=== PATIENT | female | born 1955 | race Caucasian/White ===

== ENCOUNTER 2016-10-23 14:58 | Emergency (ER) | payer MEDICARE, MEDICAID ==
[2016-10-23 15:25] VITALS: BP 145/93
[2016-10-23] MEDS ORDERED: IBUPROFEN 600 MG TABLET PO STA (15:48)
--- NOTE | 2016-10-23 15:48 | ED Physician Documentation ---
PD HPI LOWER EXT INJURY - Stated complaint Stated Complaint: R KNEE PX - Chief complaint Chief Complaint: Ext Problem - History obtained from History obtained from: Patient - History of Present Illness PD HPI LOW EXT INJURY LOCATION: Right, Hip, Knee Type of injury: Fall (she was walking up stairs with laundry when she felt her knee give out, pop, and cause her tof all to side. Some pain in hip as well, but mainly knee pain with ROM and walking. Feeling like it wants to pop again.) Where injury occurred: Home Timing - details: Abrupt onset, Still present Worsened by: Other (torsional movement while standing, also hurts with going up/ down steps.). No: Palpating Associated symptoms: Swelling (of the knee). No: Weakness, Numbness Similar symptoms before: Has not had sx before Recently seen: Not recently seen Review of Systems Cardiac: denies: Chest pain / pressure GI: denies: Abdominal Pain Skin: denies: Abrasion (s), Laceration (s) Musculoskeletal: reports: Extremity pain. 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, Breast implants, LEEP (Cervical surgery) - Present Medications Home Medications: Ambulatory Orders Medication Instructions Recorded Confirmed HYDROcod/ACETAM 5/325 [Vicodin 1 - 2 ea PO Q6H PRN #15 tablet 05/15/13 5/325] Hydrochlorothiazide 40 mg PO DAILY 05/15/13 05/15/13 Lisinopril 40 mg PO DAILY 05/15/13 05/15/13 Loratadine [Children's 10 mg PO DAILY 05/15/13 05/15/13 Clear-Atadine] Venlafaxine [Effexor] 75 mg PO DAILY 05/15/13 05/15/13 Hydrocodone/Acetaminophen [[place] 1 each PO Q6H PRN #20 tablet 10/23/16 5-325 Tablet] Naproxen 375 mg PO BID #20 tablet 10/23/16 - Allergies Allergies/Adverse Reactions: Allergies Allergy/AdvReac Type Severity Reaction Status Date / Time No Known Drug Allergies Allergy Verified 10/23/16 15:17 - Social History Does the pt smoke?: Yes Smoking Status: Current every day smoker Does the pt drink ETOH?: No Does the pt have substance abuse?: No - Immunizations Immunizations are current?: Yes PD ED PE NORMAL - Vitals Vital signs reviewed: Yes - General General: Alert and oriented X 3, No acute distress, Well developed/nourished - HEENT HEENT: Atraumatic - Neck Neck: Supple, no meningeal sign, No bony TTP, No adenopathy - Cardiac Cardiac: RRR, No murmur - Respiratory Respiratory: Clear bilaterally - Derm Derm: Normal color, Warm and dry, No rash - Extremities Extremities: Other (knee with mild effusion, no gross laxity with ligament testing, but does hurt with impacted rotational ([place]). No noted clicking. ) - Neuro Neuro: Alert and oriented X 3, No motor deficit, No sensory deficit Results - Vitals Vitals: Oxygen O2 Source Room air - Rads (name of study) knee Radiology: Prelim report reviewed (oval loose body in joint, presume old; no fractures, some arthritic changes. ) PD MEDICAL DECISION MAKING - ED course Complexity details: reviewed results, considered differential (knee generally painful for movement and twisting, with ligaments feeling okay. Mild effusion. Likely meniscal. ), d/w patient Departure - Departure Disposition: 01 Home, Self Care Clinical Impression: Knee strain Qualifiers: Encounter type: initial encounter Laterality: right Qualified Code(s): S86.911A - Strain of unspecified muscle(s) and tendon(s) at lower leg level, right leg, initial encounter Condition: Stable Record reviewed to determine appropriate education?: Yes Instructions: ED Meniscal Injury Knee Poss, ED Sprain Knee Follow-Up: Aubrey Pugh MD [Primary Care Provider] - Prescriptions: Naproxen 375 mg PO BID #20 tablet Hydrocodone/Acetaminophen [[place] 5-325 Tablet] 1 each PO Q6H PRN #20 tablet PRN Reason: Pain Comments: Naproxen or Ibuprofen twice daily. Cristian wrap for swelling of the knee. Knee brace when walking to support the knee ligaments and cartilage. Add hydrocodone as needed for pains. Follow up with PMD next week for recheck. Discharge Date/Time: 10/23/16 17:00
[2016-10-23] MEDS ORDERED: HYDROcod/ACETAM 5/325 MG TABLET PO STA (15:49)
[2016-10-23] MEDS ORDERED: HYDROcod/ACETAM 5/325 MG TABLET ONE (15:55)
[2016-10-23] MEDS ORDERED: IBUPROFEN 600 MG TABLET PO ONE (15:55)
--- NOTE | 2016-10-23 16:39 | XRAY Preliminary Report ---
Exam: XR Knee 4 View RT IMPRESSION: 1. No fracture. 2. Patellofemoral osteoarthritis with small osteophytes. 3. An oval shaped 8 x 6 mm calcified intra-articular loose body in the posterior part of the knee madison SCHMITT SITE ID: [id number]
--- NOTE | 2016-10-23 16:41 | XRAY Report ---
EXAM: RIGHT KNEE RADIOGRAPHY EXAM DATE: 10/23/2016 04:22 PM. CLINICAL HISTORY: Fall injury couple days ago; pain and swelling. COMPARISON: None. TECHNIQUE: 4 views. FINDINGS: Bones: No fractures or bone lesions. Joints: Patellofemoral osteoarthritis with small osteophytes. Nonspecific small effusion. No subluxat ions. An oval shaped 8 x 6 mm calcified intra-articular loose body is present in the posterior part o f the joint. Soft Tissues: Normal. No soft tissue swelling. IMPRESSION: 1. No fracture. 2. Patellofemoral osteoarthritis with small osteophytes. 3. An oval shaped 8 x 6 mm calcified intra-articular loose body in the posterior part of the knee madison SCHMITT Referring Provider Line: [phone] SITE ID: [id number]
== END 2016-10-23 17:00 | disposition home or self-care (01) ==
LOC: ED 14:58
DX: S86.911A Strain of unspecified muscle(s) and tendon(s) at lower leg level, right leg, initial encounter (principal); W10.9XXA Fall (on) (from) unspecified stairs and steps, initial encounter; Y92.018 Other place in single-family (private) house as the place of occurrence of the external cause; I10 Essential (primary) hypertension; Z86.73 Personal history of transient ischemic attack (TIA), and cerebral infarction without residual deficits; K21.9 Gastro-esophageal reflux disease without esophagitis; M19.90 Unspecified osteoarthritis, unspecified site; F17.200 Nicotine dependence, unspecified, uncomplicated
CPT/HCPCS: 73564; 99283; A9270

== ENCOUNTER 2017-06-10 11:38 | Outpatient (CLI) | payer MEDICARE, MEDICAID ==
--- NOTE | 2017-06-11 10:08 | XRAY Report ---
DATE OF SERVICE: 06/10/2017 LEFT KNEE: 06/10/2017 COMPARISON: None. INDICATION: Pain in the left knee. FINDINGS: There are mild tricompartmental degenerative changes. There is a small effusion. Alignment is normal. There is no evidence of acute fracture. There is a 2 cm calcification about the posterior knee, which is concerning for a loose body. IMPRESSION: 1. MILD TRICOMPARTMENTAL OSTEOARTHRITIS. 2. CONCERN FOR A POSTERIOR LOOSE BODY. CORRELATE CLINICALLY. TD: 06/11/2017 11:07 [place]
== END 2017-06-10 11:39 | disposition home or self-care (01) ==
LOC: DI.N 11:38
PROVIDERS: ATTEND Family Medicine
DX: M17.12 Unilateral primary osteoarthritis, left knee (principal)

== ENCOUNTER 2017-11-09 08:00 | Outpatient (CLI) | payer MEDICARE, MEDICAID ==
[2017-11-09 13:11] LABS: BASOPHILS % (AUTO) 0.5 %; EOSINOPHILS # (AUTO) 0.2 10^3/uL (0.0-0.7); EOSINOPHILS % (AUTO) 1.9 %; HGB - HEMOGLOBIN 15.3 g/dL (12.0-16.0); LYMPHOCYTES # (AUTO) 1.8 10^3/uL (1.5-3.5); LYMPHOCYTES % (AUTO) 20.4 %; MEAN CORPUSCULAR HEMOGLOBIN 31.7 pg (27.0-31.0); MEAN CORPUSCULAR HGB CONC 34.9 g/dL (32.0-36.0); MEAN CORPUSCULAR VOLUME 90.8 fL (81.0-99.0); MEAN PLATELET VOLUME 7.5 fL (7.9-10.8); MONOCYTES # (AUTO) 0.4 10^3/uL (0.0-1.0); MONOCYTES % (AUTO) 4.9 %; NEUTROPHILS # (AUTO) 6.6 10^3/uL (1.5-6.6); NEUTROPHILS % (AUTO) 72.3 %; PLT - PLATELET COUNT 252 10^3/uL (130-450); RED BLOOD COUNT 4.82 10^6/uL (4.20-5.40); RED CELL DISTRIBUTION WIDTH 12.5 % (12.0-15.0); WHITE BLOOD COUNT 9.1 x10^3/uL (4.8-10.8)
[2017-11-09 13:20] LABS: ALBUMIN 4.2 g/dL (3.2-5.5); ALBUMIN/GLOBULIN RATIO 1.4 (1.0-2.2); BILIRUBIN,TOTAL 0.6 mg/dL (0.2-1.0); CALCIUM 9.4 mg/dL (8.5-10.3); CREATININE 0.5 mg/dL (0.4-1.0); TOTAL PROTEIN 7.2 g/dL (6.7-8.2)
== END 2017-11-09 08:01 | disposition home or self-care (01) ==
LOC: LAB.N 08:00
PROVIDERS: ATTEND Family Medicine
DX: I10 Essential (primary) hypertension (principal)
CPT/HCPCS: 36415; 80053; 85025

== ENCOUNTER 2023-08-03 09:32 | Outpatient (CLI) | payer MEDICARE, MEDICAID ==
[2023-08-03 12:31] LABS: BASOPHILS # (AUTO) 0.1 10^3/uL (0.0-0.1); BASOPHILS % (AUTO) 1.2 %; EOSINOPHILS # (AUTO) 0.2 10^3/uL (0.0-0.7); EOSINOPHILS % (AUTO) 2.5 %; HCT - HEMATOCRIT 45.7 % (37.0-47.0); HGB - HEMOGLOBIN 15.7 g/dL (12.0-16.0); LYMPHOCYTES # (AUTO) 1.3 10^3/uL (1.5-3.5); LYMPHOCYTES % (AUTO) 15.3 %; MEAN CORPUSCULAR HEMOGLOBIN 32.5 pg (27.0-31.0); MEAN CORPUSCULAR HGB CONC 34.4 g/dL (32.0-36.0); MEAN CORPUSCULAR VOLUME 94.6 fL (81.0-99.0); MONOCYTES # (AUTO) 0.5 10^3/uL (0.0-1.0); MONOCYTES % (AUTO) 5.6 %; NEUTROPHILS # (AUTO) 6.4 10^3/uL (1.5-6.6); NEUTROPHILS % (AUTO) 75.2 %; PLT - PLATELET COUNT 236 10^3/uL (130-450); RED BLOOD COUNT 4.83 10^6/uL (4.20-5.40); RED CELL DISTRIBUTION WIDTH 11.7 % (12.0-15.0); WHITE BLOOD COUNT 8.5 x10^3/uL (4.8-10.8)
[2023-08-03 14:38] LABS: THYROID STIMULATING HORMONE 0.44 uIU/mL (0.34-5.60)
[2023-08-03 14:42] LABS: ALBUMIN 4.4 g/dL (3.2-5.5); ALBUMIN/GLOBULIN RATIO 1.6 (1.0-2.2); ALKALINE PHOSPHATASE 93 IU/L (42-121); ALT ALANINE AMINOTRANSFERASE 14 IU/L (10-60); AST ASPARTATE AMINOTRANSFERASE 20 IU/L (10-42); BILIRUBIN,TOTAL 0.5 mg/dL (0.2-1.0); BUN - BLOOD UREA NITROGEN 9 mg/dL (6-20); CALCIUM 10.1 mg/dL (8.5-10.3); CARBON DIOXIDE - CO2 31 mmol/L (21-32); CHLORIDE 96 mmol/L (101-111); CHOL/HDL RATIO 2.6 (<4.4); CHOLESTEROL 168 mg/dL; CREATININE 0.5 mg/dL (0.6-1.3); GAMMA GLUTAMYL TRANSPEPTIDASE 24 IU/L (9-64); GFR - MDRD 123 (>89); GLUCOSE 105 mg/dL (74-104); HDL CHOLESTEROL 64 mg/dL; LDL CHOLESTEROL,CALCULATED 86 mg/dL; LDL/HDL RATIO 1.3 (<4.4); POTASSIUM 3.3 mmol/L (3.5-4.5); SODIUM 135 mmol/L (135-145); TOTAL PROTEIN 7.2 g/dL (6.4-8.9); TRIGLYCERIDES 92 mg/dL (48-352); VLDL CHOLESTEROL 18 mg/dL
== END 2023-08-03 09:33 | disposition home or self-care (01) ==
LOC: LAB.N 09:32
PROVIDERS: ATTEND Nurse Practitioner
DX: I10 Essential (primary) hypertension (principal); Z13.220 Encounter for screening for lipoid disorders; F41.9 Anxiety disorder, unspecified; F32.A Depression, unspecified
CPT/HCPCS: 36415; 80053; 80061; 82977; 83721; 84443; 85025

== ENCOUNTER 2024-03-03 11:45 | Inpatient (IN) ==
[2024-03-03] MEDS: PANTOPRAZOLE 40 MG VIAL IVP STA (12:34)
[2024-03-03 12:54] LABS: BASOPHILS # (AUTO) 0.1 10^3/uL (0.0-0.1); BASOPHILS % (AUTO) 0.4 %; EOSINOPHILS % (AUTO) 0.1 %; HCT - HEMATOCRIT 30.8 % (37.0-47.0); HGB - HEMOGLOBIN 10.7 g/dL (12.0-16.0); LYMPHOCYTES # (AUTO) 1.4 10^3/uL (1.5-3.5); MEAN CORPUSCULAR HEMOGLOBIN 33.1 pg (27.0-31.0); MEAN CORPUSCULAR HGB CONC 34.7 g/dL (32.0-36.0); MEAN CORPUSCULAR VOLUME 95.4 fL (81.0-99.0); MEAN PLATELET VOLUME 8.9 fL (7.9-10.8); MONOCYTES # (AUTO) 0.5 10^3/uL (0.0-1.0); MONOCYTES % (AUTO) 3.1 %; NEUTROPHILS # (AUTO) 15.1 10^3/uL (1.5-6.6); NEUTROPHILS % (AUTO) 87.9 %; PLT - PLATELET COUNT 246 10^3/uL (130-450); RED BLOOD COUNT 3.23 10^6/uL (4.20-5.40); RED CELL DISTRIBUTION WIDTH 13.5 % (12.0-15.0); WHITE BLOOD COUNT 17.2 x10^3/uL (4.8-10.8)
[2024-03-03 12:59] LABS: INR 1.3 (0.8-1.2); PT - PROTHROMBIN TIME 13.5 secs (9.9-12.6)
[2024-03-03 13:04] LABS: ALBUMIN 3.7 g/dL (3.2-5.5); ALBUMIN/GLOBULIN RATIO 1.9 (1.0-2.2); ALKALINE PHOSPHATASE 57 IU/L (42-121); ALT ALANINE AMINOTRANSFERASE 8 IU/L (10-60); AST ASPARTATE AMINOTRANSFERASE 11 IU/L (10-42); BILIRUBIN,TOTAL 0.5 mg/dL (0.2-1.0); BUN - BLOOD UREA NITROGEN 45 mg/dL (6-20); CALCIUM 9.3 mg/dL (8.5-10.3); CARBON DIOXIDE - CO2 27 mmol/L (21-32); CHLORIDE 103 mmol/L (101-111); CREATININE 0.4 mg/dL (0.6-1.3); GFR - MDRD 160 (>89); GLUCOSE 105 mg/dL (74-104); POTASSIUM 2.9 mmol/L (3.5-4.5); SODIUM 140 mmol/L (135-145); TOTAL PROTEIN 5.7 g/dL (6.4-8.9)
[2024-03-03 13:05] LABS: LIPASE < 10 U/L (11-82)
[2024-03-03] MEDS ORDERED: iohexoL-300 100 ML VIAL ONE (13:43)
[2024-03-03] MEDS: POTASSIUM CHLOR 10 MEQ/100 ML 10 MEQ/100 ML BAG IV SCH (14:15)
--- NOTE | 2024-03-03 16:18 | ED Physician Documentation ---
History of Present Illness - Stated complaint Stated Complaint: ABD PX - Chief complaint Chief Complaint: Abd Pain - Additonal information Additional information: 68-year-old female presents with 4-day history of diarrhea, dark tarry stools. Also endorses for epigastric abdominal pain. Denies history of previous GI bleeds, blood thinning medications, but does report infrequent use nonsteroidal anti-inflammatory medications. Denies alcohol abuse. 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, Breast implants, LEEP (Cervical surgery) - Present Medications Home Medications: Ambulatory Orders Medication Instructions Recorded Confirmed HYDROcod/ACETAM 5/325 [Vicodin 1 - 2 ea PO Q6H PRN #15 tablet 05/15/13 5/325] Loratadine [Children's 10 mg PO DAILY 05/15/13 05/15/13 Clear-Atadine] Venlafaxine [Effexor] 75 mg PO DAILY 05/15/13 05/15/13 hydroCHLOROthiazide 40 mg PO DAILY 05/15/13 05/15/13 [Hydrochlorothiazide] lisinopriL [Lisinopril] 40 mg PO DAILY 05/15/13 05/15/13 Hydrocodone/Acetaminophen [[place] 1 each PO Q6H PRN #20 tablet 10/23/16 5-325 Tablet] Naproxen 375 mg PO BID #20 tablet 10/23/16 - Allergies Allergies/Adverse Reactions: Allergies Allergy/AdvReac Type Severity Reaction Status Date / Time No Known Drug Allergies Allergy Verified 03/03/24 12:03 - Social History Does the pt smoke?: Yes Smoking Status: Current every day smoker Does the pt drink ETOH?: No Does the pt have substance abuse?: No - Immunizations Immunizations are current?: Yes - POLST Patient has POLST: No PD ED PE NORMAL - Vitals Vital signs reviewed: Yes (Tachycardic) - General General: Alert and oriented X 3, No acute distress, Well developed/nourished - HEENT HEENT: Atraumatic, PERRL, EOMI, Ears normal, Moist mucous membranes, Pharynx benign - Neck Neck: Supple, no meningeal sign - Cardiac Cardiac: RRR - Respiratory Respiratory: No respiratory distress - Abdomen Abdomen: Normal bowel sounds - Female Female : Deferred - Rectal Rectal: Other (PositiveMelena) - Back Back: No CVA TTP - Derm Derm: Normal color - Extremities Extremities: No deformity Results - Vitals Vitals: Vital Signs - 24 hr 03/03/24 03/03/24 03/03/24 11:58 13:51 15:20 Temperature 35.8 C L Heart Rate 106 H 110 H 107 H Respiratory 18 Rate Blood Pressure 149/90 H 137/89 H 130/101 H O2 Saturation 96 97 95 03/03/24 17:00 Temperature Heart Rate 102 H Respiratory 12 Rate Blood Pressure 140/88 H O2 Saturation 94 Oxygen O2 Source Room air - EKG (time done) 1238 EKG releavant findings:: EKG personally interpreted by author of this note. Relevant findings are: Sinus rhythm with rate 109 bpm. Normal axis. Normal UT, QRS, QTc intervals. No ST segment elevations. Nonspecific ST-T wave abnormalities and incomplete left bundle branch block throughout. - Labs Labs: Microbiology 03/03/24 12:09 Occult Blood - Final Stool Laboratory Tests 03/03/24 03/03/24 03/03/24 12:43 12:43 12:43 WBC 17.2 H RBC 3.23 L Hgb 10.7 L Hct 30.8 L MCV 95.4 MCH 33.1 H MCHC 34.7 RDW 13.5 Plt Count 246 MPV 8.9 Neut # (Auto) 15.1 H Lymph # (Auto) 1.4 L [place] # (Auto) 0.5 Eos # (Auto) 0.0 Baso # (Auto) 0.1 Absolute Nucleated RBC 0.00 Nucleated RBC % 0.0 PT 13.5 H INR 1.3 H Sodium 140 Potassium 2.9 L Chloride 103 Carbon Dioxide 27 Anion Gap 10.0 BUN 45 H Creatinine 0.4 L Estimated GFR (MDRD) 160 Glucose 105 H Lactic Acid Calcium 9.3 Total Bilirubin 0.5 AST 11 ALT 8 L Alkaline Phosphatase 57 Total Protein 5.7 L Albumin 3.7 Globulin 2.0 L Albumin/Globulin Ratio 1.9 Lipase < 10 L Blood Type Blood Type Recheck Antibody Screen 03/03/24 03/03/24 03/03/24 12:43 12:43 13:37 WBC RBC Hgb Hct MCV MCH MCHC RDW Plt Count MPV Neut # (Auto) Lymph # (Auto) [place] # (Auto) Eos # (Auto) Baso # (Auto) Absolute Nucleated RBC Nucleated RBC % PT INR Sodium Potassium Chloride Carbon Dioxide Anion Gap BUN Creatinine Estimated GFR (MDRD) Glucose Lactic Acid 1.2 Calcium Total Bilirubin AST ALT Alkaline Phosphatase Total Protein Albumin Globulin Albumin/Globulin Ratio Lipase Blood Type O NEGATIVE Blood Type Recheck O NEGATIVE Antibody Screen NEGATIVE 03/03/24 16:39 WBC RBC Hgb 10.1 L Hct 29.5 L MCV MCH MCHC RDW Plt Count MPV Neut # (Auto) Lymph # (Auto) [place] # (Auto) Eos # (Auto) Baso # (Auto) Absolute Nucleated RBC Nucleated RBC % PT INR Sodium Potassium Chloride Carbon Dioxide Anion Gap BUN Creatinine Estimated GFR (MDRD) Glucose Lactic Acid Calcium Total Bilirubin AST ALT Alkaline Phosphatase Total Protein Albumin Globulin Albumin/Globulin Ratio Lipase Blood Type Blood Type Recheck Antibody Screen PD Medical Decision Making - ED course Complexity details: reviewed results, d/w patient, d/w tax consultant ED course: 68-year-old presents with 4-day history dark tarry stool. Afebrile, hematin stable and arrival to the emergency department. Obvious melena on exam. Patient denies chest pain but EKG demonstrates some nonspecific ST-T wave abnormalities. Hemoglobin 10.7 on arrival, baseline is approximately 14-15. Given 1 L IV hydration, IV Protonix, potassium repletion. Repeat H&H 10.1. Discussed with general surgical service at hospitalist who graciously agrees to hospitalize for further evaluation and serve. Departure - Departure Disposition: 68 [facility] DC/[facility] Clinical Impression: Upper GI bleed Discharge Date/Time: 03/03/24 18:40
[2024-03-03] MEDS: iohexoL-300 100 ML VIAL IVP ONE (16:20)
--- NOTE | 2024-03-03 16:27 | CT Report ---
PROCEDURE: Angio Abdomen INDICATIONS: GI Bleed CONTRAST: omni 300, 100 TECHNIQUE: After the administration of intravenous contrast, 2 and 5 mm sections acquired from the diaphragm to the iliac crests. 3-dimensional maximum intensity projection (MIP) coronal and sagittal reformats, a nd/or 3-dimensional volume rendering reformatting was then performed. For radiation dose reduction, the following was used: automated exposure control, adjustment of mA and/or kV according to patient size. COMPARISON: 02/28/2011 FINDINGS: Image quality: Excellent. Extravascular tissues: Scattered atelectasis at bilateral lung bases are seen.. Heart size is enlarg ed. Bilateral breast implants are grossly intact. There is hepatomegaly, no discrete hepatic lesion. Spleen is normal in size. Gallbladder is within no rmal limits. Biliary system is non dilated. Pancreas enhances normally. No adrenal nodules. Conge nital malrotation of right kidney is seen. Kidneys are normal in size and enhancement, without hydron ephrosis. Non-opacified bowel loops demonstrate normal wall thickness and caliber. No free fluid or air. No retroperitoneal or mesenteric adenopathy. No ventral hernias. No suspicious bony abnormal ities. No vertebral body compression fractures. Abdominal aorta: No abdominal aortic aneurysm or dissection. No hemodynamically significant stenosis Mesenteric arteries: Mesenteric arteries are well-opacified without hemodynamically significant sten osis or aneurysm. More distal branches of mesenteric arteries are fairly well opacified. No area of a ctive contrast accumulation is seen. Renal arteries: Atherosclerotic plaques are noted involving origins of bilateral renal arteries with less than 50% stenosis slightly worse on the right side. IMPRESSION: 1. No abdominal aortic aneurysm or dissection. No hemodynamically significant stenosis is seen in the abdominal aorta. 2. Normal contrast opacification of the mesenteric arteries and bilateral renal arteries. No area of active contrast extravasation or accumulation to suggest active bleeding. 3. There is no bowel obstruction or abnormal bowel wall thickening. No free fluid or free air. 4. Congenital malrotation of right kidney. No obstructing renal stones or hydronephrosis. Reviewed by: Иван Diaz MD on 03/03/2024 4:26 PM PDT Approved by: Иван Diaz MD on 03/03/2024 4:26 PM PDT Station ID: [id number]
[2024-03-03] MEDS: PANTOPRAZOLE 80 MG in SODIUM CHLORIDE 0.9% 100ML 100 ML IV STA (16:34)
[2024-03-03] MEDS: POTASSIUM CHLORIDE 20 MEQ/15 ML UDC PO STA (16:41)
[2024-03-03 16:43] LABS: HCT - HEMATOCRIT 29.5 % (37.0-47.0); HGB - HEMOGLOBIN 10.1 g/dL (12.0-16.0)
--- NOTE | 2024-03-03 17:50 | ANESTHESIA ---
Pre-Anesthesia VS, & Labs - Diagnosis gi bleed - Procedure egd Vital Signs: Temp Pulse Resp BP Pulse Ox O2 Flow Rate 35.8 C L 107 H 18 130/101 H 95 03/03/24 11:58 03/03/24 15:20 03/03/24 11:58 03/03/24 15:20 03/03/24 15:20 Height: 5 ft 7 in Weight (kg): 56 kg Body Mass Index: 19.3 BMI Classification: Normal - NPO >8 hours Last Food Intake: wednesday - Is Patient ?: No - Lab Results Current Lab Results: Laboratory Tests 03/03/24 16:39: Hgb 10.1 L, Hct 29.5 L 03/03/24 13:37: Blood Type Recheck O NEGATIVE 03/03/24 12:43: Blood Type O NEGATIVE, Antibody Screen NEGATIVE 03/03/24 12:43: Lactic Acid 1.2 03/03/24 12:43: Sodium 140, Potassium 2.9 L, Chloride 103, Carbon Dioxide 27, Anion Gap 10.0, BUN 45 H, Creatinine 0.4 L, Estimated GFR (MDRD) 160, Glucose 10 5 H, Calcium 9.3, Total Bilirubin 0.5, AST 11, ALT 8 L, Alkaline Phosphatase 57, Total Protein 5.7 L, Albumin 3.7, Globulin 2.0 L, Albumin/Globulin Ratio 1.9, Lipase < 10 L 03/03/24 12:43: PT 13.5 H, INR 1.3 H 03/03/24 12:43: WBC 17.2 H, RBC 3.23 L, Hgb 10.7 L, Hct 30.8 L, MCV 95.4, MCH 33.1 H, MCHC 34.7, RDW 13.5, Plt Count 246, MPV 8.9, Neut # (Auto) 15.1 H, Lymph # (Auto) 1.4 L, [place] # (Auto) 0.5, Eos # (Auto) 0.0, Baso # (Auto) 0.1, Absolute Nucleated RBC 0.00, Nucleated RBC % 0.0 Lab results reviewed: Yes Fish Bones: 03/03/24 16:39 03/03/24 12:43 Home Medications and Allergies Active Medications Potassium Chloride (Potassium Chloride) 10 meq in 100 mls @ 100 mls/hr IV Q1H ESTER Stop: 03/03/24 17:59 Last Admin: 03/03/24 16:20 Dose: Not Given Pantoprazole Sodium 80 mg/ (Sodium Chloride) 100 mls @ 10 mls/hr IV .Q10H STA Stop: 03/03/24 23:05 Last Admin: 03/03/24 16:34 Dose: 10 mls/hr Loratadine [Children's Clear-Atadine] 10 mg PO DAILY 05/15/13 Venlafaxine [Effexor] 75 mg PO DAILY 05/15/13 hydroCHLOROthiazide [Hydrochlorothiazide] 40 mg PO DAILY 05/15/13 lisinopriL [Lisinopril] 40 mg PO DAILY 05/15/13 Allergies/Adverse Reactions: Allergies Allergy/AdvReac Type Severity Reaction Status Date / Time No Known Drug Allergies Allergy Verified 03/03/24 12:03 Anes History & Medical History - Anesthetic History Anesthesia Complications: reports: No previous complications - Medical History Cardiovascular: reports: Hypertension Pulmonary: reports: Shortness of breath (long time smoker) Gastrointestinal: reports: GERD Musculoskeletal: reports: Osteoarthritis Endocrine/Autoimmune: reports: None Smoking Status: Current every day smoker Psychosocial: reports: No issues indicated - Surgical History General: reports: Hiatal hernia repair Gynecologic: reports: section, Breast implants, LEEP (Cervical surgery) Exam General: Alert, Oriented x3 Dental: Dentures full Upper Mouth Openin Fingerbreadth Neck Mobility: Normal Mallampati classification: II Thyromental Distance: less than 4 cm Plan Anesthesia Type: Total IV Consent for Procedure(s) Verified and Reviewed: Yes Code Status: Attempt Resuscitation ASA classification: 2-Mild systemic disease Is this case an emergency?: Yes
[2024-03-03] MEDS ORDERED: ONDANSETRON ODT 4 MG TABLET TL PRN (17:51)
[2024-03-03] MEDS ORDERED: ONDANSETRON 4 MG/2 ML VIAL IVP PRN ×2 (17:51→20:48)
--- NOTE | 2024-03-03 17:53 | CONSULTATION NOTE ---
Referring Provider Consult Date: 03/03/24 Chief Complaint - Chief Complaint Chief Complaint: epigastric pain History of Present Illness - History of Present Illness HPI Comment/Other: 68yoF with 3d of epigastric pain, anorexia, and black diarrhea. She denies n/v. States she has not eaten since wednesday. Feels lightheaded. Has not had similar pain in the past. Has never had an EGD. Had a colonoscopy last year. Lives with roomates and called EMS to get to the ED. 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, LEEP (Cervical surgery) - Family & Social History Living arrangement: At home Living Situation: With friend(s) - POLST Patient has POLST: No Meds/Allgy - Home Medications Home Medications: Ambulatory Orders Medication Instructions Recorded Confirmed HYDROcod/ACETAM 5/325 [Vicodin 1 - 2 ea PO Q6H PRN #15 tablet 05/15/13 5/325] Loratadine [Children's 10 mg PO DAILY 05/15/13 05/15/13 Clear-Atadine] Venlafaxine [Effexor] 75 mg PO DAILY 05/15/13 05/15/13 hydroCHLOROthiazide 40 mg PO DAILY 05/15/13 05/15/13 [Hydrochlorothiazide] lisinopriL [Lisinopril] 40 mg PO DAILY 05/15/13 05/15/13 Hydrocodone/Acetaminophen [[place] 1 each PO Q6H PRN #20 tablet 10/23/16 5-325 Tablet] Naproxen 375 mg PO BID #20 tablet 10/23/16 - Allergies Allergies/Adverse Reactions: Allergies Allergy/AdvReac Type Severity Reaction Status Date / Time No Known Drug Allergies Allergy Verified 03/03/24 12:03 Review of Systems - Constitutional Constitutional: reports: Fatigue, Weakness - Gastrointestinal Gastrointestinal: reports: Abdominal pain, Diarrhea, Black stools. denies: Vomiting Exam - Vital Signs Reviewed Vital Signs: Yes Vital Signs: Vital Signs x48h Temp Pulse Resp BP Pulse Ox 03/03/24 17:00 102 H 12 140/88 H 94 03/03/24 15:20 107 H 130/101 H 95 03/03/24 13:51 110 H 137/89 H 97 03/03/24 11:58 35.8 C L 106 H 18 149/90 H 96 - Physical Exam General Appearance: positive: Mild distress Eyes Bilateral: positive: Normal inspection, PERRL ENT: positive: ENT inspection nml Neck: positive: Nml inspection Respiratory: positive: No respiratory distress, Breath sounds nml Cardiovascular: positive: Regular rate & rhythm Peripheral Pulses: positive: 2+ Abdomen: positive: No distention, Tenderness (mild epigastric ttp). negative: Guarding, Rebound Skin: positive: Dry, Pallor Extremities: positive: Non-tender Neurologic/Psychiatric: positive: Oriented x3 Conclusion and Plan - Lab Results Microbiology Results 03/03/24 12:09 Stool Occult Blood - Final Laboratory Results 03/03/24 16:39: Hgb 10.1 L, Hct 29.5 L 03/03/24 13:37: Blood Type Recheck O NEGATIVE 03/03/24 12:43: Blood Type O NEGATIVE, Antibody Screen NEGATIVE 03/03/24 12:43: Lactic Acid 1.2 03/03/24 12:43: Sodium 140, Potassium 2.9 L, Chloride 103, Carbon Dioxide 27, Anion Gap 10.0, BUN 45 H, Creatinine 0.4 L, Estimated GFR (MDRD) 160, Glucose 105 H, Calcium 9.3, Total Bilirubin 0.5, AST 11, ALT 8 L, Alkaline Phosphatase 57, Total Protein 5.7 L, Albumin 3.7, Globulin 2.0 L, Albumin/Globulin Ratio 1.9, Lipase < 10 L 03/03/24 12:43: PT 13.5 H, INR 1.3 H 03/03/24 12:43: WBC 17.2 H, RBC 3.23 L, Hgb 10.7 L, Hct 30.8 L, MCV 95.4, MCH 33.1 H, MCHC 34.7, RDW 13.5, Plt Count 246, MPV 8.9, Neut # (Auto) 15.1 H, Lymph # (Auto) 1.4 L, [place] # (Auto) 0.5, Eos # (Auto) 0.0, Baso # (Auto) 0.1, Absolute Nucleated RBC 0.00, Nucleated RBC % 0.0 - Diagnosis Diagnosis: GI bleed - Consultation Note Consultation Note: 68yoF with GIB with 3d of black stools/diarrhea, most likely UGIB given epigastric pain. She carries a dx of GERD but does not take any antacid and has not had an EGD before. She is not anticoagulated, INR is 1.3, hgb is 5 points below her baseline at 10. She is tachycardic between 105-110 without hypotension or hypoxia. FOBT was positive in the ED. Discussed the indications, risks, and benefits of EGD with her, to include the risks of pain, bloating, perforation, bleeding, missed lesion. She understands and consent was obtained. - protonix started in the ED - IVF - to OR for EGD - admit to IM, trend hgb, continue BID protonix - if no source of bleed seen on EGD, will bowel prep and do colonoscopy tomorrow. Debra Rees DO General Surgeon
[2024-03-03] MEDS ORDERED: LIDOCAINE-PF 2% 10 ML AMP SUBQ ONE (17:58)
[2024-03-03] MEDS ORDERED: PROPOFOL 500 MG/50 ML 500 MG/50 ML VIAL ONE (17:58)
--- NOTE | 2024-03-03 18:02 | HISTORY & PHYSICAL EXAMINATION ---
Chief Complaint - Chief Complaint Chief Complaint: abdominal pain with dark stool and diarrhea History of Present Illness - Admitted From Admitted From:: Via ambulance - History Obtained From Records Reviewed: [facility] History obtained from: ER provider and surgeon Exam Limitations: none - History of Present Illness HPI Comment/Other: 68-year-old white female who does not drink alcohol to excess , nor does she have a history of peptic ulcer disease. She does use chronic daily aspirin that presents with epigastric abdominal pain with shortness of air. It started 3 days ago and the pain was waxing and waning. Also starting 3 days ago with loose stools that became very very dark. She denied any nausea, or vomiting. No antecedent weight loss. In the emergency room temperature was 35.8, heart rate 106. Blood pressure 149/90. Respirations 18. 96% on room air. She was rating her pain at a 7 out of a 10. Examination had hypoactive bowel sounds with a tender epigastrium. White cell count was 17.2. Hemoglobin 10.7. She presented approximately 12:30 in the afternoon and a repeat hemoglobin at 4:30 in the afternoon was 10.1. INR was 1.3. Potassium 2.9. BUN 45, creatinine 0.4. Lactic acid 1.2. Liver enzymes low. Total protein 5.7. Lipase less than 10. CT of the abdomen did not have abdominal aortic aneurysm or dissection. No stenosis seen in the abdominal aorta. She had normal contrast opacification of the mesenteric and bilateral renal arteries. No areas of active contrast extravasation or accumulation to suggest active bleeding. Bowel appeared normal. Congenital malrotation of the right kidney. she did have hepatomegaly. General surgery was contacted. I have discussed the case with them. Most likely we are dealing with an upper GI bleed secondary to chronic aspirin use. Surgery is asking that my service be in charge of this patient and that they will consult. Plan is for her to go to the endoscopy suite to get an EGD. I have ordered a type and screen and will have blood ready. History - Past Medical History Cardiovascular: reports: Hypertension, Peripheral Vascular Disease (Raynaud) Respiratory: reports: Shortness of breath (long time smoker) Endocrine/Autoimmune: reports: None GI: reports: GERD HEALTH SAFETY ENGINEER: reports: Other ( Postmenopausal bleeding. Pelvic ultrasound August 2022 with 1.6 mm endometrium. Unremarkable.) : reports: Incontinence, Other ( Right groin adenopathy October 2022. With vaginal pink discharge. Trichomonas.) HEENT: reports: None Psych: reports: Depression (sees mental health [employer] Ashok), Anxiety ( Prefers lorazepam. States her propranolol and hydroxyzine do nothing for her.), Panic attacks (severe, prefers lorazepam), Other ( Opioid use disorder. Previously on Percocet and Vicodin and off of them since 2022.) Musculoskeletal: reports: Osteoarthritis, Osteoporosis ( alendronate started December 21, 2023) Derm: reports: None MRSA Hx?: No Other Past Medical History: silicon breast implant rupture - Past Surgical History General: reports: Other (inguinal hernia repair ) /HEALTH SAFETY ENGINEER: reports: section, Breast implants (silicon), LEEP (Cervical surgery) - Family & Social History Family History Comment/Other: Mom has depression. 1 sister has leukemia. Second sister has lung cancer. Living arrangement: At home Living Situation: With friend(s) Social History Notes: 1/2 Pack per day smoker. - POLST Patient has POLST: No Meds/Allgy - Home Medications Home Medications: Ambulatory Orders Medication Instructions Recorded Confirmed HYDROcod/ACETAM 5/325 [Vicodin 1 - 2 ea PO Q6H PRN #15 tablet 05/15/13 5/325] Loratadine [Children's 10 mg PO DAILY 05/15/13 05/15/13 Clear-Atadine] Venlafaxine [Effexor] 75 mg PO DAILY 05/15/13 05/15/13 hydroCHLOROthiazide 40 mg PO DAILY 05/15/13 05/15/13 [Hydrochlorothiazide] lisinopriL [Lisinopril] 40 mg PO DAILY 05/15/13 05/15/13 Hydrocodone/Acetaminophen [[place] 1 each PO Q6H PRN #20 tablet 10/23/16 5-325 Tablet] Naproxen 375 mg PO BID #20 tablet 10/23/16 - Allergies Allergies/Adverse Reactions: Allergies Allergy/AdvReac Type Severity Reaction Status Date / Time No Known Drug Allergies Allergy Verified 03/03/24 12:03 Review of Systems - Constitutional Constitutional: denies: Fatigue, Fever, Weakness - Eyes Eyes: denies: Pain, Irritation, Amaurosis, Blurred vision - Ears, Nose & Throat Ears, Nose & Throat: denies: Hearing loss, Hearing aids, Vertigo, Nasal obstruction, Nasal congestion, Postnasal drainage, Sore throat - Cardiovascular Cariovascular: reports: Chest pain, Exertional dyspnea, Decr. exercise tolerance. denies: Irregular heart rate, Palpitations - Respiratory Respiratory: reports: SOB at rest, SOB with exertion. denies: Cough, Sputum production, Wheezing, Snoring - Gastrointestinal Gastrointestinal: reports: Abdominal pain, Diarrhea, Change in bowel habits, Black stools, Nausea. denies: Constipation, Rectal bleeding, Bloody stools, Vomiting, [place] blood emesis, Coffee grounds emesis - Genitourinary Genitourinary: reports: Urgency, Other ( more HSV-2 outbreaks. Started on prophylactic valacyclovir as needed December 2023) - Musculoskeletal Musculoskeletal: denies: Muscle pain, Back pain, Muscle aches, Stiffness - Integumentary Integumentary: denies: Rash, Pruritis, Lesions, Dryness - Neurological Neurological: denies: General weakness, Focal weakness, Headache, Dizziness, Numbness, Memory problems, Pre-existing deficit - Psychiatric Psychiatric: reports: Depression, Anxiety. denies: Delusions, Hallucinations - Endocrine Endocrine: reports: Intolerance to cold. denies: Polyuria, Polydypsia, Polyphagia - Hematologic/Lymphatic Hematologic/Lymphatic: denies: Anemia, Bruising, Blood clots, Lymphadenopathy Prior Level of Functionality: dependent with activities of daily living. No use of durable medical equipment. Exam - Vital Signs Reviewed Vital Signs: Yes Vital Signs: Vital Signs x48h Temp Pulse Resp BP Pulse Ox 03/03/24 17:00 102 H 12 140/88 H 94 03/03/24 15:20 107 H 130/101 H 95 03/03/24 13:51 110 H 137/89 H 97 03/03/24 11:58 35.8 C L 106 H 18 149/90 H 96 - Physical Exam General Appearance: positive: No acute distress, Alert, Other ( Seeing her after her endoscopy.) Eyes Bilateral: positive: PERRL, EOMI ENT: positive: Pharynx nml Neck: positive: No JVD. negative: Stiff neck Respiratory: positive: No respiratory distress. negative: Wheezes, Rales, Rh onchi Cardiovascular: positive: Regular rate & rhythm, Tachycardia Peripheral Pulses: positive: 1+ Abdomen: positive: No organomegaly, Nml bowel sounds, No distention, Other ( Aching epigastrium) Skin: positive: Warm, Dry, Pallor Extremities: positive: Full ROM, No pedal edema Neurologic/Psychiatric: positive: Oriented x3, CN's nml (2-12), Motor nml Conclusion/Plan - Problem List (1) Melena Conclusion/Plan: Attributed to upper GI bleed. At this time there is no definitive history of alcohol abuse. As such we are not suspecting esophageal varices or alcoholic ga stritis. MCV is normal. She does take aspirin on a daily basis. So we suspect that she has nonsteroidal induced gastritis. Plan: Observation status n.p.o. status and I have spoken to general surgery. She is to go for EGD now I will check hemoglobin after her EGD Type and screen for 1 unit of blood and be prepared to transfuse if she drops below 7 g of hemoglobin Protonix IV push given in the emergency room. I will continue Protonix IV push daily and switch to oral when she can take p.o. (2) Acute blood loss anemia Conclusion/Plan: Hemoglobin in July 2023 is 15.7 when I review her office chart. Today's hemoglobin is 5 g below that. Albeit it is stable 4 hours apart when checked in the ER. Transfusion is indicated when hemoglobin is below 7. I will, as stated above, check hemoglobin after EGD. Check hemoglobin again tomorrow morning. I have already tried and screened her for 1 unit of blood. (3) Generalized anxiety disorder Conclusion/Plan: She takes lorazepam half milligram tablet twice a day as needed. Not to exceed 2 tablets a day. Last fill was February 10. Plan: I plan to give her her half a milligram p.o. twice daily. If she remains n.p.o. I will give her half a milligram IV push twice daily. Both of them will be as needed. (4) Tobacco abuse Conclusion/Plan: This may be contributing to gastritis. Taking an aspirin and smoking. She was given nicotine Patch in the primary care provider office. plan: Nicotine 14 mg per 24-hour patch - Lab Results Lab results reviewed: Yes Fish Bones: 03/03/24 16:39 03/03/24 12:43
[2024-03-03] MEDS ORDERED: fentaNYL 100 MCG/2 ML VIAL ONE ×3 (19:03→19:58)
[2024-03-03] MEDS ORDERED: LABETALOL 5 MG/1 ML 20 ML MDV ONE (19:07)
[2024-03-03] MEDS ORDERED: ePHEDrine 50 MG/ML VIAL IVP ONE (19:12)
[2024-03-03] MEDS ORDERED: PHENYLEPHRINE HCL 0.5 MG/5 ML AMPULE ONE (19:12)
[2024-03-03] MEDS ORDERED: EPINEPHrine 1 MG/ML AMP ONE (19:16)
[2024-03-03] MEDS ORDERED: THROMBIN (RECOMBINANT) 5,000 UNIT VIAL TOP ONE (19:17)
[2024-03-03] MEDS ORDERED: SUCCINYLCHOLINE 200 MG/10 ML VIAL ONE (19:24)
[2024-03-03] MEDS ORDERED: ONDANSETRON 4 MG/2 ML VIAL ONE (19:24)
[2024-03-03] MEDS ORDERED: PROPOFOL 200 MG/20 ML VIAL IVP ONE (19:55)
[2024-03-03] MEDS: EPINEPHrine 1 MG/ML AMP SUBQ ONE (20:00)
[2024-03-03] MEDS: SODIUM CHLORIDE 0.9% 10 ML VIAL IVP ONE (20:00)
[2024-03-03] MEDS: THROMBIN (RECOMBINANT) 5,000 UNIT VIAL TOP ONE (20:00)
[2024-03-03] MEDS: LACTATED RINGERS 100 ML IV ONE (20:24)
--- NOTE | 2024-03-03 20:33 | OPERATIVE REPORT ---
Operative Report - General Admit Date: 03/03/24 Procedure Date: 03/03/24 Pre-Op Diagnosis: GI bleed Procedure Performed: EGD with interventions (biopsy, hemorrhage control) Post Op Diagnosis: Upper GI Bleed - Procedure Note Primary Surgeon: Debra Rees DO Anesthesia Provider: Manish Sevilla CRNA Anesthesia Technique: General ET tube Pathology: 1) Random duodenal biopsies 2) Random antral biopsies 3) Cold forcep biopsy of prepyloric ulcer 4) Cold forcep biopsy of rosendo's ulcer Estimated Blood Loss (mL): 15 Indications: GI Bleed, epigastric pain Findings: Gastric lumen full of large volume blood, fresh mixed with old. Three sites of bleeding identified: 1) Hemorrhagic duodenitis throughout entire duodenum (bulb - 3rd portion), 2) bleeding prepyloric ulcer, 4) bleeding rosendo's ulcer. Both ulcers were injected with epinephrine, and camerons ulcer also treated with coagulation. Hemostasis achieved at both sites. Complications: none - Other Other Information/Narrative: Full endoscopy report with images to be uploaded from endoscopy software. Debra Rees DO [facility] General Surgeon Bladimir
[2024-03-03] MEDS ORDERED: NALOXONE 0.4 MG/ML VIAL IVP PRN (20:48)
[2024-03-03] MEDS ORDERED: MORPHINE 2 MG/ML CARPUJECT IVP PRN (20:48)
[2024-03-03] MEDS ORDERED: ATROPINE ABBOJECT 1 MG/10 ML SYRINGE IVP PRN (20:48)
[2024-03-03] MEDS ORDERED: ePHEDrine 50 MG/ML VIAL IVP PRN (20:48)
[2024-03-03] MEDS ORDERED: HYDROmorphone 0.5 MG/0.5 ML SYRINGE IVP PRN (20:48)
[2024-03-03] MEDS ORDERED: fentaNYL 100 MCG/2 ML VIAL IVP PRN (20:48)
[2024-03-03 20:59] LABS: HCT - HEMATOCRIT 26.2 % (37.0-47.0); HGB - HEMOGLOBIN 8.8 g/dL (12.0-16.0); MEAN CORPUSCULAR HEMOGLOBIN 32.8 pg (27.0-31.0); MEAN CORPUSCULAR HGB CONC 33.6 g/dL (32.0-36.0); MEAN CORPUSCULAR VOLUME 97.8 fL (81.0-99.0); RED BLOOD COUNT 2.68 10^6/uL (4.20-5.40); RED CELL DISTRIBUTION WIDTH 13.8 % (12.0-15.0); WHITE BLOOD COUNT 21.1 x10^3/uL (4.8-10.8)
[2024-03-03] MEDS ORDERED: LACTATED RINGERS 1,000 ML IV SCH (21:00)
--- NOTE | 2024-03-03 21:06 | ANESTHESIA POST OP EVALUATION ---
Anesthesia Post Eval - Post Anesthesia Eval Vitals: Last Vital Signs Temp 36.5 C 03/03/24 20:45 Pulse 74 03/03/24 21:05 Resp 18 03/03/24 21:05 BP 152/82 H 03/03/24 21:05 Pulse Ox 96 03/03/24 21:05 O2 Flow Rate CV Function Including HR & BP: Stable Pain Control: Satisfactory Nausea & Vomiting: Negative Mental Status: Baseline Respiratory Status: Airway Patent Hydration Status: Satisfactory Anesthesia Complications: None
[2024-03-03] MEDS: NICOTINE 14 MG PATCH TOP SCH (21:31)
[2024-03-03] MEDS: LACTATED RINGERS 1,000 ML IV SCH (21:32)
[2024-03-04] MEDS: SODIUM CHLORIDE FLUSH 0.9% 10 ML SYRINGE IVP SCH (00:21)
[2024-03-04] MEDS: PHENOL THROAT SPRAY 177 ML MM PRN (00:50)
[2024-03-04] MEDS: SODIUM CHLORIDE FLUSH 0.9% 10 ML SYRINGE IVP PRN (04:47)
[2024-03-04] MEDS: LORazepam 2 MG/ML VIAL IVP PRN (04:47)
[2024-03-04 05:46] LABS: BASOPHILS # (AUTO) 0.1 10^3/uL (0.0-0.1); BASOPHILS % (AUTO) 0.5 %; EOSINOPHILS # (AUTO) 0.1 10^3/uL (0.0-0.7); EOSINOPHILS % (AUTO) 0.5 %; HCT - HEMATOCRIT 24.9 % (37.0-47.0); HGB - HEMOGLOBIN 8.3 g/dL (12.0-16.0); LYMPHOCYTES # (AUTO) 1.9 10^3/uL (1.5-3.5); LYMPHOCYTES % (AUTO) 13.7 %; MEAN CORPUSCULAR HEMOGLOBIN 33.3 pg (27.0-31.0); MEAN CORPUSCULAR HGB CONC 33.3 g/dL (32.0-36.0); MEAN PLATELET VOLUME 8.9 fL (7.9-10.8); MONOCYTES # (AUTO) 0.7 10^3/uL (0.0-1.0); NEUTROPHILS # (AUTO) 10.8 10^3/uL (1.5-6.6); PLT - PLATELET COUNT 163 10^3/uL (130-450); RED BLOOD COUNT 2.49 10^6/uL (4.20-5.40); RED CELL DISTRIBUTION WIDTH 13.7 % (12.0-15.0); WHITE BLOOD COUNT 13.5 x10^3/uL (4.8-10.8)
[2024-03-04] MEDS ORDERED: PANTOPRAZOLE 40 MG VIAL IVP SCH (07:00)
[2024-03-04] MEDS: PANTOPRAZOLE 40 MG VIAL IVP SCH (07:30)
[2024-03-04] MEDS: CYCLOBENZAPRINE 10 MG TABLET PO PRN (08:57)
[2024-03-04] MEDS: ACETAMINOPHEN 325 MG TABLET PO PRN (08:57)
--- NOTE | 2024-03-04 09:11 | PHARMACY PROGRESS NOTE ---
- Best Possible Medication History Admit Date and Time: 03/03/24 6332 Processed by: Pharmacy Medications reviewed in ED?: No Patient Interview: Completed Secondary Source(s): Pharmacy records, Insurance records As the person ultimately responsible for medication therapy, providers are able to order a medication from an existing home medication list in [facility] via the "Reconcile Routine" prior to Confirmation of that medication by practice support specialist. Such practice is discouraged except when the physician, in their clinical judgment, deems that a medical need exists for a medication without regard to previous use.
[2024-03-04] MEDS: SUCRALFATE 1 GM/10 ML UDC PO SCH (10:40)
--- NOTE | 2024-03-04 10:49 | PROVIDER PROGRESS NOTE ---
Subjective - Prog Note Date Prog Note Date: 03/04/24 - Subjective Pt reports feeling: Improved ( feeling very weak overall. denies nausea and vomiting or any abdominal pain) Objective - Vital Signs/Intake & Output Vital Signs: Vital Signs x48h Temp Pulse Resp BP BP Pulse Ox O2 Flow Rate 03/04/24 08:41 36.5 C 93 18 134/90 H 95 2 03/04/24 04:30 36.7 C 101 H 16 108/73 98 2 Intake & Output: Intake & Output 03/01/24 03/02/24 03/03/24 03/04/24 23:59 23:59 23:59 23:59 Intake Total 233.333 893.75 Output Total 600 Balance 233.333 293.75 - Objective General Appearance: positive: No acute distress Respiratory: positive: Chest non-tender, No respiratory distress Cardiovascular: positive: Regular rate & rhythm Abdomen: positive: Non-tender Skin: positive: Color nml Extremities: positive: Non-tender Neurologic/Psychiatric: positive: Oriented x3 - Lab Results Fish Bones: 03/04/24 05:38 03/03/24 20:55 Other Labs: Lab Results x24hrs 03/04/24 03/03/24 03/03/24 Range/Units 05:38 20:55 20:55 WBC 13.5 H 21.1 H (4.8-10.8) x10^3/uL RBC 2.49 L 2.68 L (4.20-5.40) 10^6/uL Hgb 8.3 L 8.8 L (12.0-16.0) g/dL Hct 24.9 L 26.2 L (37.0-47.0) % MCV 100.0 H 97.8 (81.0-99.0) fL MCH 33.3 H 32.8 H (27.0-31.0) pg MCHC 33.3 33.6 (32.0-36.0) g/dL RDW 13.7 13.8 (12.0-15.0) % Plt Count 163 217 (130-450) 10^3/uL MPV 8.9 9.0 (7.9-10.8) fL Neut # (Auto) 10.8 H (1.5-6.6) 10^3/uL Lymph # (Auto) 1.9 (1.5-3.5) 10^3/uL Frontier # (Auto) 0.7 (0.0-1.0) 10^3/uL Eos # (Auto) 0.1 (0.0-0.7) 10^3/uL Baso # (Auto) 0.1 (0.0-0.1) 10^3/uL Absolute Nucleated RBC 0.00 x10^3/uL Nucleated RBC % 0.0 /100WBC PT (9.9-12.6) secs INR (0.8-1.2) Sodium (135-145) mmol/L Potassium 3.3 L (3.5-4.5) mmol/L Chloride (101-111) mmol/L Carbon Dioxide (21-32) mmol/L Anion Gap (6-13) BUN (6-20) mg/dL Creatinine (0.6-1.3) mg/dL Estimated GFR (MDRD) (>89) Glucose (74-104) mg/dL Lactic Acid (0.5-2.2) mmol/L Calcium (8.5-10.3) mg/dL Total Bilirubin (0.2-1.0) mg/dL AST (10-42) IU/L ALT (10-60) IU/L Alkaline Phosphatase (42-121) IU/L Total Protein (6.4-8.9) g/dL Albumin (3.2-5.5) g/dL Globulin (2.1-4.2) g/dL Albumin/Globulin Ratio (1.0-2.2) Lipase (11-82) U/L Blood Type Blood Type Recheck Antibody Screen 03/03/24 03/03/24 03/03/24 Range/Units 16:39 13:37 12:43 WBC (4.8-10.8) x10^3/uL RBC (4.20-5.40) 10^6/uL Hgb 10.1 L (12.0-16.0) g/dL Hct 29.5 L (37.0-47.0) % MCV (81.0-99.0) fL MCH (27.0-31.0) pg MCHC (32.0-36.0) g/dL RDW (12.0-15.0) % Plt Count (130-450) 10^3/uL MPV (7.9-10.8) fL Neut # (Auto) (1.5-6.6) 10^3/uL Lymph # (Auto) (1.5-3.5) 10^3/uL Frontier # (Auto) (0.0-1.0) 10^3/uL Eos # (Auto) (0.0-0.7) 10^3/uL Baso # (Auto) (0.0-0.1) 10^3/uL Absolute Nucleated RBC x10^3/uL Nucleated RBC % /100WBC PT (9.9-12.6) secs INR (0.8-1.2) Sodium (135-145) mmol/L Potassium (3.5-4.5) mmol/L Chloride (101-111) mmol/L Carbon Dioxide (21-32) mmol/L Anion Gap (6-13) BUN (6-20) mg/dL Creatinine (0.6-1.3) mg/dL Estimated GFR (MDRD) (>89) Glucose (74-104) mg/dL Lactic Acid (0.5-2.2) mmol/L Calcium (8.5-10.3) mg/dL Total Bilirubin (0.2-1.0) mg/dL AST (10-42) IU/L ALT (10-60) IU/L Alkaline Phosphatase (42-121) IU/L Total Protein (6.4-8.9) g/dL Albumin (3.2-5.5) g/dL Globulin (2.1-4.2) g/dL Albumin/Globulin Ratio (1.0-2.2) Lipase (11-82) U/L Blood Type O NEGATIVE Blood Type Recheck O NEGATIVE Antibody Screen NEGATIVE 03/03/24 03/03/24 03/03/24 Range/Units 12:43 12:43 12:43 WBC (4.8-10.8) x10^3/uL RBC (4.20-5.40) 10^6/uL Hgb (12.0-16.0) g/dL Hct (37.0-47.0) % MCV (81.0-99.0) fL MCH (27.0-31.0) pg MCHC (32.0-36.0) g/dL RDW (12.0-15.0) % Plt Count (130-450) 10^3/uL MPV (7.9-10.8) fL Neut # (Auto) (1.5-6.6) 10^3/uL Lymph # (Auto) (1.5-3.5) 10^3/uL Frontier # (Auto) (0.0-1.0) 10^3/uL Eos # (Auto) (0.0-0.7) 10^3/uL Baso # (Auto) (0.0-0.1) 10^3/uL Absolute Nucleated RBC x10^3/uL Nucleated RBC % /100WBC PT 13.5 H (9.9-12.6) secs INR 1.3 H (0.8-1.2) Sodium 140 (135-145) mmol/L Potassium 2.9 L (3.5-4.5) mmol/L Chloride 103 (101-111) mmol/L Carbon Dioxide 27 (21-32) mmol/L Anion Gap 10.0 (6-13) BUN 45 H (6-20) mg/dL Creatinine 0.4 L (0.6-1.3) mg/dL Estimated GFR (MDRD) 160 (>89) Glucose 105 H (74-104) mg/dL Lactic Acid 1.2 (0.5-2.2) mmol/L Calcium 9.3 (8.5-10.3) mg/dL Total Bilirubin 0.5 (0.2-1.0) mg/dL AST 11 (10-42) IU/L ALT 8 L (10-60) IU/L Alkaline Phosphatase 57 (42-121) IU/L Total Protein 5.7 L (6.4-8.9) g/dL Albumin 3.7 (3.2-5.5) g/dL Globulin 2.0 L (2.1-4.2) g/dL Albumin/Globulin Ratio 1.9 (1.0-2.2) Lipase < 10 L (11-82) U/L Blood Type Blood Type Recheck Antibody Screen 03/03/24 Range/Units 12:43 WBC 17.2 H (4.8-10.8) x10^3/uL RBC 3.23 L (4.20-5.40) 10^6/uL Hgb 10.7 L (12.0-16.0) g/dL Hct 30.8 L (37.0-47.0) % MCV 95.4 (81.0-99.0) fL MCH 33.1 H (27.0-31.0) pg MCHC 34.7 (32.0-36.0) g/dL RDW 13.5 (12.0-15.0) % Plt Count 246 (130-450) 10^3/uL MPV 8.9 (7.9-10.8) fL Neut # (Auto) 15.1 H (1.5-6.6) 10^3/uL Lymph # (Auto) 1.4 L (1.5-3.5) 10^3/uL Frontier # (Auto) 0.5 (0.0-1.0) 10^3/uL Eos # (Auto) 0.0 (0.0-0.7) 10^3/uL Baso # (Auto) 0.1 (0.0-0.1) 10^3/uL Absolute Nucleated RBC 0.00 x10^3/uL Nucleated RBC % 0.0 /100WBC PT (9.9-12.6) secs INR (0.8-1.2) Sodium (135-145) mmol/L Potassium (3.5-4.5) mmol/L Chloride (101-111) mmol/L Carbon Dioxide (21-32) mmol/L Anion Gap (6-13) BUN (6-20) mg/dL Creatinine (0.6-1.3) mg/dL Estimated GFR (MDRD) (>89) Glucose (74-104) mg/dL Lactic Acid (0.5-2.2) mmol/L Calcium (8.5-10.3) mg/dL Total Bilirubin (0.2-1.0) mg/dL AST (10-42) IU/L ALT (10-60) IU/L Alkaline Phosphatase (42-121) IU/L Total Protein (6.4-8.9) g/dL Albumin (3.2-5.5) g/dL Globulin (2.1-4.2) g/dL Albumin/Globulin Ratio (1.0-2.2) Lipase (11-82) U/L Blood Type Blood Type Recheck Antibody Screen Sepsis Event Note (H) - Evaluation Current Stage of Sepsis: Ruled out Assessment/Plan - Problem List (1) Acute blood loss anemia Impression: EGD yesterday showing large volume of blood in gastric lumen. 3 sites of bleeding were identified and hemostasis was achieved PPI twice daily Carafate Encourage absolutely no NSAID or aspirin use Likely home in a.m. (2) Gastrointestinal hemorrhage with melena Impression: continues to be stable Recheck hemoglobin this afternoon and again in the morning (3) Generalized anxiety disorder Impression: continue current Ativan regimen (4) Tobacco abuse Impression: continue nicotine patch
--- NOTE | 2024-03-04 11:04 | PROVIDER PROGRESS NOTE ---
Subjective - General Admit Date: 03/03/24 Procedure Date: 03/03/24 Post Op Days: 1 Procedure Performed: EGD with biopsy and hemorrhage control - Other Other Information/Narrative: EGD yesterday evening with two actively bleeding gastric ulcers (Ashwin's and pre-pyloric), as well as hemorrhagic duodenitis. Bleeding at both ulcers controlled with epinephrine and cautery. Post-procedural Hgb 8.8 and this AM stable at 8.3. Epigastic pain is improved this AM, no nausea, is hungry. Tachycardia has resolved, no hypotension. Objective - Patient Data Reviewed Vital Signs: Yes Vital Signs: Vital Signs x48h Temp Pulse Resp BP BP Pulse Ox O2 Flow Rate 03/04/24 08:41 36.5 C 93 18 134/90 H 95 2 03/04/24 04:30 36.7 C 101 H 16 108/73 98 2 Weight: Weight 03/02/24 03/03/24 03/04/24 23:59 23:59 23:59 Weight (kg) 56 kg Intake & Output: Intake and Output Totals x24h 03/02/24 03/03/24 03/04/24 23:59 23:59 23:59 Intake Total 233.333 893.75 Output Total 600 Balance 233.333 293.75 - Lab Results Lab Results: 03/04/24 05:38 03/03/24 20:55 Other Lab Results: Lab Results x24hrs 03/04/24 03/03/24 03/03/24 Range/Units 05:38 20:55 20:55 WBC 13.5 H 21.1 H (4.8-10.8) x10^3/uL RBC 2.49 L 2.68 L (4.20-5.40) 10^6/uL Hgb 8.3 L 8.8 L (12.0-16.0) g/dL Hct 24.9 L 26.2 L (37.0-47.0) % MCV 100.0 H 97.8 (81.0-99.0) fL MCH 33.3 H 32.8 H (27.0-31.0) pg MCHC 33.3 33.6 (32.0-36.0) g/dL RDW 13.7 13.8 (12.0-15.0) % Plt Count 163 217 (130-450) 10^3/uL MPV 8.9 9.0 (7.9-10.8) fL Neut # (Auto) 10.8 H (1.5-6.6) 10^3/uL Lymph # (Auto) 1.9 (1.5-3.5) 10^3/uL [place] # (Auto) 0.7 (0.0-1.0) 10^3/uL Eos # (Auto) 0.1 (0.0-0.7) 10^3/uL Baso # (Auto) 0.1 (0.0-0.1) 10^3/uL Absolute Nucleated RBC 0.00 x10^3/uL Nucleated RBC % 0.0 /100WBC PT (9.9-12.6) secs INR (0.8-1.2) Sodium (135-145) mmol/L Potassium 3.3 L (3.5-4.5) mmol/L Chloride (101-111) mmol/L Carbon Dioxide (21-32) mmol/L Anion Gap (6-13) BUN (6-20) mg/dL Creatinine (0.6-1.3) mg/dL Estimated GFR (MDRD) (>89) Glucose (74-104) mg/dL Lactic Acid (0.5-2.2) mmol/L Calcium (8.5-10.3) mg/dL Total Bilirubin (0.2-1.0) mg/dL AST (10-42) IU/L ALT (10-60) IU/L Alkaline Phosphatase (42-121) IU/L Total Protein (6.4-8.9) g/dL Albumin (3.2-5.5) g/dL Globulin (2.1-4.2) g/dL Albumin/Globulin Ratio (1.0-2.2) Lipase (11-82) U/L Blood Type Blood Type Recheck Antibody Screen 03/03/24 03/03/24 03/03/24 Range/Units 16:39 13:37 12:43 WBC (4.8-10.8) x10^3/uL RBC (4.20-5.40) 10^6/uL Hgb 10.1 L (12.0-16.0) g/dL Hct 29.5 L (37.0-47.0) % MCV (81.0-99.0) fL MCH (27.0-31.0) pg MCHC (32.0-36.0) g/dL RDW (12.0-15.0) % Plt Count (130-450) 10^3/uL MPV (7.9-10.8) fL Neut # (Auto) (1.5-6.6) 10^3/uL Lymph # (Auto) (1.5-3.5) 10^3/uL [place] # (Auto) (0.0-1.0) 10^3/uL Eos # (Auto) (0.0-0.7) 10^3/uL Baso # (Auto) (0.0-0.1) 10^3/uL Absolute Nucleated RBC x10^3/uL Nucleated RBC % /100WBC PT (9.9-12.6) secs INR (0.8-1.2) Sodium (135-145) mmol/L Potassium (3.5-4.5) mmol/L Chloride (101-111) mmol/L Carbon Dioxide (21-32) mmol/L Anion Gap (6-13) BUN (6-20) mg/dL Creatinine (0.6-1.3) mg/dL Estimated GFR (MDRD) (>89) Glucose (74-104) mg/dL Lactic Acid (0.5-2.2) mmol/L Calcium (8.5-10.3) mg/dL Total Bilirubin (0.2-1.0) mg/dL AST (10-42) IU/L ALT (10-60) IU/L Alkaline Phosphatase (42-121) IU/L Total Protein (6.4-8.9) g/dL Albumin (3.2-5.5) g/dL Globulin (2.1-4.2) g/dL Albumin/Globulin Ratio (1.0-2.2) Lipase (11-82) U/L Blood Type O NEGATIVE Blood Type Recheck O NEGATIVE Antibody Screen NEGATIVE 03/03/24 03/03/24 03/03/24 Range/Units 12:43 12:43 12:43 WBC (4.8-10.8) x10^3/uL RBC (4.20-5.40) 10^6/uL Hgb (12.0-16.0) g/dL Hct (37.0-47.0) % MCV (81.0-99.0) fL MCH (27.0-31.0) pg MCHC (32.0-36.0) g/dL RDW (12.0-15.0) % Plt Count (130-450) 10^3/uL MPV (7.9-10.8) fL Neut # (Auto) (1.5-6.6) 10^3/uL Lymph # (Auto) (1.5-3.5) 10^3/uL [place] # (Auto) (0.0-1.0) 10^3/uL Eos # (Auto) (0.0-0.7) 10^3/uL Baso # (Auto) (0.0-0.1) 10^3/uL Absolute Nucleated RBC x10^3/uL Nucleated RBC % /100WBC PT 13.5 H (9.9-12.6) secs INR 1.3 H (0.8-1.2) Sodium 140 (135-145) mmol/L Potassium 2.9 L (3.5-4.5) mmol/L Chloride 103 (101-111) mmol/L Carbon Dioxide 27 (21-32) mmol/L Anion Gap 10.0 (6-13) BUN 45 H (6-20) mg/dL Creatinine 0.4 L (0.6-1.3) mg/dL Estimated GFR (MDRD) 160 (>89) Glucose 105 H (74-104) mg/dL Lactic Acid 1.2 (0.5-2.2) mmol/L Calcium 9.3 (8.5-10.3) mg/dL Total Bilirubin 0.5 (0.2-1.0) mg/dL AST 11 (10-42) IU/L ALT 8 L (10-60) IU/L Alkaline Phosphatase 57 (42-121) IU/L Total Protein 5.7 L (6.4-8.9) g/dL Albumin 3.7 (3.2-5.5) g/dL Globulin 2.0 L (2.1-4.2) g/dL Albumin/Globulin Ratio 1.9 (1.0-2.2) Lipase < 10 L (11-82) U/L Blood Type Blood Type Recheck Antibody Screen 03/03/24 Range/Units 12:43 WBC 17.2 H (4.8-10.8) x10^3/uL RBC 3.23 L (4.20-5.40) 10^6/uL Hgb 10.7 L (12.0-16.0) g/dL Hct 30.8 L (37.0-47.0) % MCV 95.4 (81.0-99.0) fL MCH 33.1 H (27.0-31.0) pg MCHC 34.7 (32.0-36.0) g/dL RDW 13.5 (12.0-15.0) % Plt Count 246 (130-450) 10^3/uL MPV 8.9 (7.9-10.8) fL Neut # (Auto) 15.1 H (1.5-6.6) 10^3/uL Lymph # (Auto) 1.4 L (1.5-3.5) 10^3/uL [place] # (Auto) 0.5 (0.0-1.0) 10^3/uL Eos # (Auto) 0.0 (0.0-0.7) 10^3/uL Baso # (Auto) 0.1 (0.0-0.1) 10^3/uL Absolute Nucleated RBC 0.00 x10^3/uL Nucleated RBC % 0.0 /100WBC PT (9.9-12.6) secs INR (0.8-1.2) Sodium (135-145) mmol/L Potassium (3.5-4.5) mmol/L Chloride (101-111) mmol/L Carbon Dioxide (21-32) mmol/L Anion Gap (6-13) BUN (6-20) mg/dL Creatinine (0.6-1.3) mg/dL Estimated GFR (MDRD) (>89) Glucose (74-104) mg/dL Lactic Acid (0.5-2.2) mmol/L Calcium (8.5-10.3) mg/dL Total Bilirubin (0.2-1.0) mg/dL AST (10-42) IU/L ALT (10-60) IU/L Alkaline Phosphatase (42-121) IU/L Total Protein (6.4-8.9) g/dL Albumin (3.2-5.5) g/dL Globulin (2.1-4.2) g/dL Albumin/Globulin Ratio (1.0-2.2) Lipase (11-82) U/L Blood Type Blood Type Recheck Antibody Screen - Current Medications Current Medications: Current Medications Generic Name Dose Route Start Last Admin Trade Name Freq PRN Reason Stop Dose Admin Acetaminophen 650 mg 03/04/24 08:41 03/04/24 08:57 Acetaminophen 325 Mg Tablet PO 650 mg Q4HR PRN Administration Pain or Fever > 38C (100.4F) Cyclobenzaprine HCl 10 mg 03/04/24 08:41 03/04/24 08:57 Cyclobenzaprine 10 Mg Tablet PO 10 mg TID PRN Administration Spasms Lactated Ringer's 1,000 mls @ 125 mls/hr 03/03/24 21:00 03/04/24 04:57 Lr IV 125 mls/hr .Q8H ESTER Administration Nicotine 1 patch 03/03/24 18:37 03/04/24 08:50 Nicotine 14 Mg Patch TOP Not Given DAILY ESTER Pantoprazole Sodium 40 mg 03/04/24 07:00 03/04/24 07:30 Pantoprazole 40 Mg Vial IVP 40 mg BIDAC ESTER Administration Phenol/Menthol 2 sprays 03/04/24 00:30 03/04/24 08:58 Phenol Throat [place] 177 Ml MM 2 sprays Q2HR PRN Administration Throat Pain Sodium Chloride 10 ml 03/03/24 17:51 03/04/24 04:47 Sodium Chloride Flush 0.9% 10 Ml Syringe IVP 10 ml PRN PRN Administration NEEDED PER PROVIDER ORDERS Sodium Chloride 10 ml 03/04/24 01:00 03/04/24 07:30 Sodium Chloride Flush 0.9% 10 Ml Syringe IVP 10 ml 0100,0900,1700 ESTER Administration Sucralfate 1 gm 03/04/24 11:00 03/04/24 10:40 Sucralfate 1 Gm/10 Ml Udc PO 1 gm 0700,1100,1600,2200 ESTER Administration - Physical Exam General Appearance: positive: No acute distress, Alert Respiratory: positive: Chest non-tender, No respiratory distress, Breath sounds nml Cardiovascular: positive: Regular rate & rhythm Abdomen: positive: No distention, Tenderness (very mild epigastric ttp) Neurologic/Psychiatric: positive: Oriented x3 Impression/Plan - Problem List Problem List: 68yoF admitted with UGIB 2/2 Ashwin's ulcer, prepyloric ulcer, and hemorrhagic duodenitis, now HD stable s/p EGD on 03/03. Suspect 2/2 heavy NSAID use. - continue BID protonix - sucralfate - OK for clears this AM - repeat Hgb after lunch, if stable can ADAT to regular - DC tomorrow if remains stable and tolerating regular diet DC plan: - BID protonix & sucralfate - avoid NSAIDS and etoh - f/u with me in 1mo (f/u on biopsy results, plan to repeat EGD to eval healing of ulcers) - f/u with PCM Debra Rees DO, FACS General Surgeon, [place]
--- NOTE | 2024-03-04 11:08 | PHARMACY PROGRESS NOTE ---
- Best Possible Medication History Admit Date and Time: 03/03/24 4376 Processed by: Pharmacy Medication History completed: Yes Patient Interview: Completed Secondary Source(s): Pharmacy records, Insurance records As the person ultimately responsible for medication therapy, providers are able to order a medication from an existing home medication list in [facility] via the "Reconcile Routine" prior to Confirmation of that medication by support services rep. Such practice is discouraged except when the physician, in their clinical judgment, deems that a medical need exists for a medication without regard to previous use.
[2024-03-04] MEDS: LORazepam 0.5 MG TABLET PO PRN (12:22)
[2024-03-04 14:13] LABS: HCT - HEMATOCRIT 23.3 % (37.0-47.0); HGB - HEMOGLOBIN 7.7 g/dL (12.0-16.0)
[2024-03-04] MEDS: hydrOXYzine PAMOATE 25 MG CAPSULE PO PRN (18:50)
[2024-03-05 06:42] LABS: BASOPHILS % (AUTO) 0.5 %; EOSINOPHILS # (AUTO) 0.1 10^3/uL (0.0-0.7); EOSINOPHILS % (AUTO) 1.2 %; HCT - HEMATOCRIT 23.1 % (37.0-47.0); HGB - HEMOGLOBIN 7.4 g/dL (12.0-16.0); LYMPHOCYTES # (AUTO) 1.2 10^3/uL (1.5-3.5); LYMPHOCYTES % (AUTO) 14.9 %; MEAN CORPUSCULAR HEMOGLOBIN 31.8 pg (27.0-31.0); MEAN CORPUSCULAR VOLUME 99.1 fL (81.0-99.0); MEAN PLATELET VOLUME 8.8 fL (7.9-10.8); MONOCYTES # (AUTO) 0.4 10^3/uL (0.0-1.0); MONOCYTES % (AUTO) 5.1 %; NEUTROPHILS # (AUTO) 6.4 10^3/uL (1.5-6.6); NEUTROPHILS % (AUTO) 77.8 %; PLT - PLATELET COUNT 175 10^3/uL (130-450); RED BLOOD COUNT 2.33 10^6/uL (4.20-5.40); RED CELL DISTRIBUTION WIDTH 13.8 % (12.0-15.0); WHITE BLOOD COUNT 8.2 x10^3/uL (4.8-10.8)
[2024-03-05 07:01] LABS: CALCIUM 8.7 mg/dL (8.5-10.3); CREATININE 0.3 mg/dL (0.6-1.3)
[2024-03-05] MEDS: POTASSIUM CHLORIDE 20 MEQ TABLET PO ONE (08:14)
--- NOTE | 2024-03-05 11:25 | Discharge Summary ---
Discharge Plan Problem Reviewed?: Yes Disposition: Home, Self Care Condition: Fair Prescriptions: Sucralfate [Carafate] 1 gm PO 0700,1100,1600,2200 60 Days #240 ea Cyclobenzaprine [Flexeril] 10 mg PO TID PRN 30 Days #90 tab PRN Reason: Spasms Pantoprazole [Protonix] 40 mg PO BID 60 Days #120 tablet Diet: Regular Activity Restrictions: No Restrictions Instruction Topics: Sucralfate tablets, Bleeding Gastrointestinal, Anemia, Gastric Ulcer Health Concerns: you are a 68-year-old female who presented by ambulance to the ER with complaints of abdominal pain and dark-colored diarrhea. You were found to have a upper GI bleed, and underwent an EGD/upper endoscopy which was able to stop the bleeding Plan of Treatment: I would like for you to make sure you are getting plenty to eat and drink. I would like you to attempt stretching/yoga to help with your overall stiffness. I have ordered a muscle relaxer to help with your stiffness/muscle pain. I would encourage that you not take aspirin, Motrin, Aleve, or any other NSAID, and notify any provider prescribing such to you that you have history of upper GI bleeding Care Goals: I would like you to get stronger with diet and exercise, and avoid nonsteroidal anti-inflammatories and aspirin so that you can avoid any repeat bleeding. Please take your Protonix and Carafate that I have ordered for you to help protect your stomach Follow-up with general surgery in 1 month No Smoking: If you smoke, Please STOP! Call for help. Follow-up with: Monik Mena ARNP [Primary Care Provider] -
--- NOTE | 2024-03-05 11:44 | DISCHARGE SUMMARY ---
"Discharge Summary Admit Date: 03/03/24 Discharge Date: 03/05/24 Discharging Provider: Carroll Joy NP Primary Care Provider: Monik Mena Code Status: Attempt Resuscitation Condition at Discharge: Fair Discharge Disposition: 01 Home, Self Care - DIAGNOSES Admission Diagnoses: Melena Acute blood loss anemia Generalized anxiety disorder Tobacco abuse Discharge Diagnoses with Status of Each Condition: Acute blood loss anemia Gastrointestinal hemorrhage Generalized anxiety disorder Tobacco abuse - HPI History of Present Illness: 68-year-old female who presented with abdominal pain and melena x 3 days secondary to aspirin/Aleve use. She was evaluated by general surgery and under went EGD on and found to have hemorrhagic duodenitis, bleeding prepyloric ulcer, bleeding Ashwin's ulcer. Hemostasis was achieved during procedure and she was held in observation to trend her hemoglobin - CONSULTS | PROCEDURES Consultations: General Surgery Procedures: EGD - HOSPITAL COURSE Hospital Course: she was placed in observation and underwent EGD on 03/03/2024 for resolution of bleeding ulcer/duodenitis. After surgery, hemoglobins were trended to ensure there was stable postprocedure - ALLERGIES Allergies/Adverse Reactions: Allergies Allergy/AdvReac Type Severity Reaction Status Date / Time No Known Drug Allergies Allergy Verified 03/03/24 12:03 - MEDICATIONS Home Medications: Ambulatory Orders Medication Instructions Recorded Confirmed hydroCHLOROthiazide 25 mg PO DAILY 05/15/13 03/04/24 [Hydrochlorothiazide] lisinopriL [Lisinopril] 40 mg PO DAILY 05/15/13 03/04/24 LORazepam [Ativan] 0.5 mg PO BID PRN 03/04/24 03/04/24 Venlafaxine HCl [Effexor Xr] 150 mg PO DAILY 03/04/24 03/04/24 amLODIPine [Norvasc] 5 mg PO BID 03/04/24 03/04/24 Cyclobenzaprine [Flexeril] 10 mg PO TID PRN 30 Days #90 tab 03/05/24 Pantoprazole [Protonix] 40 mg PO BID 60 Days #120 tablet 03/05/24 Sucralfate [Carafate] 1 gm PO 0700,1100,1600,2200 60 03/05/24 Days #240 ea - PHYSICAL EXAM AT DISCHARGE General Appearance: positive: No acute distress Respiratory: positive: Chest non-tender, No respiratory distress Cardiovascular: positive: Regular rate & rhythm, No murmur Abdomen: positive: Non-tender Skin: positive: Color nml Extremities: positive: Non-tender Neurologic/Psychiatric: positive: Oriented x3 - LABS Result Diagrams: 03/05/24 06:21 03/05/24 06:21 - DIAGNOSTIC IMAGING Diagnostic Imaging Results: Final report reviewed Diagnostic Imaging Results Comments: CT abdomen - SEPSIS Current Stage of Sepsis: Ruled out - QUALITY (Female Hip Fx Only) Was patient sent home on osteoporosis medication?: No - FOLLOW UP Follow Up: follow-up with general surgery/Dr. Richardson talk in 1 month Follow-up with PCP, Monik Mena - TIME SPENT Time Spent in Discharge (Minutes): 25"
[2024-03-05 13:14] VITALS: BP 151/85; O2SAT 92
--- NOTE | 2024-03-05 18:51 | PROVIDER PROGRESS NOTE ---
Subjective - General Admit Date: 03/03/24 Procedure Date: 03/03/24 Post Op Days: 2 Procedure Performed: EGD with biopsy and hemorrhage control - Other Other Information/Narrative: Tolerating regular diet, minimal epigastric pain, feeling much improved from when came to ED. black stool diarrhea is slowing down. GERARDO. Objective - Patient Data Reviewed Vital Signs: Yes Vital Signs: Vital Signs x48h Temp Pulse Resp BP Pulse Ox 03/05/24 13:00 36.8 C 102 H 18 151/85 H 92 Weight: Weight 03/03/24 03/04/24 03/05/24 23:59 23:59 23:59 Weight (kg) 56 kg Intake & Output: Intake and Output Totals x24h 03/03/24 03/04/24 03/05/24 23:59 23:59 23:59 Intake Total 015.880 7003.500 3756.667 Output Total 2300 1600 Balance 005.728 9432.500 2156.667 - Lab Results Lab Results: 03/05/24 06:21 03/05/24 06:21 Other Lab Results: Lab Results x24hrs 03/05/24 03/05/24 Range/Units 06:21 06:21 WBC 8.2 (4.8-10.8) x10^3/uL RBC 2.33 L (4.20-5.40) 10^6/uL Hgb 7.4 L (12.0-16.0) g/dL Hct 23.1 L (37.0-47.0) % MCV 99.1 H (81.0-99.0) fL MCH 31.8 H (27.0-31.0) pg MCHC 32.0 (32.0-36.0) g/dL RDW 13.8 (12.0-15.0) % Plt Count 175 (130-450) 10^3/uL MPV 8.8 (7.9-10.8) fL Neut # (Auto) 6.4 (1.5-6.6) 10^3/uL Lymph # (Auto) 1.2 L (1.5-3.5) 10^3/uL [place] # (Auto) 0.4 (0.0-1.0) 10^3/uL Eos # (Auto) 0.1 (0.0-0.7) 10^3/uL Baso # (Auto) 0.0 (0.0-0.1) 10^3/uL Absolute Nucleated RBC 0.00 x10^3/uL Nucleated RBC % 0.0 /100WBC Sodium 140 (135-145) mmol/L Potassium 3.0 L (3.5-4.5) mmol/L Chloride 107 (101-111) mmol/L Carbon Dioxide 27 (21-32) mmol/L Anion Gap 6.0 (6-13) BUN 5 L (6-20) mg/dL Creatinine 0.3 L (0.6-1.3) mg/dL Estimated GFR (MDRD) 223 (>89) Glucose 91 (74-104) mg/dL Calcium 8.7 (8.5-10.3) mg/dL - Physical Exam General Appearance: positive: No acute distress, Alert Respiratory: positive: Chest non-tender, No respiratory distress, Breath sounds nml Cardiovascular: positive: Regular rate & rhythm Abdomen: positive: Non-tender, No distention Neurologic/Psychiatric: positive: Oriented x3 Impression/Plan - Problem List Problem List: 68yoF admitted with UGIB 2/2 Ashwin's ulcer, prepyloric ulcer, and hemorrhagic duodenitis, now HD stable s/p EGD on 03/03. Suspect 2/2 heavy NSAID use. Hgb with slight downdrift over last 24hrs to 7.4, however given resolved tachycardia, tolerating regular diet, and tapering of melena, suspect this is residual equilibration of her acute blood loss at time of EGD. - stable for DC from surgical standpoint - DC with BID protonix & sucralfate - avoid NSAIDS and etoh - f/u with me in 1mo (f/u on biopsy results, plan to repeat EGD to eval healing of ulcers) - f/u with PCM Plan of care discussed with hospitalist team at 0930 this AM. Debra Rees DO, FACS General Surgeon, [place]
== END 2024-03-05 13:50 | disposition home or self-care (01) ==
LOC: EDUNIT# → ED 11:45 → SDS 17:48 → MS2 17:51
PROVIDERS: ADMIT Specialist; ATTEND Specialist

== ENCOUNTER 2024-06-27 08:44 | Inpatient (IN) ==
--- NOTE | 2024-06-27 09:01 | ED Physician Documentation ---
History of Present Illness Stated complaint Stated Complaint: SOA Chief complaint Chief Complaint: Resp History obtained from History obtained from: Patient and EMS Additonal information Additional information: The patient comes to the emergency department chief complaint of shortness of breath and cough. The patient states she has had a cough for the last couple of days with production of yellow sputum. She is a smoker about a pack a day from a young age, though she does states she quit here and there when she was . The patient denies any official diagnosis of asthma or COPD. She does not have any cardiac issues that she knows of. She denies any swelling in her lower extremities. She has not had any fevers. The patient states she just developed increased shortness of breath this morning. She does not use oxygen at home. No other complaints at this time. Medics state they gave the patient a DuoNeb and 125 mg of Solu-Medrol and route. Her oxygen has improved from 82% on room air when they picked her up to 91% now. Meds/Allgy Home Medications Ambulatory Orders Medication Instructions Recorded Confirmed lorazepam 0.5 mg tablet 0.5 mg PO BID PRN Anxiety #32 tabs 04/27/24 06/27/24 lisinopril 40 mg tablet See Rx Instructions .Route 05/12/24 06/27/24 .COMPLEX #28 tabs amlodipine 5 mg tablet 2.5 mg PO DAILY 06/27/24 06/27/24 hydrochlorothiazide 25 mg tablet 25 mg PO DAILY 06/27/24 06/27/24 venlafaxine 150 mg 150 mg PO DAILY 06/27/24 06/27/24 capsule,extended release 24 hr Allergies Allergies Allergy/AdvReac Type Severity Reaction Status Date / Time No Known Drug Allergies Allergy Verified 06/27/24 09:02 [facility] Medical History Medical History (Updated 06/27/24 @ 15:06 by Kiet Carrasco DO) Ashwin ulcer Gastric ulcer Breast implant leak Surgical History Surgical History (Updated 05/15/24 @ 20:44 by BRANT Townsend) Abnormal findings on esophagogastroduodenoscopy (EGD) Upper GI bleed, 03/03/2024, Dr. Rees Social History Social History (Updated 04/11/24 @ 16:56 by Mariella Franco) Smoking Status: Current every day smoker Number of Years Smoked: 30 How many cigarettes a day do you smoke? (20 cigarettes=1 Pk): 20 Second hand tobacco smoke exposure: No Do you dip or chew tobacco?: No Do you vape?: No Patient requests smoking cessation consult: No Initiate information on smoking cessation: No Living arrangement: At home Living Condition: With friend(s) and Other Relationship: Level: Independent Do you feel safe in your home environment?: Yes Suffered physical, verbal, emotional, or financial abuse?: No History of Abuse: No ETOH Use: None Substance Use: denies use Are you sexually active?: No Retired: Yes Service: No POLST Patient has POLST: No Exam Constitutional normal general appearance Mild respiratory distress. HENMT normocephalic, head/scalp atraumatic, external nose normal and oral mucous membranes normal Eyes EOMs intact bilaterally Neck/C-Spine visual inspection normal and supple Respiratory breath sounds equal bilaterally Moderately decreased air movement, wheezing throughout bilateral lung ritter. Patient is sitting upright, speaks in full sentences but after a few sentences has to stop to take of breath. Mildly labored respirations. Cardiovascular regular rhythm noted and no edema Mild tachycardia, regular rhythm. Gastrointestinal abdomen normal to inspection, abdomen soft to palpation, nontender to palpation and nondistended Genitourinary no CVA tenderness Extremities normal to inspection Neurology Alert, grossly intact Psychiatry mental status grossly normal Skin skin color normal Results Vitals Vitals: Vital Signs - 24 hr 06/27/24 08:50 06/27/24 09:05 06/27/24 09:06 Temperature 36.6 C Temperature Source Temporal Artery Scan Pulse Rate 113 H Respiratory Rate 17 22 Blood Pressure 175/124 H O2 Saturation 91 L 88 L Oxygen Delivery Method Nasal Cannula O2 Source Nasal cannula Room air Oxygen Flow Rate 2 If not protocol: Oxygen Flow, liters/minute 2 Pain Intensity 0 06/27/24 09:07 06/27/24 09:07 06/27/24 10:40 Temperature Temperature Source Pulse Rate 99 97 95 Respiratory Rate 22 26 H 22 Blood Pressure 155/98 H O2 Saturation 99 Oxygen Delivery Method O2 Source Nasal cannula Oxygen Flow Rate If not protocol: Oxygen Flow, liters/minute 2 Pain Intensity 0 06/27/24 10:54 Temperature Temperature Source Pulse Rate 107 H Respiratory Rate 22 Blood Pressure 155/98 H O2 Saturation 93 Oxygen Delivery Method O2 Source Nasal cannula Oxygen Flow Rate If not protocol: Oxygen Flow, liters/minute 2 Pain Intensity 0 Oxygen O2 Source Nasal cannula Oxygen Flow Rate 2 Labs Labs: Microbiology 06/27/24 09:15 Respiratory Culture - Preliminary Sputum Aspirate Laboratory Tests 06/27/24 06/27/24 06/27/24 08:55 08:57 09:09 WBC 10.3 RBC 5.19 Hgb 13.8 Hct 43.6 MCV 84.0 MCH 26.6 L MCHC 31.7 L RDW 18.0 H Plt Count 228 MPV 9.0 Neut # (Auto) 7.7 H Lymph # (Auto) 1.7 [place] # (Auto) 0.8 Eos # (Auto) 0.1 Baso # (Auto) 0.1 Absolute Nucleated RBC 0.00 Nucleated RBC % 0.0 Bld Gas Analysis Time 0906 Sample Site RIGHT RADIAL ABG pH 7.45 ABG pCO2 47 H ABG pO2 58 L ABG HCO3 33.1 H ABG Total CO2 34.6 H ABG O2 Saturation 91 L ABG Base Excess 8.9 H Javier Test POSITIVE O2 Delivery Device NO DEVICE/ROOM AIR Sodium 134 L Potassium 2.9 L Chloride 94 L Carbon Dioxide 32 Anion Gap 8.0 BUN 11 Creatinine 0.5 L Estimated GFR (MDRD) 123 Glucose 148 H Calcium 9.3 Total Bilirubin 0.3 AST 45 H ALT 21 Alkaline Phosphatase 105 B-Natriuretic Peptide 250 H Total Protein 6.7 Albumin 4.3 Globulin 2.4 Albumin/Globulin Ratio 1.8 Lipase < 10 L Nasal Adenovirus (PCR) NOT DETECTED Nasal B. parapertussis DNA (PCR) NOT DETECTED Nasal Coronavir 229E PCR NOT DETECTED Nasal Coronavir HKU1 PCR NOT DETECTED Nasal Coronavir NL63 PCR NOT DETECTED Nasal Coronavir OC43 PCR DETECTED A Nasal Enterovir/Rhinovir PCR NOT DETECTED Nasal Influenza B PCR NOT DETECTED Nasal Influenza A PCR NOT DETECTED Nasal Parainfluen 1 PCR NOT DETECTED Nasal Parainfluen 2 PCR NOT DETECTED Nasal Parainfluen 3 PCR NOT DETECTED Nasal Parainfluen 4 PCR NOT DETECTED Nasal RSV (PCR) NOT DETECTED Nasal B.pertussis DNA PCR NOT DETECTED Nasal C.pneumoniae (PCR) NOT DETECTED Luis Human Metapneumo PCR NOT DETECTED Nasal M.pneumoniae (PCR) NOT DETECTED Nasal SARS-CoV-2 (PCR) NOT DETECTED Rads (name of study) chest XR: Relevant Findings:: Final report received and See rad report (mild pulm edema, o/w neg) PD Medical Decision Making ED course Complexity details: reviewed results, re-evaluated patient, considered differ ential and d/w patient ED course: The patient was evaluated in the emergency department immediately upon arrival, by myself and the rest of the care team. Respiratory therapy was also on hand. The patient was immediately started on an albuterol nebulizer treatment and ABG obtained. I also ordered chest x-ray and basic labs. CXR was unremarkable. Pt was improved, but still hypoxic and wheezing after 2 albuterol nebs, and requiring supplemental O2. Given her productive cough, status as a smoker, and likely undiagnosed COPD, I did order antibiotics for the pt. I discussed the case with Dr. Carrasco, who was air conditioning mechanic industrial for hospitalist service. He did accept the pt for admission. Critical Care Time(min): 30 Comments: Critical care time was necessary, due to high probability of imminent and life- threatening decline, due to respiratory distress and hypoxia, secondary to COPD exacerbation and respiratory infection. Time Includes: Direct patient care, Review records, Reassess patient, Document care, Coordinate care, Medical consult and See progress note Data interpretation: Labs, Pulse ox, ABG, CXR and See progress note Discharge Plan Discharge Patient Disposition: 68 [facility] DC/Xfer Condition: Serious Clinical Impression: Acute respiratory infection, Hypoxia, COPD exacerbation Interventions: ED Admission Assessment Last Done: 06/27/24 12:53
[2024-06-27] MEDS: IPRATROPIUM/ALBUTEROL 3 ML NEB INH STA (09:06)
[2024-06-27 09:10] LABS: ABG BASE EXCESS 8.9 mmol/L (-2.0-3.0); ABG OXYGEN SATURATION 91 % (95-98); ABG PCO2 47 mmHg (34-45); ABG PH 7.45 (7.35-7.45); ABG PO2 58 mmHg (83-108); ABG TCO2 34.6 mmol/L (21.0-29.0); ALLEN TEST POSITIVE
[2024-06-27 09:15] LABS: BASOPHILS # (AUTO) 0.1 10^3/uL (0.0-0.1); BASOPHILS % (AUTO) 0.6 %; EOSINOPHILS # (AUTO) 0.1 10^3/uL (0.0-0.7); HCT - HEMATOCRIT 43.6 % (37.0-47.0); HGB - HEMOGLOBIN 13.8 g/dL (12.0-16.0); LYMPHOCYTES # (AUTO) 1.7 10^3/uL (1.5-3.5); LYMPHOCYTES % (AUTO) 16.4 %; MEAN CORPUSCULAR HEMOGLOBIN 26.6 pg (27.0-31.0); MEAN CORPUSCULAR HGB CONC 31.7 g/dL (32.0-36.0); MONOCYTES # (AUTO) 0.8 10^3/uL (0.0-1.0); MONOCYTES % (AUTO) 7.4 %; NEUTROPHILS # (AUTO) 7.7 10^3/uL (1.5-6.6); NEUTROPHILS % (AUTO) 74.2 %; PLT - PLATELET COUNT 228 10^3/uL (130-450); RED BLOOD COUNT 5.19 10^6/uL (4.20-5.40); WHITE BLOOD COUNT 10.3 x10^3/uL (4.8-10.8)
[2024-06-27] MEDS: SODIUM CHLORIDE 0.9% 1,000 ML IV STA (09:17)
[2024-06-27 09:31] LABS: ALBUMIN 4.3 g/dL (3.2-5.5); ALBUMIN/GLOBULIN RATIO 1.8 (1.0-2.2); ALKALINE PHOSPHATASE 105 IU/L (42-121); ALT ALANINE AMINOTRANSFERASE 21 IU/L (10-60); AST ASPARTATE AMINOTRANSFERASE 45 IU/L (10-42); BILIRUBIN,TOTAL 0.3 mg/dL (0.2-1.0); BUN - BLOOD UREA NITROGEN 11 mg/dL (6-20); CALCIUM 9.3 mg/dL (8.5-10.3); CARBON DIOXIDE - CO2 32 mmol/L (21-32); CHLORIDE 94 mmol/L (101-111); CREATININE 0.5 mg/dL (0.6-1.3); GFR - MDRD 123 (>89); GLUCOSE 148 mg/dL (74-104); LIPASE < 10 U/L (11-82); POTASSIUM 2.9 mmol/L (3.5-4.5); SODIUM 134 mmol/L (135-145); TOTAL PROTEIN 6.7 g/dL (6.4-8.9)
--- NOTE | 2024-06-27 09:36 | XRAY Report ---
PROCEDURE: XR Chest 1V INDICATIONS: cough, hypoxia TECHNIQUE: One view of the chest was acquired. COMPARISON: None. FINDINGS: Surgical changes and devices: None. Lungs and pleura: No pleural effusions or pneumothorax. Very mild interstitial pulmonary edema. Mediastinum: Mediastinal contours appear normal. Heart size is normal. Bones and chest wall: No suspicious bony lesions. Overlying soft tissues appear unremarkable. Calci fied left breast mammoplasty. IMPRESSION: Very mild interstitial pulmonary edema. Reviewed by: Ken Zepeda MD on 06/27/2024 9:35 AM PST Approved by: Ken Zepeda MD on 06/27/2024 9:35 AM PST Station ID: [id number]
[2024-06-27] MEDS: cefTRIAXone 2 GM in SODIUM CHLORIDE 0.9% MINIBAG 100 ML IV STA (09:44)
[2024-06-27 09:57] LABS: CORONAVIRUS 229E-RESP PCR NOT DETECTED; CORONAVIRUS HKU1-RESP PCR NOT DETECTED; CORONAVIRUS NL63-RESP PCR NOT DETECTED; CORONAVIRUS OC43-RESP PCR DETECTED
[2024-06-27 09:58] LABS: B. PARAPERTUSSIS- RESP PCR PAN NOT DETECTED; B. PERTUSSIS- RESP PCR PANEL NOT DETECTED; C. PNEUMONIAE- RESP PCR PANEL NOT DETECTED; HUMAN METAPNEUMOVIRUS NOT DETECTED; INFLUENZA A- RESP PCR PANEL NOT DETECTED; INFLUENZA B - RESP PCR PANEL NOT DETECTED; M. PNEUMONIAE- RESP PCR PANEL NOT DETECTED; PARAINFLUENZA VIRUS 1 NOT DETECTED; PARAINFLUENZA VIRUS 2 NOT DETECTED; PARAINFLUENZA VIRUS 4 NOT DETECTED; RHINOVIRUS/ENTEROVIRUS NOT DETECTED; RSV- RESP PCR PANEL NOT DETECTED; SARS-CoV-2 -RESP PCR PANEL NOT DETECTED
[2024-06-27] MEDS: AZITHROMYCIN INJ 500 MG in SODIUM CHLORIDE 0.9% 250 ML IV STA (10:15)
[2024-06-27] MEDS: ALBUTEROL NEB 2.5 MG/3 ML INH STA (10:36)
[2024-06-27] MEDS ORDERED: ONDANSETRON ODT 4 MG TABLET TL PRN (12:36)
[2024-06-27] MEDS ORDERED: ZOLPIDEM 5 MG TABLET PO PRN (12:36)
--- NOTE | 2024-06-27 12:48 | HISTORY & PHYSICAL EXAMINATION ---
Chief Complaint <Remy Moss - Last Filed: 06/27/24 15:39> Chief Complaint Chief Complaint: Shortness of breath, productive cough History of Present Illness <Remy Moss - Last Filed: 06/27/24 15:39> Admitted From Admitted From:: Emergency dept History Obtained From Records Reviewed: ED, previous records History obtained from: Patient, Chart Exam Limitations: Pt is somnolent History of Present Illness HPI Comment/Other: Daisy is a thin, frail, cachectic 69 y/o F who presented to the ED with shortness of breath and speutum production. Her cough started 1 week ago and got progressivly worse day by day, worse in the mornings with some reliefe in the evenings. Her cough and shortness of breath kept her up last night and she came to the ED at 08:57 today due to worsening shortness of breath. She states thick brown/yellow sputum production, increased chills and sweating, fatigue, and dyspnea with exertion. She has a Hx of HTN controlled with HCTZ and Lisinopril, depression and anxiety. <Kiet Carrasco DO - Last Filed: 06/27/24 15:06> History of Present Illness HPI Comment/Other: Daisy is a thin, frail, cachectic 69 y/o F who presented to the ED with shortness of breath and sputum production. Her cough started 1 week ago and got progressivly worse day by day, worse in the mornings with some reliefe in the evenings. Her cough and shortness of breath kept her up last night and she came to the ED at 08:57 today due to worsening shortness of breath. She states thick brown/yellow sputum production, increased chills and sweating, fatigue, and dyspnea with exertion. She has a Hx of HTN controlled with HCTZ and Lisinopril, depression and anxiety. She denies chestpain, palpation, nausea or vomitting Labs indicated hypokalemia of 2.9. Labs are positive for coronavirus, not COVID and Gram-positive cocci in pairs, gram-negative gram-negative bacilli. Chest x-ray indicates Mild interstitial pulm edema. Patient is DNR/DNI Meds/Allgy <Remy Moss - Last Filed: 06/27/24 15:39> Home Medications Ambulatory Orders Medication Instructions Recorded Confirmed lorazepam 0.5 mg tablet 0.5 mg PO BID PRN Anxiety #32 tabs 04/27/24 06/27/24 lisinopril 40 mg tablet See Rx Instructions .Route 05/12/24 06/27/24 .COMPLEX #28 tabs amlodipine 5 mg tablet 2.5 mg PO DAILY 06/27/24 06/27/24 hydrochlorothiazide 25 mg tablet 25 mg PO DAILY 06/27/24 06/27/24 venlafaxine 150 mg 150 mg PO DAILY 06/27/24 06/27/24 capsule,extended release 24 hr Allergies Allergies Allergy/AdvReac Type Severity Reaction Status Date / Time No Known Drug Allergies Allergy Verified 06/27/24 09:02 PFSH <Remy Moss - Last Filed: 06/27/24 15:39> Medical History Medical History (Updated 06/27/24 @ 15:06 by Kiet Carrasco DO) Ashwin ulcer Gastric ulcer Breast implant leak Surgical History Surgical History (Updated 05/15/24 @ 20:44 by Monik Mena [facility]) Abnormal findings on esophagogastroduodenoscopy (EGD) Upper GI bleed, 03/03/2024, Dr. Rees Social History Social History (Updated 04/11/24 @ 16:56 by Mariella Franco) Smoking Status: Current every day smoker Number of Years Smoked: 30 How many cigarettes a day do you smoke? (20 cigarettes=1 Pk): 20 Second hand tobacco smoke exposure: No Do you dip or chew tobacco?: No Do you vape?: No Patient requests smoking cessation consult: No Initiate information on smoking cessation: No Living arrangement: At home Living Condition: With friend(s) and Other Relationship: Level: Independent Do you feel safe in your home environment?: Yes Suffered physical, verbal, emotional, or financial abuse?: No History of Abuse: No ETOH Use: None Substance Use: denies use Are you sexually active?: No Retired: Yes Service: No POLST Patient has POLST: No Review of Systems <Remy Moss - Last Filed: 06/27/24 15:39> Constitutional Reports: Fatigue, Fever, Chills, Weakness and Diaphoresis Ears, nose, mouth, and throat Reports: Nasal congestion and Hoarseness Cardiovascular Reports: shortness of breath with exertion, shortness of breath when lying down and Decreased exercise tolerance; Denies: chest pain or swelling of feet/ankles Respiratory Reports: Shortness of breath, Cough, Sputum production, Wheezing, SOB at rest, SOB with exertion and Chest congestion Gastrointestinal Denies: Abdominal pain or Abdominal distention Genitourinary Reports: Urinary urgency and Difficulty voiding Neurological Reports: General weakness Psychiatric Reports: Depression and Anxiety Endocrine Reports: Fatigue Allergic/Immunologic Reports: Wheezing Exam <Remy Moss - Last Filed: 06/27/24 15:39> Exam Daisy presents as weak, frail, cachectic 69 y/o F. Somnolent, falling alseep while answering questions but easily roused by voice. She is fully alert to self, location, time, and events. She is sitting straight up in the bed with multiple pillows and leaning forward to breathe easy. Appears to be in mild respiratory distress Constitutional abnormal general appearance (lethargic), (appears older than stated age) and (frail appearing), distress noted (mild), abnormal body habitus (cachectic) and (thin) and alert (AXOx4/4, lethargic / somnolent ) Hot diaphoretic flushed skin HENMT normocephalic, head/scalp atraumatic, hearing grossly normal bilaterally, external ears normal, external nose normal and oral mucous membranes normal Eyes PERRL and conjunctivae abnormal (conjunctival injection) Neck/C-Spine visual inspection normal, trachea midline and cervical spine nontender Lymph no anterior or posterior lymphadenopathy noted Chest inspection of chest normal and palpation of chest normal Respiratory diminished lung sounds bilaterally worse on right side, reduced tidal volume, bilateral wheeze in lower ritter worse on R side, rhonchi in R lower ritter, increase ventilation effort Cardiovascular peripheral pulses 2+ throughout and no additional abnormal heart sounds Tachycardia with a regular rhythm, S1 S2 clearly heard, no S3 S4 noted, no rubs gallops or murmurs noted Gastrointestinal abdomen soft to palpation and nondistended Abdominal tenderness on LRQ Genitourinary bladder abnormal to palpation (states her bladder is full and she needs to void but is unable to) (tender) Back/Pelvis spine normal to inspection, no thoracic spine tenderness, no lumbar spine tenderness and no paraspinal muscle tenderness noted Extremities bilateral UE and LE weakness, muscle a trophy and poor turgor noted. No unilateral or focal deficits noted Neurology no movement abnormality noted, no focal motor deficit noted and no sensory deficits noted Psychiatry mental status grossly normal, oriented x3, thought process normal and cooperative Skin hot, diaphoretic, flushed skin. Poor turgor Sepsis Event Note (H) <Remy Moss - Last Filed: 06/27/24 15:39> Evaluation Confirmed Source and Organism (if known) of Sepsis: Sputum culture: many G+ cocci in pairs Sepsis Associated Organ Dysfunction: SOB / COPD Conclusion/Plan <Remy Moss - Last Filed: 06/27/24 15:39> Problem List (1) COPD exacerbation: Plan: * Continue IV Ceftriaxone and Azithromycin * Ipratropium duo neb one time * Levalbuterol nebulizer 1.25mg q1Hr for presence of wheezing * Methylprednisolone sodium succinate 60 mg IV q8 for 24h then taper down * Supplementary O2 to maintain SpO2 >90% * Incentive Spirometry to improve pulmonary toilet * Ordered Echocardio gram due to SOB (2) Hypoxia: Plan: * Suplimentary O2 to maintain SpO2 >90% (3) Bacterial pneumonia: Plan: * Pos (+) sputum culture for Gram+ cocci in pairs * Continue IV ceftriaxone and Azithromycin (4) Hypokalemia: Plan: * 2.9 upon admit to ED 06/27/24 * Potassium Chloride IV infusion * CMP every 24h (5) Viral pneumonia: (6) Anxiety: (7) Nicotine addiction: Qualifiers: Nicotine product type: cigarettes Substance use status: in withdrawal Qualified Code(s): F17.213 - Nicotine dependence, cigarettes, with withdrawal Plan * Tachycardia - resolving with O2 supplementation. Previous EKG 05/15/24 shows NSR w/ PVCs * Hypertension - Administer Hydralizine 10mg q6h PRN if SBP > 150 Lab Results Lab results reviewed: Yes 06/27/24 09:09 06/27/24 09:09 Diagnostic Imaging Results Diagnostic Imaging Results: positive Final report reviewed Diagnostic Imaging Results Comments: 06/27/24 CXR: Impression: Very mild interstitial pulmonary edema <Kiet Carrasco DO - Last Filed: 06/27/24 15:06> Problem List (1) COPD exacerbation: Plan: likely pt had undiagnosed COPD in bkg of long time smoking hx and imaging duo nebs as needed solumedrol 60 mg IV q8 for 24h then taper down Supplementary O2 to maintain SpO2 >90% Incentive Spirometry (2) Hypoxia: Plan: Suplimentary O2 to maintain SpO2 >90% Follow echo (3) Bacterial pneumonia: Plan: Patient is high risk for bacterial pneumonia in the background of long smoking history and viral pneumonia. sputum culture positive for Gram+ cocci in pairs and gram neg. bacilli Continue IV ceftriaxone and Azithromycin (4) Hypokalemia: Plan: 2.9 upon admit, likely due to meds hold HCTZ, lisinopril replace K (5) Viral pneumonia: Plan: Nasal swab pos (+) for elizabeth virus OC43 (non-Covid19) continue supportive treatment (6) Anxiety: Plan: continue home ativan (7) Nicotine addiction: Plan: pt is a one pack a day smoker for many years add 21mg nicotine patch qd Plan Tachycardia - resolving with O2 supplementation. Previous EKG 05/15/24 shows NSR w/ PVCs Hypertension - Administer Hydralizine 10mg q6h PRN if SBP > 150 Core Measures <Remy Moss - Last Filed: 06/27/24 15:39> Anticipated LOS I expect patient to be DC'd or transferred within 96 hours.: Yes DVT/VTE - Prophylaxis VTE/DVT Prophylaxis med ordered at admit?: Yes AMI - Statin at Admit Aspirin Prescribed on Admit: No
[2024-06-27] MEDS ORDERED: POTASSIUM CHLORIDE INJ 40 MEQ in SODIUM CHLORIDE 0.9% 500 ML IV ONE (13:00)
[2024-06-27] MEDS: IPRATROPIUM/ALBUTEROL 3 ML NEB INH PRN (13:41)
[2024-06-27] MEDS: POTASSIUM CHLOR 10 MEQ/100 ML 10 MEQ/100 ML BAG IV SCH (13:54)
[2024-06-27] MEDS: methylPREDNISolone SUCCINATE 125 MG/2 ML VIAL IVP SCH (13:56)
--- NOTE | 2024-06-27 15:26 | PHARMACY PROGRESS NOTE ---
Best Possible Medication History Admit Date and Time: 06/27/24 1124 Home Medications Medication Instructions Recorded Confirmed Type lorazepam 0.5 mg tablet 0.5 mg PO BID PRN Anxiety #32 tabs 04/27/24 06/27/24 Rx lisinopril 40 mg tablet See Rx Instructions .Route 05/12/24 06/27/24 Rx .COMPLEX #28 tabs amlodipine 5 mg tablet 2.5 mg PO DAILY 06/27/24 06/27/24 History hydrochlorothiazide 25 mg tablet 25 mg PO DAILY 06/27/24 06/27/24 History venlafaxine 150 mg 150 mg PO DAILY 06/27/24 06/27/24 History capsule,extended release 24 hr Processed by: Pharmacy Medications reviewed in ED?: Yes Medication History completed: Yes Patient Interview: Completed [facility] Statement: As the person ultimately responsible for medication therapy, providers are able to order a medication from an existing home medication list in [facility] via the "Reconcile Routine" prior to Confirmation of that medication by shipping support. Such practice is discouraged except when the physician, in their clinical judgment, deems that a medical need exists for a medication without regard to previous use.
[2024-06-27] MEDS: hydrALAZINE INJ 20 MG/ML VIAL IVP PRN (17:38)
[2024-06-27] MEDS: SODIUM CHLORIDE FLUSH 0.9% 10 ML SYRINGE IVP SCH (17:42)
[2024-06-27] MEDS: LORazepam 0.5 MG TABLET PO PRN (18:02)
[2024-06-27] MEDS: LORazepam 2 MG/ML VIAL IVP PRN (18:42)
[2024-06-27] MEDS: BUDESONIDE 0.5 MG/2 ML NEB INH SCH (19:24)
[2024-06-27] MEDS: HEPARIN 5,000 UNIT/ML VIAL SUBQ SCH (21:07)
[2024-06-27] MEDS: MAGNESIUM SULFATE 2 GRAM 2 GM/50 ML BAG IV ONE (21:11)
[2024-06-28 06:13] LABS: BASOPHILS % (AUTO) 0.1 %; EOSINOPHILS % (AUTO) 0.3 %; HCT - HEMATOCRIT 43.9 % (37.0-47.0); HGB - HEMOGLOBIN 14.4 g/dL (12.0-16.0); LYMPHOCYTES # (AUTO) 0.8 10^3/uL (1.5-3.5); LYMPHOCYTES % (AUTO) 7.7 %; MEAN CORPUSCULAR HEMOGLOBIN 27.3 pg (27.0-31.0); MEAN CORPUSCULAR HGB CONC 32.8 g/dL (32.0-36.0); MEAN CORPUSCULAR VOLUME 83.3 fL (81.0-99.0); MEAN PLATELET VOLUME 9.2 fL (7.9-10.8); MONOCYTES # (AUTO) 0.6 10^3/uL (0.0-1.0); MONOCYTES % (AUTO) 6.1 %; NEUTROPHILS # (AUTO) 8.7 10^3/uL (1.5-6.6); NEUTROPHILS % (AUTO) 85.4 %; PLT - PLATELET COUNT 246 10^3/uL (130-450); RED BLOOD COUNT 5.27 10^6/uL (4.20-5.40); WHITE BLOOD COUNT 10.2 x10^3/uL (4.8-10.8)
[2024-06-28 06:26] LABS: CALCIUM 9.4 mg/dL (8.5-10.3); CREATININE 0.4 mg/dL (0.6-1.3)
[2024-06-28] MEDS: AZITHROMYCIN INJ 500 MG in SODIUM CHLORIDE 0.9% 250 ML IV SCH (08:27)
[2024-06-28] MEDS: cefTRIAXone 2 GM in SODIUM CHLORIDE 0.9% MINIBAG 100 ML IV SCH (08:27)
[2024-06-28] MEDS: VENLAFAXINE ER 75 MG CAPSULE PO SCH (08:28)
--- NOTE | 2024-06-28 08:28 | PROVIDER PROGRESS NOTE ---
Subjective Prog Note Date Prog Note Date: 06/28/24 Prog Note Time: 08:23 Subjective Subjective: Daisy is a thin, frail, cachectic 69 y/o F who presented to the ED with shortness of breath and sputum production. Her cough started 1 week ago and got progressivly worse day by day, worse in the mornings with some reliefe in the evenings. Her cough and shortness of breath kept her up last night and she came to the ED at 08:57 today due to worsening shortness of breath. She states thick brown/yellow sputum production, increased chills and sweating, fatigue, and dyspnea with exertion. She has a Hx of HTN controlled with HCTZ and Lisinopril, depression and anxiety. She denies chestpain, palpation, nausea or vomitting Labs indicated hypokalemia of 2.9. Labs are positive for coronavirus, not COVID and Gram-positive cocci in pairs, gram-negative gram-negative bacilli. Chest x-ray indicates Mild interstitial pulm edema. Patient is DNR/DNI 06/28/2024: Patient had a restful night after having a panic high anxiety attack during the early evening hours. Patient was given IV Ativan. Current Medications Current Medications Current Medications: Current Medications Generic Name Dose Route Start Last Admin Trade Name Freq PRN Reason Stop Dose Admin Acetaminophen 650 mg 06/27/24 12:36 Acetaminophen 325 Mg Tablet PO Q4HR PRN Pain 1 to 4, or Fever Albuterol/Ipratropium 3 ml 06/27/24 13:00 06/27/24 18:29 Ipratropium/Albuterol 3 Ml Neb INH 3 ml Q4HR PRN Administration Wheezing Budesonide 0.5 mg 06/27/24 19:00 06/28/24 08:00 Budesonide 0.5 Mg/2 Ml Neb INH 0.5 mg RTBID ESTER Administration Heparin Sodium (Porcine) 5,000 unit 06/27/24 21:00 06/27/24 21:07 Heparin 5,000 Unit/Ml Vial SUBQ 5,000 unit BID ESTER Administration Hydralazine HCl 10 mg 06/27/24 13:00 06/28/24 04:42 Hydralazine Inj 20 Mg/Ml Vial IVP 10 mg Q6HR PRN Administration Hypertensive Emergency Ceftriaxone Sodium 2 gm/ 100 mls @ 200 mls/hr 06/28/24 09:00 Sodium Chloride IV DAILY ESTRE Azithromycin 500 mg/ Sodium 250 mls @ 250 mls/hr 06/28/24 09:00 Chloride IV DAILY ESTER Lorazepam 0.5 mg 06/27/24 12:36 06/27/24 18:02 Lorazepam 0.5 Mg Tablet PO 0.5 mg BID PRN Administration Anxiety Lorazepam 0.5 mg 06/27/24 18:36 06/28/24 08:15 Lorazepam 2 Mg/Ml Vial IVP 0.5 mg Q2H PRN Administration Anxiety Methylprednisolone Sodium Succinate 60 mg 06/27/24 14:00 06/28/24 06:38 Methylprednisolone Succinate 125 Mg/2 Ml Vial IVP 60 mg TID ESTER Administration Nicotine 1 patch 06/28/24 09:00 Nicotine 21 Mg Patch TOP DAILY ESTER Ondansetron HCl 4 mg 06/27/24 12:36 Ondansetron Odt 4 Mg Tablet TL Q6HR PRN Nausea / Vomiting Sodium Chloride 10 ml 06/27/24 12:36 Sodium Chloride Flush 0.9% 10 Ml Syringe IVP PRN PRN NEEDED PER PROVIDER ORDERS Sodium Chloride 10 ml 06/27/24 17:00 06/28/24 00:52 Sodium Chloride Flush 0.9% 10 Ml Syringe IVP 10 ml 0100,0900,1700 ESTER Administration Venlafaxine HCl 150 mg 06/28/24 09:00 Venlafaxine Er 75 Mg Capsule PO DAILY ESTER Zolpidem Tartrate 5 mg 06/27/24 12:36 Zolpidem 5 Mg Tablet PO QPM PRN Insomnia Objective Vital Signs/Intake & Output Reviewed Vital Signs: Yes Vital Signs: Vital Signs x48h Temp Pulse Pulse Pulse Resp BP BP 06/28/24 08:04 36.7 C 116 H 24 137/96 H 06/28/24 08:01 06/28/24 08:01 113 H 18 06/28/24 05:12 145/101 H 06/28/24 04:42 153/103 H 06/28/24 04:35 36.5 C 121 H 24 157/103 H Pulse Ox O2 Flow Rate 06/28/24 08:04 97 2 06/28/24 08:01 1 06/28/24 08:01 1 06/28/24 05:12 06/28/24 04:42 01/22/25 04:35 96 3 Intake & Output: Intake & Output 06/25/24 06/26/24 06/27/24 06/28/24 23:59 23:59 23:59 23:59 Intake Total 2049 Balance 2049 Weight (kg) 54 kg 54 kg Objective General Appearance: positive No acute distress and Alert Eyes Bilateral: positive Normal inspection and PERRL ENT: positive ENT inspection nml Neck: positive Nml inspection and Trachea midline Respiratory: positive Chest non-tender, Rales, Rhonchi and Other (Patient now on 2 L nasal cannulae) Cardiovascular: positive Other (Sinus tach) Abdomen: positive Non-tender and No organomegaly Skin: positive Color nml and No rash Extremities: positive Non-tender and Full ROM Neurologic/Psychiatric: positive Oriented x3 and CN's nml (2-12) Lab Results 06/28/24 05:25 06/28/24 05:25 Other Labs: Lab Results x24hrs 06/28/24 06/27/24 06/27/24 Range/Units 05:25 14:40 09:09 WBC 10.2 10.3 (4.8-10.8) x10^3/uL RBC 5.27 5.19 (4.20-5.40) 10^6/uL Hgb 14.4 13.8 (12.0-16.0) g/dL Hct 43.9 43.6 (37.0-47.0) % MCV 83.3 84.0 (81.0-99.0) fL MCH 27.3 26.6 L (27.0-31.0) pg MCHC 32.8 31.7 L (32.0-36.0) g/dL RDW 19.0 H 18.0 H (12.0-15.0) % Plt Count 246 228 (130-450) 10^3/uL MPV 9.2 9.0 (7.9-10.8) fL Neut # (Auto) 8.7 H 7.7 H (1.5-6.6) 10^3/uL Lymph # (Auto) 0.8 L 1.7 (1.5-3.5) 10^3/uL [place] # (Auto) 0.6 0.8 (0.0-1.0) 10^3/uL Eos # (Auto) 0.0 0.1 (0.0-0.7) 10^3/uL Baso # (Auto) 0.0 0.1 (0.0-0.1) 10^3/uL Absolute Nucleated RBC 0.00 0.00 x10^3/uL Nucleated RBC % 0.0 0.0 /100WBC Bld Gas Analysis Time Sample Site ABG pH (7.35-7.45) ABG pCO2 (34-45) mmHg ABG pO2 (83-108) mmHg ABG HCO3 (22.0-26.0) mmol/L ABG Total CO2 (21.0-29.0) mmol/L ABG O2 Saturation (95-98) % ABG Base Excess (-2.0-3.0) mmol/L Javier Test O2 Delivery Device Sodium 136 134 L (135-145) mmol/L Potassium 3.0 L 2.9 L (3.5-4.5) mmol/L Chloride 98 L 94 L (101-111) mmol/L Carbon Dioxide 28 32 (21-32) mmol/L Anion Gap 10.0 8.0 (6-13) BUN 11 11 (6-20) mg/dL Creatinine 0.4 L 0.5 L (0.6-1.3) mg/dL Estimated GFR (MDRD) 159 123 (>89) Glucose 134 H 148 H (74-104) mg/dL Calcium 9.4 9.3 (8.5-10.3) mg/dL Total Bilirubin 0.3 (0.2-1.0) mg/dL AST 45 H (10-42) IU/L ALT 21 (10-60) IU/L Alkaline Phosphatase 105 (42-121) IU/L B-Natriuretic Peptide 250 H (5-100) pg/mL Total Protein 6.7 (6.4-8.9) g/dL Albumin 4.3 (3.2-5.5) g/dL Globulin 2.4 (2.1-4.2) g/dL Albumin/Globulin Ratio 1.8 (1.0-2.2) Lipase < 10 L (11-82) U/L Nasal Adenovirus (PCR) Nasal B. parapertussis DNA (PCR) Nasal Coronavir 229E PCR Nasal Coronavir HKU1 PCR Nasal Coronavir NL63 PCR Nasal Coronavir OC43 PCR Nasal Enterovir/Rhinovir PCR Nasal Influenza B PCR Nasal Influenza A PCR Nasal Parainfluen 1 PCR Nasal Parainfluen 2 PCR Nasal Parainfluen 3 PCR Nasal Parainfluen 4 PCR Nasal RSV (PCR) Nasal Screen MRSA (PCR) NEGATIVE (NEGATIVE) Nasal B.pertussis DNA PCR Nasal C.pneumoniae (PCR) Luis Human Metapneumo PCR Nasal M.pneumoniae (PCR) Nasal SARS-CoV-2 (PCR) 06/27/24 06/27/24 Range/Units 08:57 08:55 WBC (4.8-10.8) x10^3/uL RBC (4.20-5.40) 10^6/uL Hgb (12.0-16.0) g/dL Hct (37.0-47.0) % MCV (81.0-99.0) fL MCH (27.0-31.0) pg MCHC (32.0-36.0) g/dL RDW (12.0-15.0) % Plt Count (130-450) 10^3/uL MPV (7.9-10.8) fL Neut # (Auto) (1.5-6.6) 10^3/uL Lymph # (Auto) (1.5-3.5) 10^3/uL [place] # (Auto) (0.0-1.0) 10^3/uL Eos # (Auto) (0.0-0.7) 10^3/uL Baso # (Auto) (0.0-0.1) 10^3/uL Absolute Nucleated RBC x10^3/uL Nucleated RBC % /100WBC Bld Gas Analysis Time 0906 Sample Site RIGHT RADIAL ABG pH 7.45 (7.35-7.45) ABG pCO2 47 H (34-45) mmHg ABG pO2 58 L (83-108) mmHg ABG HCO3 33.1 H (22.0-26.0) mmol/L ABG Total CO2 34.6 H (21.0-29.0) mmol/L ABG O2 Saturation 91 L (95-98) % ABG Base Excess 8.9 H (-2.0-3.0) mmol/L Javier Test POSITIVE O2 Delivery Device NO DEVICE/ROOM AIR Sodium (135-145) mmol/L Potassium (3.5-4.5) mmol/L Chloride (101-111) mmol/L Carbon Dioxide (21-32) mmol/L Anion Gap (6-13) BUN (6-20) mg/dL Creatinine (0.6-1.3) mg/dL Estimated GFR (MDRD) (>89) Glucose (74-104) mg/dL Calcium (8.5-10.3) mg/dL Total Bilirubin (0.2-1.0) mg/dL AST (10-42) IU/L ALT (10-60) IU/L Alkaline Phosphatase (42-121) IU/L B-Natriuretic Peptide (5-100) pg/mL Total Protein (6.4-8.9) g/dL Albumin (3.2-5.5) g/dL Globulin (2.1-4.2) g/dL Albumin/Globulin Ratio (1.0-2.2) Lipase (11-82) U/L Nasal Adenovirus (PCR) NOT DETECTED Nasal B. parapertussis DNA (PCR) NOT DETECTED Nasal Coronavir 229E PCR NOT DETECTED Nasal Coronavir HKU1 PCR NOT DETECTED Nasal Coronavir NL63 PCR NOT DETECTED Nasal Coronavir OC43 PCR DETECTED A Nasal Enterovir/Rhinovir PCR NOT DETECTED Nasal Influenza B PCR NOT DETECTED Nasal Influenza A PCR NOT DETECTED Nasal Parainfluen 1 PCR NOT DETECTED Nasal Parainfluen 2 PCR NOT DETECTED Nasal Parainfluen 3 PCR NOT DETECTED Nasal Parainfluen 4 PCR NOT DETECTED Nasal RSV (PCR) NOT DETECTED Nasal Screen MRSA (PCR) (NEGATIVE) Nasal B.pertussis DNA PCR NOT DETECTED Nasal C.pneumoniae (PCR) NOT DETECTED Luis Human Metapneumo PCR NOT DETECTED Nasal M.pneumoniae (PCR) NOT DETECTED Nasal SARS-CoV-2 (PCR) NOT DETECTED Diagnostic Imaging Diagnostic Imaging Results: positive Final report reviewed Sepsis Event Note (H) Evaluation Current Stage of Sepsis: Sepsis Possible source of Sepsis: positive Pulmonary Sepsis Criteria Sepsis Criteria: Suspected or Documented Assessment/Plan Problem List (1) COPD exacerbation: Impression: Based on patient's long smoking history and chest x-ray patient is likely has undiagnosed COPD. Currently patient is in the COPD exacerbation. Continue nebulizer treatment, Solu-Medrol and incentive spirometry. Patient will need to have a follow-up appointment with a front desk representative for pulm function tests. (2) Bacterial pneumonia: Impression: Patient is high risk for bacterial pneumonia in the background of long smoking history and viral pneumonia. sputum culture positive for Gram+ cocci in pairs and gram neg. bacilli Continue IV ceftriaxone 2/5 and Azithromycin 2/3 (3) Hypokalemia: Impression: Continue to hold HCTZ, lisinopril. Replace potassium (4) Viral pneumonia: Impression: Non-COVID 19 coronavirus on nasal swab. Continue supportive measures (5) Anxiety: Impression: Ativan p.o. for Ativan IV as needed for severe anxiety (6) Nicotine addiction: Impression: Nicotine patch Patient Would benefit from outpatient nicotine cessation counseling Qualifiers: Nicotine product type: cigarettes Substance use status: in withdrawal Qualified Code(s): F17.213 - Nicotine dependence, cigarettes, with withdrawal (7) Acute hypoxic respiratory failure: Impression: Secondary to viral/bacterial pneumonia in the setting of COPD exacerbation and a longtime smoker. Patient also has a history of high anxiety which Exacerbates her Respiratory drive Continue supplemental oxygen, DuoNebs, Solu-Medrol, Pulmicort. Maintain SpO2 greater than 90%. Patient will need to follow-up as an outpatient in the pulmonary clinic.
[2024-06-28] MEDS: NICOTINE 21 MG PATCH TOP SCH (08:29)
[2024-06-28] MEDS: CHOLECALCIFEROL 25 MCG TABLET PO SCH (11:50)
[2024-06-28] MEDS: POTASSIUM CHLORIDE 20 MEQ TABLET PO SCH (11:51)
[2024-06-28] MEDS: PANTOPRAZOLE 40 MG TABLET PO SCH (11:51)
[2024-06-28] MEDS: MULTIVITAMIN W/MINERALS TABLET PO SCH (16:17)
[2024-06-28] MEDS: lisinopriL 20 MG TABLET PO SCH (16:17)
[2024-06-28] MEDS: oxyCODONE 5 MG TABLET PO PRN (16:18)
[2024-06-29 05:30] LABS: BASOPHILS % (AUTO) 0.1 %; HCT - HEMATOCRIT 43.8 % (37.0-47.0); HGB - HEMOGLOBIN 14.2 g/dL (12.0-16.0); LYMPHOCYTES # (AUTO) 0.7 10^3/uL (1.5-3.5); LYMPHOCYTES % (AUTO) 4.7 %; MEAN CORPUSCULAR HGB CONC 32.4 g/dL (32.0-36.0); MEAN CORPUSCULAR VOLUME 83.4 fL (81.0-99.0); MEAN PLATELET VOLUME 9.2 fL (7.9-10.8); MONOCYTES # (AUTO) 0.6 10^3/uL (0.0-1.0); MONOCYTES % (AUTO) 4.1 %; NEUTROPHILS % (AUTO) 90.6 %; PLT - PLATELET COUNT 272 10^3/uL (130-450); RED BLOOD COUNT 5.25 10^6/uL (4.20-5.40); WHITE BLOOD COUNT 14.4 x10^3/uL (4.8-10.8)
[2024-06-29 05:37] LABS: CALCIUM 9.3 mg/dL (8.5-10.3); CREATININE 0.4 mg/dL (0.6-1.3); POTASSIUM 3.3 mmol/L (3.5-4.5)
[2024-06-29] MEDS: METOPROLOL SUCCINATE 25 MG TABLET PO SCH (08:22)
[2024-06-29] MEDS: VENLAFAXINE ER 75 MG CAPSULE PO SCH (08:22)
[2024-06-29] MEDS: amLODIPine 5 MG TABLET PO SCH (08:23)
[2024-06-29] MEDS: methylPREDNISolone SUCCINATE 40 MG/ML VIAL IVP SCH (08:24)
--- NOTE | 2024-06-29 09:27 | PROVIDER PROGRESS NOTE ---
Subjective Prog Note Date Prog Note Date: 06/29/24 Prog Note Time: 09:25 Subjective Subjective: Daisy is a thin, frail, cachectic 69 y/o F who presented to the ED with shortness of breath and sputum production. Her cough started 1 week ago and got progressivly worse day by day, worse in the mornings with some reliefe in the evenings. Her cough and shortness of breath kept her up last night and she came to the ED at 08:57 today due to worsening shortness of breath. She states thick brown/yellow sputum production, increased chills and sweating, fatigue, and dyspnea with exertion. She has a Hx of HTN controlled with HCTZ and Lisinopril, depression and anxiety. She denies chestpain, palpation, nausea or vomitting Labs indicated hypokalemia of 2.9. Labs are positive for coronavirus, not COVID and Gram-positive cocci in pairs, gram-negative gram-negative bacilli. Chest x-ray indicates Mild interstitial pulm edema. Patient is DNR/DNI 06/28/2024: Patient had a restful night after having a panic high anxiety attack during the early evening hours. Patient was given IV Ativan. 06/29/2024: Patient states that she is better but not yet at baseline. Patient feels that She is still wheezing and feels tight in her lungs. Current Medications Current Medications Current Medications: Current Medications Generic Name Dose Route Start Last Admin Trade Name Freq PRN Reason Stop Dose Admin Acetaminophen 650 mg 06/27/24 12:36 Acetaminophen 325 Mg Tablet PO Q4HR PRN Pain 1 to 4, or Fever Albuterol/Ipratropium 3 ml 06/27/24 13:00 06/29/24 07:27 Ipratropium/Albuterol 3 Ml Neb INH 3 ml Q4HR PRN Administration Wheezing Amlodipine Besylate 2.5 mg 06/29/24 09:00 06/29/24 08:23 Amlodipine 5 Mg Tablet PO 2.5 mg DAILY ESTER Administration Budesonide 0.5 mg 06/27/24 19:00 06/29/24 07:27 Budesonide 0.5 Mg/2 Ml Neb INH 0.5 mg RTBID ESTER Administration Cholecalciferol 50 mcg 06/28/24 11:00 06/29/24 08:22 Cholecalciferol 25 Mcg Tablet PO 50 mcg DAILY ESTER Administration Heparin Sodium (Porcine) 5,000 unit 06/27/24 21:00 06/29/24 08:21 Heparin 5,000 Unit/Ml Vial SUBQ 5,000 unit BID ESTER Administration Hydralazine HCl 10 mg 06/27/24 13:00 06/29/24 01:09 Hydralazine Inj 20 Mg/Ml Vial IVP 10 mg Q6HR PRN Administration Hypertensive Emergency Ceftriaxone Sodium 2 gm/ 100 mls @ 200 mls/hr 06/28/24 09:00 06/29/24 09:14 Sodium Chloride IV Infused DAILY ESTER Infusion Azithromycin 500 mg/ Sodium 250 mls @ 250 mls/hr 06/28/24 09:00 06/29/24 09:14 Chloride IV 250 mls/hr DAILY ESTER Administration Lisinopril 20 mg 06/28/24 16:00 06/29/24 08:22 Lisinopril 20 Mg Tablet PO 20 mg DAILY ESTER Administration Lorazepam 0.5 mg 06/27/24 12:36 06/29/24 08:23 Lorazepam 0.5 Mg Tablet PO 0.5 mg BID PRN Administration Anxiety Lorazepam 0.5 mg 06/27/24 18:36 06/29/24 03:19 Lorazepam 2 Mg/Ml Vial IVP 0.5 mg Q2H PRN Administration Anxiety Methylprednisolone 40 mg 06/29/24 08:00 06/29/24 08:36 Methylprednisolone Succinate 40 Mg/Ml Vial IVP 07/01/24 08:03 40 mg BID ESTER Administration Metoprolol Succinate 25 mg 06/29/24 09:00 06/29/24 08:22 Metoprolol Succinate 25 Mg Tablet PO 25 mg DAILY ESTER Administration Multivitamins/Minerals 1 tab 06/28/24 17:00 06/29/24 08:22 Multivitamin W/Minerals Tablet PO 1 tab DAILYWM ESTER Administration Nicotine 1 patch 06/28/24 09:00 06/29/24 08:23 Nicotine 21 Mg Patch TOP 1 patch DAILY ESTER Administration Ondansetron HCl 4 mg 06/27/24 12:36 Ondansetron Odt 4 Mg Tablet TL Q6HR PRN Nausea / Vomiting Oxycodone HCl 5 mg 06/28/24 15:57 06/29/24 08:21 Oxycodone 5 Mg Tablet PO 5 mg Q4HR PRN Administration Moderate Pain (Level 4-6) Pantoprazole Sodium 40 mg 06/28/24 12:00 06/29/24 06:31 Pantoprazole 40 Mg Tablet PO 40 mg QDAC ESTER Administration Potassium Chloride 20 meq 06/28/24 12:00 06/29/24 08:21 Potassium Chloride 20 Meq Tablet PO 20 meq DAILYWM ESTER Administration Sodium Chloride 10 ml 06/27/24 12:36 Sodium Chloride Flush 0.9% 10 Ml Syringe IVP PRN PRN NEEDED PER PROVIDER ORDERS Sodium Chloride 10 ml 06/27/24 17:00 06/29/24 08:23 Sodium Chloride Flush 0.9% 10 Ml Syringe IVP 10 ml 0100,0900,1700 ESTER Administration Venlafaxine HCl 150 mg 06/29/24 09:00 06/29/24 08:22 Venlafaxine Er 75 Mg Capsule PO 150 mg DAILY ESTER Administration Zolpidem Tartrate 5 mg 06/27/24 12:36 Zolpidem 5 Mg Tablet PO QPM PRN Insomnia Objective Vital Signs/Intake & Output Reviewed Vital Signs: Yes Vital Signs: Vital Signs x48h Temp Pulse Pulse Resp BP BP BP 06/29/24 08:06 37 C 121 H 20 157/105 H 06/29/24 07:28 116 H 20 06/29/24 04:01 37.1 C 119 H 18 166/113 H 06/29/24 01:40 149/88 H 06/29/24 01:39 149/88 H Pulse Ox O2 Flow Rate 06/29/24 08:06 94 0 06/29/24 07:28 06/29/24 04:01 93 06/29/24 01:40 06/29/24 01:39 Intake & Output: Intake & Output 06/26/24 06/27/24 06/28/24 06/29/24 23:59 23:59 23:59 23:59 Intake Total 2049 890 / 890 340 / 340 Output Total 325 / 325 200 / 200 Balance 2049 565 / 565 140 / 140 Weight (kg) 54 kg 54 kg 54 kg Objective General Appearance: positive No acute distress and Alert Eyes Bilateral: positive Normal inspection and PERRL ENT: positive ENT inspection nml Neck: positive Nml inspection and Trachea midline Respiratory: positive Chest non-tender, Wheezes, Rales, Rhonchi and Other (Use of accessory muscles) Cardiovascular: positive No murmur and Other (Sinus tach) Abdomen: positive Non-tender and No organomegaly Skin: positive Color nml and No rash Extremities: positive Non-tender and Full ROM Neurologic/Psychiatric: positive Oriented x3 and CN's nml (2-12) Lab Results 06/29/24 04:59 06/29/24 04:59 Other Labs: Lab Results x24hrs 06/29/24 Range/Units 04:59 WBC 14.4 H (4.8-10.8) x10^3/uL RBC 5.25 (4.20-5.40) 10^6/uL Hgb 14.2 (12.0-16.0) g/dL Hct 43.8 (37.0-47.0) % MCV 83.4 (81.0-99.0) fL MCH 27.0 (27.0-31.0) pg MCHC 32.4 (32.0-36.0) g/dL RDW 20.0 H (12.0-15.0) % Plt Count 272 (130-450) 10^3/uL MPV 9.2 (7.9-10.8) fL Neut # (Auto) 13.0 H (1.5-6.6) 10^3/uL Lymph # (Auto) 0.7 L (1.5-3.5) 10^3/uL Lares # (Auto) 0.6 (0.0-1.0) 10^3/uL Eos # (Auto) 0.0 (0.0-0.7) 10^3/uL Baso # (Auto) 0.0 (0.0-0.1) 10^3/uL Absolute Nucleated RBC 0.00 x10^3/uL Nucleated RBC % 0.0 /100WBC Sodium 137 (135-145) mmol/L Potassium 3.3 L (3.5-4.5) mmol/L Chloride 100 L (101-111) mmol/L Carbon Dioxide 29 (21-32) mmol/L Anion Gap 8.0 (6-13) BUN 20 (6-20) mg/dL Creatinine 0.4 L (0.6-1.3) mg/dL Estimated GFR (MDRD) 159 (>89) Glucose 129 H (74-104) mg/dL Calcium 9.3 (8.5-10.3) mg/dL Diagnostic Imaging Diagnostic Imaging Results: positive Final report reviewed Sepsis Event Note (H) Evaluation Current Stage of Sepsis: Sepsis Possible source of Sepsis: positive Pulmonary Sepsis Criteria Sepsis Criteria: Suspected or Documented Assessment/Plan Problem List (1) COPD exacerbation: Impression: Based on patient's long smoking history and chest x-ray patient is likely has undiagnosed COPD. Currently patient is in the COPD exacerbation. Continue nebulizer treatment, Solu-Medrol and incentive spirometry. Patient will need to have a follow-up appointment with a printing specialist for pulm function tests. Patient now on room air while resting but desaturates very quickly upon walking to the bathroom. Plan for RT oximetry study while walking. Follow echo (2) Bacterial pneumonia: Impression: Patient is high risk for bacterial pneumonia in the background of long smoking history and viral pneumonia. sputum culture positive for Gram+ cocci in pairs and gram neg. bacilli Continue IV ceftriaxone 3/5 and Azithromycin 3/ (3) Hypokalemia: Impression: Continue to hold HCTZ, lisinopril. Replace potassium (4) Viral pneumonia: Impression: Non-COVID 19 coronavirus on nasal swab. Continue supportive measures (5) Anxiety: Impression: Ativan p.o. for Ativan IV as needed for severe anxiety (6) Nicotine addiction: Impression: Nicotine patch Patient Would benefit from outpatient nicotine cessation counseling Qualifiers: Nicotine product type: cigarettes Substance use status: in withdrawal Qualified Code(s): F17.213 - Nicotine dependence, cigarettes, with withdrawal (7) Acute hypoxic respiratory failure: Impression: Secondary to viral/bacterial pneumonia in the setting of COPD exacerbation and a longtime smoker. Patient also has a history of high anxiety which Exacerbates her Respiratory drive Continue supplemental oxygen, DuoNebs, Solu-Medrol, Pulmicort. Maintain SpO2 greater than 90%. Patient will need to follow-up as an outpatient in the pulmonary clinic. (8) Essential hypertension: Impression: Likely exacerbated by steroid use In the setting of COPD exacerbation Restart patient on home medication of amlodipine, and lisinopril. New medication: Metoprolol 25 mg p.o. daily Hold HCTZ due to hypokalemia. Hydralazine as needed.
[2024-06-29] MEDS: ACETAMINOPHEN 325 MG TABLET PO PRN (16:41)
[2024-06-30 06:23] LABS: BASOPHILS % (AUTO) 0.1 %; EOSINOPHILS % (AUTO) 0.1 %; HCT - HEMATOCRIT 42.6 % (37.0-47.0); HGB - HEMOGLOBIN 13.3 g/dL (12.0-16.0); LYMPHOCYTES # (AUTO) 1.1 10^3/uL (1.5-3.5); LYMPHOCYTES % (AUTO) 7.8 %; MEAN CORPUSCULAR HEMOGLOBIN 26.9 pg (27.0-31.0); MEAN CORPUSCULAR HGB CONC 31.2 g/dL (32.0-36.0); MEAN CORPUSCULAR VOLUME 86.1 fL (81.0-99.0); MEAN PLATELET VOLUME 9.1 fL (7.9-10.8); MONOCYTES # (AUTO) 0.4 10^3/uL (0.0-1.0); MONOCYTES % (AUTO) 3.1 %; NEUTROPHILS # (AUTO) 12.1 10^3/uL (1.5-6.6); NEUTROPHILS % (AUTO) 88.5 %; PLT - PLATELET COUNT 257 10^3/uL (130-450); RED BLOOD COUNT 4.95 10^6/uL (4.20-5.40); RED CELL DISTRIBUTION WIDTH 19.8 % (12.0-15.0); WHITE BLOOD COUNT 13.7 x10^3/uL (4.8-10.8)
[2024-06-30 06:37] LABS: CREATININE 0.5 mg/dL (0.6-1.3); POTASSIUM 3.8 mmol/L (3.5-4.5)
[2024-06-30] MEDS: SODIUM CHLORIDE FLUSH 0.9% 10 ML SYRINGE IVP PRN (09:07)
--- NOTE | 2024-06-30 10:33 | PROVIDER PROGRESS NOTE ---
Subjective Prog Note Date Prog Note Date: 06/30/24 Prog Note Time: 10:31 Subjective Subjective: Daisy is a thin, frail, cachectic 69 y/o F who presented to the ED with shortness of breath and sputum production. Her cough started 1 week ago and got progressivly worse day by day, worse in the mornings with some reliefe in the evenings. Her cough and shortness of breath kept her up last night and she came to the ED at 08:57 today due to worsening shortness of breath. She states thick brown/yellow sputum production, increased chills and sweating, fatigue, and dyspnea with exertion. She has a Hx of HTN controlled with HCTZ and Lisinopril, depression and anxiety. She denies chestpain, palpation, nausea or vomitting Labs indicated hypokalemia of 2.9. Labs are positive for coronavirus, not COVID and Gram-positive cocci in pairs, gram-negative gram-negative bacilli. Chest x-ray indicates Mild interstitial pulm edema. Patient is DNR/DNI 06/28/2024: Patient had a restful night after having a panic high anxiety attack during the early evening hours. Patient was given IV Ativan. 06/29/2024: Patient states that she is better but not yet at baseline. Patient feels that She is still wheezing and feels tight in her lungs. 06/30/2024: Patient states that she feels better, she feels her wheezing has resolved. Patient states she is still very short of breath When walking.Patient states that is not her baseline. Current Medications Current Medications Current Medications: Current Medications Generic Name Dose Route Start Last Admin Trade Name Narciso PRN Reason Stop Dose Admin Acetaminophen 650 mg 06/27/24 12:36 06/30/24 09:04 Acetaminophen 325 Mg Tablet PO 650 mg Q4HR PRN Administration Pain 1 to 4, or Fever Albuterol/Ipratropium 3 ml 06/27/24 13:00 06/30/24 08:17 Ipratropium/Albuterol 3 Ml Neb INH 3 ml Q4HR PRN Administration Wheezing Amlodipine Besylate 2.5 mg 06/29/24 09:00 06/30/24 07:54 Amlodipine 5 Mg Tablet PO 2.5 mg DAILY ESTER Administration Budesonide 0.5 mg 06/27/24 19:00 06/30/24 08:17 Budesonide 0.5 Mg/2 Ml Neb INH 0.5 mg RTBID ESTER Administration Cholecalciferol 50 mcg 06/28/24 11:00 06/30/24 09:05 Cholecalciferol 25 Mcg Tablet PO 50 mcg DAILY ESTER Administration Heparin Sodium (Porcine) 5,000 unit 06/27/24 21:00 06/30/24 09:13 Heparin 5,000 Unit/Ml Vial SUBQ 5,000 unit BID ESTER Administration Hydralazine HCl 10 mg 06/27/24 13:00 06/30/24 05:30 Hydralazine Inj 20 Mg/Ml Vial IVP 10 mg Q6HR PRN Administration Hypertensive Emergency Ceftriaxone Sodium 2 gm/ 100 mls @ 200 mls/hr 06/28/24 09:00 06/30/24 09:37 Sodium Chloride IV Infused DAILY ESTER Infusion Azithromycin 500 mg/ Sodium 250 mls @ 250 mls/hr 06/28/24 09:00 06/30/24 09:50 Chloride IV 250 mls/hr DAILY ESTER Administration Lisinopril 20 mg 06/28/24 16:00 06/30/24 07:54 Lisinopril 20 Mg Tablet PO 20 mg DAILY ESTER Administration Lorazepam 0.5 mg 06/27/24 12:36 06/30/24 09:52 Lorazepam 0.5 Mg Tablet PO 0.5 mg BID PRN Administration Anxiety Lorazepam 0.5 mg 06/27/24 18:36 06/30/24 04:30 Lorazepam 2 Mg/Ml Vial IVP 0.5 mg Q2H PRN Administration Anxiety Methylprednisolone 40 mg 06/29/24 08:00 06/30/24 09:07 Methylprednisolone Succinate 40 Mg/Ml Vial IVP 07/01/24 08:03 40 mg BID ESTER Administration Metoprolol Succinate 25 mg 06/29/24 09:00 06/30/24 07:54 Metoprolol Succinate 25 Mg Tablet PO 25 mg DAILY ESTER Administration Multivitamins/Minerals 1 tab 06/28/24 17:00 06/30/24 09:06 Multivitamin W/Minerals Tablet PO 1 tab DAILYWM ESTER Administration Nicotine 1 patch 06/28/24 09:00 06/30/24 09:07 Nicotine 21 Mg Patch TOP 1 patch DAILY ESTER Administration Ondansetron HCl 4 mg 06/27/24 12:36 Ondansetron Odt 4 Mg Tablet TL Q6HR PRN Nausea / Vomiting Oxycodone HCl 5 mg 06/28/24 15:57 06/30/24 07:56 Oxycodone 5 Mg Tablet PO 5 mg Q4HR PRN Administration Moderate Pain (Level 4-6) Pantoprazole Sodium 40 mg 06/28/24 12:00 06/30/24 05:31 Pantoprazole 40 Mg Tablet PO 40 mg QDAC ESTER Administration Potassium Chloride 20 meq 06/28/24 12:00 06/30/24 09:05 Potassium Chloride 20 Meq Tablet PO 20 meq DAILYWM ESTER Administration Sodium Chloride 10 ml 06/27/24 12:36 06/30/24 09:07 Sodium Chloride Flush 0.9% 10 Ml Syringe IVP 10 ml PRN PRN Administration NEEDED PER PROVIDER ORDERS Sodium Chloride 10 ml 06/27/24 17:00 06/30/24 07:57 Sodium Chloride Flush 0.9% 10 Ml Syringe IVP 10 ml 0100,0900,1700 ESTER Administration Venlafaxine HCl 150 mg 06/29/24 09:00 06/30/24 09:04 Venlafaxine Er 75 Mg Capsule PO 150 mg DAILY ESTER Administration Zolpidem Tartrate 5 mg 06/27/24 12:36 Zolpidem 5 Mg Tablet PO QPM PRN Insomnia Objective Vital Signs/Intake & Output Reviewed Vital Signs: Yes Vital Signs: Vital Signs x48h Temp Pulse Pulse Resp BP BP BP 06/30/24 09:19 145/95 H 06/30/24 08:19 80 20 06/30/24 07:52 36.7 C 110 H 19 170/114 H 06/30/24 07:51 37 C 107 H 20 163/110 H 06/30/24 06:00 143/97 H 06/30/24 05:42 96 143/97 H 06/30/24 04:28 37.1 C 95 22 168/118 H Pulse Ox O2 Flow Rate 06/30/24 09:19 06/30/24 08:19 06/30/24 07:52 96 0 06/30/24 07:51 90 L 06/30/24 06:00 06/30/24 05:42 06/30/24 04:28 94 Intake & Output: Intake & Output 01/21/06/28/24 06/29/24 06/30/24 23:59 23:59 23:59 23:59 Intake Total 2049 890 / 890 1786 / 1786 380 / 380 Output Total 325 / 325 550 / 550 Balance 2049 565 / 565 1236 / 1236 380 / 380 Weight (kg) 54 kg 54 kg 54 kg 54 kg Objective General Appearance: positive No acute distress and Alert Eyes Bilateral: positive Normal inspection and PERRL ENT: positive ENT inspection nml Neck: positive Nml inspection and Trachea midline Respiratory: positive Chest non-tender and Other (Use of accessory muscles Which seems to be her baseline) Cardiovascular: positive No murmur and Other (Sinus tach) Abdomen: positive Non-tender and No organomegaly Skin: positive Color nml and No rash Extremities: positive Non-tender and Full ROM Neurologic/Psychiatric: positive Oriented x3 and CN's nml (2-12) Lab Results 06/30/24 05:38 06/30/24 05:38 Other Labs: Lab Results x24hrs 06/30/24 Range/Units 05:38 WBC 13.7 H (4.8-10.8) x10^3/uL RBC 4.95 (4.20-5.40) 10^6/uL Hgb 13.3 (12.0-16.0) g/dL Hct 42.6 (37.0-47.0) % MCV 86.1 (81.0-99.0) fL MCH 26.9 L (27.0-31.0) pg MCHC 31.2 L (32.0-36.0) g/dL RDW 19.8 H (12.0-15.0) % Plt Count 257 (130-450) 10^3/uL MPV 9.1 (7.9-10.8) fL Neut # (Auto) 12.1 H (1.5-6.6) 10^3/uL Lymph # (Auto) 1.1 L (1.5-3.5) 10^3/uL Henry # (Auto) 0.4 (0.0-1.0) 10^3/uL Eos # (Auto) 0.0 (0.0-0.7) 10^3/uL Baso # (Auto) 0.0 (0.0-0.1) 10^3/uL Absolute Nucleated RBC 0.00 x10^3/uL Nucleated RBC % 0.0 /100WBC Sodium 134 L (135-145) mmol/L Potassium 3.8 (3.5-4.5) mmol/L Chloride 101 (101-111) mmol/L Carbon Dioxide 27 (21-32) mmol/L Anion Gap 6.0 (6-13) BUN 20 (6-20) mg/dL Creatinine 0.5 L (0.6-1.3) mg/dL Estimated GFR (MDRD) 123 (>89) Glucose 116 H (74-104) mg/dL Calcium 9.0 (8.5-10.3) mg/dL Diagnostic Imaging Diagnostic Imaging Results: positive Final report reviewed Sepsis Event Note (H) Evaluation Current Stage of Sepsis: Sepsis Possible source of Sepsis: positive Pulmonary Sepsis Criteria Sepsis Criteria: Suspected or Documented Assessment/Plan Problem List (1) COPD exacerbation: Impression: Based on patient's long smoking history and chest x-ray patient is likely has undiagnosed COPD. Currently patient is in the COPD exacerbation. Continue nebulizer treatment, Solu-Medrol and incentive spirometry. Patient will need to have a follow-up appointment with a banking and finance instructor for pulm function tests. Patient now on room air while resting but desaturates very quickly upon walking to the bathroom. Oximetry study per RT indicated patient is quickly desaturating to the mid 80s upon exercise. Patient may need O2 supplementation for home Echo indicates reduced EF of 35 to 40% Continue ABX treatment, continue Pulmicort and 30 Medrol. (2) Bacterial pneumonia: Impression: Patient is high risk for bacterial pneumonia in the background of long smoking history and viral pneumonia. sputum culture positive for Gram+ cocci in pairs and gram neg. bacilli Continue IV ceftriaxone 4/5 and Azithromycin 3/3 (3) Hypokalemia: Impression: Resolved Restart patient on home lisinopril and HCTZ (4) Viral pneumonia: Impression: Non-COVID 19 coronavirus on nasal swab. Continue supportive measures (5) Anxiety: Impression: Home Ativan p.o. Scheduled Ativan IV as needed for severe anxiety (6) Nicotine addiction: Impression: Nicotine patch Patient Would benefit from outpatient nicotine cessation counseling Qualifiers: Nicotine product type: cigarettes Substance use status: in withdrawal Qualified Code(s): F17.213 - Nicotine dependence, cigarettes, with withdrawal (7) Acute hypoxic respiratory failure: Impression: Secondary to viral/bacterial pneumonia in the setting of COPD exacerbation and a longtime smoker. Patient also has a history of high anxiety which Exacerbates her Respiratory drive Continue supplemental oxygen, DuoNebs, Solu-Medrol, Pulmicort. Maintain SpO2 greater than 90%. Patient's continues to desat into the mid 80s upon exercise. Patient may need home O2 at discharge Patient will need to follow-up as an outpatient in the pulmonary clinic. (8) Essential hypertension: Impression: Likely exacerbated by steroid use In the setting of COPD exacerbation Restart patient on home medication of amlodipine, and lisinopril, HCTZ New medication: Metoprolol 25 mg p.o. daily Hydralazine as needed.
[2024-06-30] MEDS: hydroCHLOROthiazide 25 MG TABLET PO SCH (10:54)
[2024-07-01] MEDS ORDERED: LORazepam 0.5 MG TABLET PO PRN (05:16)
[2024-07-01 06:01] LABS: BASOPHILS % (AUTO) 0.1 %; HCT - HEMATOCRIT 46.8 % (37.0-47.0); LYMPHOCYTES # (AUTO) 1.5 10^3/uL (1.5-3.5); LYMPHOCYTES % (AUTO) 12.8 %; MEAN CORPUSCULAR HEMOGLOBIN 27.2 pg (27.0-31.0); MEAN CORPUSCULAR HGB CONC 32.1 g/dL (32.0-36.0); MEAN CORPUSCULAR VOLUME 84.8 fL (81.0-99.0); MEAN PLATELET VOLUME 8.7 fL (7.9-10.8); MONOCYTES # (AUTO) 0.6 10^3/uL (0.0-1.0); NEUTROPHILS # (AUTO) 9.7 10^3/uL (1.5-6.6); NEUTROPHILS % (AUTO) 81.7 %; PLT - PLATELET COUNT 276 10^3/uL (130-450); RED BLOOD COUNT 5.52 10^6/uL (4.20-5.40); WHITE BLOOD COUNT 11.9 x10^3/uL (4.8-10.8)
[2024-07-01 06:15] LABS: CALCIUM 9.4 mg/dL (8.5-10.3); CREATININE 0.5 mg/dL (0.6-1.3); POTASSIUM 4.2 mmol/L (3.5-4.5)
[2024-07-01 09:17] VITALS: BP 149/106; TEMP 98.2; O2SAT 94
--- NOTE | 2024-07-01 12:06 | Discharge Summary ---
Discharge Summary Admit Date: 06/27/24 Discharge Date: 07/01/24 Discharging Provider: nena Code Status: Attempt Resuscitation DIAGNOSES Admission Diagnoses: Viral pneumonia Acute hypoxic respiratory failure COPD newly diagnosed COPD exacerbation Discharge Diagnoses with Status of Each Condition: Viral pneumonia - Resolved Acute hypoxic respiratory failure - Resolved COPD newly diagnosed - Recommended follow-up with pulmonary clinic COPD exacerbation - Continue new medications Pulmicort HPI History of Present Illness: Daisy is a thin, frail, cachectic 69 y/o F who presented to the ED with shortness of breath and sputum production. Her cough started 1 week ago and got progressivly worse day by day, worse in the mornings with some reliefe in the evenings. Her cough and shortness of breath kept her up last night and she came to the ED at 08:57 today due to worsening shortness of breath. She states thick brown/yellow sputum production, increased chills and sweating, fatigue, and dyspnea with exertion. She has a Hx of HTN controlled with HCTZ and Lisinopril, depression and anxiety. She denies chestpain, palpation, nausea or vomitting Labs indicated hypokalemia of 2.9. Labs are positive for coronavirus, not COVID and Gram-positive cocci in pairs, gram-negative gram-negative bacilli. Chest x-ray indicates Mild interstitial pulm edema. Patient is DNR/DNI 06/28/2024: Patient had a restful night after having a panic high anxiety attack during the early evening hours. Patient was given IV Ativan. 06/29/2024: Patient states that she is better but not yet at baseline. Patient feels that She is still wheezing and feels tight in her lungs. 06/30/2024: Patient states that she feels better, she feels her wheezing has resolved. Patient states she is still very short of breath When walking.Patient states that is not her baseline. HOSPITAL COURSE Hospital Course: Patient was admitted for Viral pneumonia non-COVID coronavirus. This respiratory infection caused The patient to be hypoxic and short of breath. she was started on Rocephin and azithromycin for possible bacterial pneumonia. The patient was also started on prednisone and Pulmicort for COPD exacerbation. On the day of discharge Patient was tested for O2 oximetry while exercising and she passed. Patient was discharged with the following recommendations: Please stop smoking Please follow up with your PCP for pulmonary referral for lung function tests. Patient was discharged with the following medications: metoprolol for hypertension, take one pill in the morning pulmicort, 1 puff twice a day prednisone taper, take as directed nicotine patches, one per day oxycodone for pain as needed ALLERGIES Allergies Allergy/AdvReac Type Severity Reaction Status Date / Time No Known Drug Allergies Allergy Verified 06/27/24 09:02 MEDICATIONS Ambulatory Orders Medication Instructions Recorded Confirmed lorazepam 0.5 mg tablet 0.5 mg PO BID PRN Anxiety #32 tabs 04/27/24 06/27/24 lisinopril 40 mg tablet See Rx Instructions .Route 05/12/24 06/27/24 .COMPLEX #28 tabs amlodipine 5 mg tablet 2.5 mg PO DAILY 06/27/24 06/27/24 hydrochlorothiazide 25 mg tablet 25 mg PO DAILY 06/27/24 06/27/24 venlafaxine 150 mg 150 mg PO DAILY 06/27/24 06/27/24 capsule,extended release 24 hr budesonide 90 mcg/actuation breath 1 inh inhalation BID #1 ea 07/01/24 activated powder inhaler (Pulmicort Flexhaler) metoprolol succinate 25 mg 25 mg PO DAILY #30 tabs 07/01/24 tablet,extended release 24 hr nicotine 21 mg/24 hr daily 1 patch topical DAILY #28 ea 07/01/24 transdermal patch oxycodone 5 mg tablet 5 mg PO Q4HR PRN Moderate Pain 07/01/24 (Level 4-6) #20 tabs potassium chloride 20 mEq 20 meq PO DAILYWM #60 tabs 07/01/24 tablet,extended release(part/cryst) (Klor-Con M) PHYSICAL EXAM AT DISCHARGE General Appearance: positive No acute distress and Alert Eyes Bilateral: positive Normal inspection and PERRL Neck: positive Nml inspection and Trachea midline Respiratory: positive Chest non-tender and No respiratory distress Cardiovascular: positive Regular rate & rhythm and No murmur Abdomen: positive Non-tender and No organomegaly Skin: positive Color nml and No rash Extremities: positive Non-tender and Full ROM Neurologic/Psychiatric: positive Oriented x3 and CN's nml (2-12) LABS 07/01/24 05:48 07/01/24 05:48 DIAGNOSTIC IMAGING Diagnostic Imaging Results: Final report reviewed SEPSIS Current Stage of Sepsis: Sepsis Possible source of Sepsis: Pulmonary Sepsis Criteria: Suspected or Documented FOLLOW UP Follow Up: Primary care physician to obtain referral to primary clinic TIME SPENT Time Spent in Discharge (Minutes): 30 Discharge Plan Discharge Patient Disposition: 01 Home, Self Care Condition: Serious Medically Cleared Date:: 07/01/24 Prescriptions: New potassium chloride [Klor-Con M20] 20 mEq Tablet,Er Particles/Crystals 20 meq PO DAILYWM Qty: 60 0RF Rx Instructions: take 1 tab daily with food oxycodone 5 mg Tablet 5 mg PO Q4HR PRN (Reason: Moderate Pain (Level 4-6)) Qty: 20 0RF Rx Instructions: take one tab every 6 hours for pain as needed metoprolol succinate 25 mg Tablet Extended Release 24 Hr 25 mg PO DAILY Qty: 30 0RF nicotine 21 mg/24 hr Patch 24 Hour 1 patch topical DAILY Qty: 28 3RF Rx Instructions: attach 1 patch per day to upper arm Pulmicort Flexhaler 90 mcg/actuation aerosol powdr breath activated 1 inh inhalation BID Qty: 1 2RF Continued lorazepam 0.5 mg tablet 0.5 mg PO BID PRN (Reason: Anxiety) Qty: 32 0RF Patient Comments: Patient states she takes one in the morning, and one around 2pm. Rx Instructions: Take 1 tablet by mouth twice a day as needed anxiety/panic Not to exceed 2 tablets daily. Avoid taking more than necessary to prevent tolerance/overuse. lisinopril 40 mg tablet See Rx Instructions .ROUTE .COMPLEX Qty: 28 5RF Dose Instruction: TAKE 1 TABLET BY MOUTH DAILY Rx Instructions: TAKE 1 TABLET BY MOUTH DAILY hydrochlorothiazide 25 mg tablet 25 mg PO DAILY venlafaxine 150 mg capsule,extended release 24hr 150 mg PO DAILY amlodipine 5 mg tablet 2.5 mg PO DAILY Activity Restrictions: Activity as Tolerated Diet: Regular Health Concerns: You are admitted for Viral pneumonia non-COVID coronavirus.This respiratory infection caused you to be hypoxic and short of breath. He was started on Rocephin and azithromycin for possible bacterial pneumonia. You are also started on prednisone and Pulmicort for COPD exacerbation. On the day of discharge you were tested for O2 oximetry while exercising and you passed. Please stop smoking Please follow up with your PCP for pulmonary referral for lung function tests. I started you on new medications: metoprolol for hypertension, take one pill in the morning pulmicort, 1 puff twice a day prednisone taper, take as directed nicotine patches, one per day oxycodone for pain as needed Print Language: [place] Citizen Patient Instructions: COPD, COPD Dx Stand Alone Forms: PCP List Follow-up Care: Monik Mena ARNP [Primary Care Provider] -
[2024-07-01] MEDS ORDERED: LORazepam 0.5 MG TABLET PO SCH ×2 (13:00→13:04)
== END 2024-07-01 14:00 | disposition home or self-care (01) | DRG 871 ==
LOC: MS2 08:44 → ED 08:44 → MS2 13:00
PROVIDERS: ADMIT Internal Medicine; ATTEND Internal Medicine
DX: Z79.899 Other long term (current) drug therapy; F17.210 Nicotine dependence, cigarettes, uncomplicated; Z20.818 Contact with and (suspected) exposure to other bacterial communicable diseases; Z20.828 Contact with and (suspected) exposure to other viral communicable diseases; J96.01 Acute respiratory failure with hypoxia; J12.89 Other viral pneumonia; F41.9 Anxiety disorder, unspecified; E87.6 Hypokalemia; A41.89 Other specified sepsis; J12.9 Viral pneumonia, unspecified; Z20.822 Contact with and (suspected) exposure to COVID-19; F41.0 Panic disorder [episodic paroxysmal anxiety]; R64 Cachexia; F32.A Depression, unspecified; J44.1 Chronic obstructive pulmonary disease with (acute) exacerbation; Z66 Do not resuscitate; I10 Essential (primary) hypertension; B97.29 Other coronavirus as the cause of diseases classified elsewhere; J15.9 Unspecified bacterial pneumonia; F17.213 Nicotine dependence, cigarettes, with withdrawal; J44.0 Chronic obstructive pulmonary disease with (acute) lower respiratory infection; Z68.1 Body mass index [BMI] 19.9 or less, adult

== ENCOUNTER 2025-01-30 17:42 | Observation (INO) ==
--- OUTSIDE RECORDS SUMMARY | 2025-01-30 18:13 | EXTERNAL MEDICAL SUMMARY RPT | Continuity of Care Document ---
Author Organization [facility] Address [address] [place] [id number] Phone Problems date description facility 2024-11-15 10:14 Chronic obstructive pulmonary d isease, unspecified [facility] 07:41 [facility] 2024-[facility]-21 07:41 Nicotine dependence, cigarettes , with withdrawal [facility] 2024-11-21 07:41 [facility], [facility] 2024-[facility]-21 07:41 Essential (primary) hypertensio n [facility] 2024-[facility]-21 07:41 Viral pneumonia, [facility] 2024-11-21 07:41 Unspecified bacterial pneumonia [facility] 2024-[facility]-21 07:41 Chronic obstructive pulmonary disease with (acute) lower respiratory infection [facility] 2024-[facility]-21 07:41 Chronic obstructive pulmonary disease with (acute) exacerbation [facility] 2024-11-21 07:41 Acute respiratory failure with hypoxia [facility] 2024-[facility]-21 07:41 [facility] 07:41 Age-related osteopor osis without current pathological fracture [facility] 2024-11-21 07:41 Cough, unspecified [facility] 2024-11-21 07:41 Shortness of breath [facility] 2024-11-21 07:41 Hypoxemia [facility] 2024-12-07 14:24 Panic disorder [episodic paroxy smal anxiety] [facility] 2024-[facility]-07 14:24 Generalized anxiety disorder [facility] 2024-12-07 14:24 Disorder of teeth an d supporting structures, unspecified [facility] 2024-[facility]-07 14:24 Localized edema [facility] 2024-[facility]-07 14:24 Encounter for screen ing for malignant neoplasm of colon [facility] 2024-12-07 14:24 Encounter for screen ing for malignant neoplasm of rectum [facility] 2024-12-07 14:24 Encounter for immunization safe ty counseling [facility] 2025-01-08 15:33 Generalized anxiety disorder [facility] 2025-01-16 18:45 Cervicalgia [facility] 2025-01-19 10:15 Other malaise [facility] Social History date description facility
--- NOTE | 2025-01-30 18:31 | ED Physician Documentation ---
History of Present Illness Stated complaint Stated Complaint: ABNORMAL LABS Chief complaint Chief Complaint: General History obtained from History obtained from: Patient Additonal information Additional information: 69-year-old woman with history of ulcerative bleeding, has seen our surgeon for that. She also has a history of remote alcoholism in remission. She has had bloody and black stools for the last few days associate with abdominal discomfort and she is also recently diagnosed with oral thrush but has not started medications for that yet. She went to the clinic today where she was noted to have a hemoglobin of 7.3 and her baseline is around 14. She has been feeling weak and dizzy. She denies NSAID use. She was prescribed nystatin today but has not started it yet. Meds/Allgy Home Medications Ambulatory Orders Medication Instructions Recorded Confirmed potassium chloride 20 mEq 20 meq PO DAILYWM #60 tabs 0 07/01/24 01/30/25 tablet,extended release(part/cryst) (Klor-Con M) valacyclovir 500 mg tablet 500 mg PO QDAY #90 tabs 12/2901/30/25 venlafaxine 150 mg 150 mg PO DAILY #90 caps 12/2901/30/25 capsule,extended release 24 hr fluticasone 250 mcg-salmeterol 50 1 inh inhalation BID #60 ea 11/07/24 01/30/25 mcg/dose blistr powdr for inhalation (Advair Diskus) hydrochlorothiazide 25 mg tablet 25 mg PO DAILY hypert ension #90 11/22/24 01/30/25 tabs cholecalciferol (vitamin D3) 50 50 mcg PO QDAY #90 cap s 11/27/24 01/30/25 mcg (2,000 unit) capsule amlodipine 5 mg tablet 5 mg PO BID 12/07/24 5 lisinopril 40 mg tablet 40 mg PO QDAY 12/07/2401/30 lorazepam 0.5 mg tablet 0.5 mg PO BID-TID PRN Anxiet y #65 01/08/25 01/30/25 tabs tizanidine 4 mg tablet 4 mg PO Q8H PRN muscle spast icity 01/16/25 01/30/25 #20 tabs nystatin 100,000 unit/mL oral 500,000 unit (5 mL) PO Q ID 14 days 01/30/25 suspension #280 mL nystatin 100,000 unit/mL oral 500,000 unit (5 mL) PO Q ID 14 days 01/30/25 01/30/25 suspension #280 mL omeprazole 40 mg capsule,delayed 40 mg PO QDAY #30 cap s 01/30/25 01/30/25 release Allergies Allergies Allergy/AdvReac Type Severity Reaction Status Date / Time codeine AdvReac Mild Nausea Verified 01/30/25 18:05 [facility] Active Problems All Active Problems (Updated 01/30/25 @ 20:36 by Dilan Jorge MD) Encephalopathy acute (Acute) Thrush (Acute) Melena (Acute) History of alcohol abuse (Acute) Opioid abuse (Acute) Oral thrush (Acute) GI bleed (Acute) Severe anemia (Acute) Acute sinusitis (Acute) Neck pain (Acute) At risk for falls (Acute) Immunization counseling (Acute) Pedal edema (Acute) Screening for colorectal cancer (Acute) Poor dentition (Acute) Insomnia due to mental disorder (Acute) Apnea (Acute) Alcohol dependence in sustained full remission (Acute) Generalized anxiety disorder with panic attacks (Chronic) Agoraphobia (Chronic) COPD (chronic obstructive pulmonary disease) (Chronic) Polyarthralgia (Chronic) Peptic ulcer disease (Chronic) Osteoporosis (Chronic) Left ventricular hypertrophy by electrocardiogram (Chronic) Heart palpitations (Chronic) Chronic pain (Chronic) Knee pain, bilateral (Chronic) Kidney, malrotation (Chronic) Depression, major, recurrent, moderate (Chronic) HSV (herpes simplex virus) infection (Chronic) Tobacco dependence (Chronic 08/12/23) Raynaud's syndrome (Chronic 10/26/22) Essential hypertension (Chronic 01/11/23) Medical History Medical History (Updated 01/30/25 @ 20:36 by Dilan Jorge MD) Breast implant status Panic attack (10/26/22) Generalized anxiety disorder Upper GI bleed Ashwin ulcer Gastric ulcer Breast implant leak Surgical History Surgical History Abnormal findings on esophagogastroduodenoscopy (EGD) Upper GI bleed, 03/03/2024, Dr. Rees Family History Family History Mother Depressed Sister Leukemia Lung cancer Maternal grandmother Diabetes Social History Social History Smoking Status: Smoker current status unk Number of Years Smoked: 30 How many cigarettes a day do you smoke? (20 cigarettes=1 Pk): 20 Second hand tobacco smoke exposure: No Do you dip or chew tobacco?: No Do you vape?: No Patient requests smoking cessation consult: No Initiate information on smoking cessation: No Living arrangement: At home Living Condition: With friend(s) and Other Support Person: Yes Physical Activity: other Level: Independent Do you feel safe in your home environment?: Yes History of physical, verbal, emotional, or financial abuse?: No ETOH Use: None Substance Use: denies use Are you sexually active?: No Retired: Yes Service: No POLST Patient has POLST: No Exam Exam Vital Signs: Vital Signs x48h Temp Pulse Resp BP Pulse Ox 01/30/25 18:42 100 21 162/92 H 93 01/30/25 17:57 37.2 C 105 H 16 175/109 H 95 Constitutional normal general appearance Somewhat frail-appearing woman who appears older than stated age and is a vague historian. HENMT Oral thrush, dentures Cardiovascular Mild resting tachycardia, regular without murmur Gastrointestinal abdomen soft to palpation and nontender to palpation Psychiatry oriented x3 Results Vitals Vitals: Vital Signs - 24 hr 01/30/25 17:57 01/30/25 18:41 01/30/25 18:42 Temperature 37.2 C Temperature Source Tympanic Pulse Rate 105 H 100 Respiratory Rate 16 21 Blood Pressure 175/109 H 162/92 H O2 Saturation 95 93 O2 Source Room air Room air Pain Intensity 0 8 8 Oxygen O2 Source Room air Labs Labs: Laboratory Tests 01/30/25 18:35 WBC 7.1 RBC 3.74 L Hgb 10.1 L Hct 32.2 L MCV 86.1 MCH 27.0 MCHC 31.4 L RDW 15.1 H Plt Count 422 MPV 7.8 L Neut # (Auto) Not Reportable Lymph # (Auto) Not Reportable [place] # (Auto) Not Reportable Eos # (Auto) Not Reportable Baso # (Auto) Not Reportable Absolute Nucleated RBC Not Reportable Total Counted 100 Band Neuts % (Manual) 27 H Reactive Lymphs % (Man) 3 Abnorm Lymph % (Manual) 0 Nucleated RBC % Not Reportable Neutrophils # (Manual) 5.1 Lymphocytes # (Manual) 1.4 L Monocytes # (Manual) 0.5 Eosinophils # (Manual) 0.1 Basophils # (Manual) 0.0 Differential Comment MANUAL DIFFERENTIAL Platelet Estimate NORMAL (130-450,000) Platelet Morphology NORMAL APPEARANCE RBC Morph Micro Appear NORMAL APPEARANCE PT 12.7 H INR 1.1 Sodium 133 L Potassium 3.2 L Chloride 95 L Carbon Dioxide 30 Anion Gap 8.0 BUN 12 Creatinine 0.4 L Estimated GFR (MDRD) 159 Glucose 116 H Calcium 9.0 Total Bilirubin 0.4 AST 14 ALT 17 Alkaline Phosphatase 84 Total Protein 6.5 Albumin 3.4 Globulin 3.1 Albumin/Globulin Ratio 1.1 Lipase < 10 L Ethyl Alcohol < 10.0 Blood Type O NEGATIVE Antibody Screen NEGATIVE PD Medical Decision Making ED course ED course: She presents with symptoms of a GI bleed. She does have a history of ulcers and remote alcoholic addiction but no evidence of liver disease. She comes in with her daughter. In the clinic her Hgb was 7 but was 10 here. Dilated ducts on CTA Abd, no GIB. Her usual hemoglobin is 14 so she still down 4 points. Later in the stay daughter noted that she has been encephalopathic since arrival. She was reexamined. She certainly is sleepy but nonfocal. No asterixis. Ammonia added on as well as drug screens. No alcohol on board. Spoke with Dr. Son for consultation at 8:30 PM and MELO Griffin for admission at 8:35 PM. Discharge Plan Discharge Patient Disposition: ED Place in Observation Condition: Stable Clinical Impression: Alcohol dependence in sustained full remission, Melena, Thrush, Encephalopathy acute Prescriptions: No Action hydrochlorothiazide 25 mg tablet 25 mg PO DAILY Qty: 90 0RF Rx Instructions: Take 1 tablet by mouth once daily potassium chloride [Klor-Con M20] 20 mEq Tablet,Er Particles/Crystals 20 meq PO DAILYWM Qty: 60 0RF Rx Instructions: take 1 tab daily with food venlafaxine 150 mg capsule,extended release 24hr 150 mg PO DAILY Qty: 90 4RF valacyclovir 500 mg tablet 500 mg PO QDAY Qty: 90 4RF amlodipine 5 mg tablet 5 mg PO BID lisinopril 40 mg tablet 40 mg PO QDAY lorazepam 0.5 mg tablet 0.5 mg PO BID-TID MDD 1 mg PRN (Reason: Anxiety) Qty: 65 2RF Patient Comments: Patient states she takes one in the morning, and one around 2pm. Rx Instructions: Take 1 tablet by mouth twice a day as needed anxiety/panic. May take third dose for sleep infrequently. Not to exceed 3 tablets daily. nystatin 100,000 unit/mL suspension 500,000 unit PO QID 14 Days Qty: 280 0RF Patient Comments: hasn't started yet Rx Instructions: administer 1/2 of dose in each side of the mouth nystatin 100,000 unit/mL suspension 500,000 unit PO QID 14 Days Qty: 280 0RF Patient Comments: hasn't started yet Rx Instructions: administer 1/2 of dose in each side of the mouth omeprazole 40 mg capsule,delayed release(DR/EC) 40 mg PO QDAY Qty: 30 2RF fluticasone propion-salmeterol [Advair Diskus] 250-50 mcg/dose blister with device 1 inh inhalation BID Qty: 60 11RF cholecalciferol (vitamin D3) 50 mcg (2,000 unit) capsule 50 mcg PO QDAY Qty: 90 3RF tizanidine 4 mg tablet 4 mg PO Q8H PRN (Reason: muscle spasticity) Qty: 20 0RF Print Language: Frisian Stand Alone Forms: PCP List
[2025-01-30 18:39] LABS: HCT - HEMATOCRIT 32.2 % (37.0-47.0); HGB - HEMOGLOBIN 10.1 g/dL (12.0-16.0); MEAN PLATELET VOLUME 7.8 fL (7.9-10.8); PLT - PLATELET COUNT 422 10^3/uL (130-450); RED CELL DISTRIBUTION WIDTH 15.1 % (12.0-15.0)
[2025-01-30 18:41] LABS: ABNORMAL LYMPHS % (MANUAL) 0 %; BASOPHILS # (MANUAL) 0.0 10^3/uL (0-0.1)
[2025-01-30] MEDS: ACETAMINOPHEN 500 MG TABLET PO STA (18:41)
[2025-01-30 18:51] LABS: INR 1.1 (0.8-1.2); PT - PROTHROMBIN TIME 12.7 secs (9.9-12.6)
[2025-01-30 18:53] LABS: ALT ALANINE AMINOTRANSFERASE 17 IU/L (10-60); AST ASPARTATE AMINOTRANSFERASE 14 IU/L (10-42); BUN - BLOOD UREA NITROGEN 12 mg/dL (6-20); CARBON DIOXIDE - CO2 30 mmol/L (21-32); CREATININE 0.4 mg/dL (0.6-1.3); ETOH - ETHANOL < 10.0 mg/dL; GFR - MDRD 159 (>89)
[2025-01-30 19:30] LABS: BAND NEUTROPHILS % (MANUAL) 27 %; EOSINOPHILS # (MANUAL) 0.1 10^3/uL (0-0.7); LYMPHOCYTES # (MANUAL) 1.4 10^3/uL (1.5-3.5); LYMPHOCYTES % (MANUAL) 17 %; MONOCYTES # (MANUAL) 0.5 10^3/uL (0.0-1.0); NEUTROPHILS # (MANUAL) 5.1 10^3/uL (1.5-6.6); REACTIVE LYMPHS % (MANUAL) 3 %
[2025-01-30 19:31] LABS: PLATELET ESTIMATE, MANUAL NORMAL (130-450,000) (NORMAL); PLATELET MORPHOLOGY NORMAL APPEARANCE (NORMAL); RBC MORPHOLOGY (MULTIPLE) NORMAL APPEARANCE (NORMAL)
--- NOTE | 2025-01-30 20:23 | CT Report ---
PROCEDURE: CT Angio Abdomen/Pelvis INDICATIONS: GI bleed CONTRAST: OMNI 300, 80ML TECHNIQUE: After the administration of intravenous contrast, images were acquired from the diaphragm to the symphysis. Maximum-intensity projection (MIP) reformats were then acquired. For radiation dose reduction, the following was used: automated exposure control, adjustment of mA and/or kV according to patient size. COMPARISON: CTA abdomen 03/03/2024. FINDINGS: Image quality: Excellent. VESSELS: Aorta: No aortic dissection. Mild ectasia. No aneurysm. Extensive calcified atherosclerotic plaque. Mesenteric arteries: Celiac trunk, superior and inferior mesenteric arteries appear patent. Right pelvic arteries: Patent Left pelvic arteries: Patent No active extravasation. No GI bleed identified. Portal vein is patent. CHEST: Lung bases and heart: Breast implants. Linguini sign suspected on the right suggesting intracapsular breast implant rupture. ABDOMEN: Liver: No solid mass. Enlarged liver. Gallbladder and biliary tree: Small gallstones. CBD measures 1 cm. Spleen: No splenomegaly. Pancreas: Pancreatic duct measures 0.5 cm and is mildly dilated. Adrenals: No adrenal nodule. Kidneys and ureters: No hydronephrosis. No renal cystic lesion which requires follow up. No solid mass. Bowel and peritoneum: No bowel distension. No pathologic free fluid. Prominent stool in the colon. The appendix is not dilated. Lymph nodes: No central or retroperitoneal adenopathy. PELVIS Reproductive organs: Anteverted uterus. Bladder: No abnormal wall thickening. Pelvic lymph nodes: No pelvic adenopathy by size criteria. Bones: No aggressive osseous abnormality. Bilateral hip DJD. Other: No significant ventral or inguinal hernia. IMPRESSION: 1. No active extravasation demonstrated. No GI bleed identified. 2. No acute aortic syndrome. 3. CBD and pancreatic duct are dilated. -Recommend MRCP or ERCP for further evaluation. 4. Small gallstone. Hepatomegaly Reviewed by: Chi Davies MD on 01/30/2025 8:21 PM PDT Approved by: Chi Davies MD on 01/30/2025 8:21 PM PDT Station ID: [id number]
[2025-01-30 20:48] LABS: GLUCOSE, URINE (UA) NEGATIVE (NEGATIVE); KETONES,URINE (UA) NEGATIVE (NEGATIVE); OCCULT BLOOD,URINE NEGATIVE (NEGATIVE)
[2025-01-30 20:54] LABS: COCAINE SCREEN URINE NEGATIVE (NEGATIVE); THC CANNABINOID SCREEN, URINE NEGATIVE (NEGATIVE)
[2025-01-30 20:55] LABS: AMPHETAMINE SCREEN,URINE NEGATIVE (NEGATIVE); BARBITURATE SCREEN,UR NEGATIVE (NEGATIVE); BENZODIAZEPINES SCREEN, URINE POSITIVE (NEGATIVE); BUPRENORPHINE SCREEN, URINE NEGATIVE (NEGATIVE); METHADONE SCREEN, URINE NEGATIVE (NEGATIVE); METHAMPHETAMINES SCREEN, URINE NEGATIVE (NEGATIVE); OPIATE SCREEN, URINE POSITIVE (NEGATIVE)
--- NOTE | 2025-01-30 21:19 | HISTORY & PHYSICAL EXAMINATION ---
Chief Complaint Chief Complaint Chief Complaint: low hemoglobin History of Present Illness Admitted From Admitted From:: home History Obtained From Records Reviewed: last admit, walk in clinic note History obtained from: patient and daughter History of Present Illness HPI Comment/Other: 69F smoker, hx COPD, anxiety, alcoholism in remission, upper GIB (s/p upper endoscopy w ulcerations in Feb 2024), who presents to the ED with complaints of feeling weak and tired. Her daughter came to visit from [facility] because she had received a phone call from 1 of her mother's friends saying that her mother was not doing well. When her daughter arrived she realized that her mom truly was not doing well. She has multiple complaints, multiple issues that just do not seem to be getting worked out. The patient herself is a very vague historian. She admits to melena she has about 1 stool a day. She states she has also had some bright red blood per rectum in the last few weeks. She is a recovering alcoholic and has not relapsed on alcohol. She is prescribed lorazepam but admits that she is taking oral opiates that are not prescribed to her. She has apparently been seen at the dental clinic and needs urgent oral surgery. She has oral thrush. She had a CTA of her abdomen this evening which is negative for GI bleed but shows dilation of the pancreatic duct as well as dilation of the common bile duct to 1 cm with small gallstone seen. She is not having any abdominal pain. Nor does she have any hyperbilirubinemia. Her daughter notes that she is lost a fair amount of weight but no one seems to be able to qualify how much. As she is evaluated several times by Dr. Estrada he realizes that she does have altered mental status but unfortunately is not able to get a CT of the head immediately in the emergency department due to dye load from CTA of the abdomen. I am admitting her to observation status for decreased hemoglobin and suspicion for GI bleed and for altered mental status. Patient endorses DNR status from previous admissions. She states that her daughter would be her surrogate medical decision maker if she were unable to do so. She does not have a POLST. Meds/Allgy Home Medications Ambulatory Orders Medication Instructions Recorded Confirmed potassium chloride 20 mEq 20 meq PO DAILYWM #60 tabs 0 07/01/24 01/30/25 tablet,extended release(part/cryst) (Klor-Con M) valacyclovir 500 mg tablet 500 mg PO QDAY #90 tabs 12/2901/30/25 venlafaxine 150 mg 150 mg PO DAILY #90 caps 12/2901/30/25 capsule,extended release 24 hr fluticasone 250 mcg-salmeterol 50 1 inh inhalation BID #60 ea 11/07/24 01/30/25 mcg/dose blistr powdr for inhalation (Advair Diskus) hydrochlorothiazide 25 mg tablet 25 mg PO DAILY hypert ension #90 11/22/24 01/30/25 tabs cholecalciferol (vitamin D3) 50 50 mcg PO QDAY #90 cap s 11/27/24 01/30/25 mcg (2,000 unit) capsule amlodipine 5 mg tablet 5 mg PO BID 12/07/24 5 lisinopril 40 mg tablet 40 mg PO QDAY 12/07/2401/30 lorazepam 0.5 mg tablet 0.5 mg PO BID-TID PRN Anxiet y #65 01/08/25 01/30/25 tabs tizanidine 4 mg tablet 4 mg PO Q8H PRN muscle spast icity 01/16/25 01/30/25 #20 tabs nystatin 100,000 unit/mL oral 500,000 unit (5 mL) PO Q ID 14 days 01/30/25 01/30/25 suspension #280 mL nystatin 100,000 unit/mL oral 500,000 unit (5 mL) PO Q ID 14 days 01/30/25 01/30/25 suspension #280 mL omeprazole 40 mg capsule,delayed 40 mg PO QDAY #30 cap s 01/30/25 01/30/25 release Allergies Allergies Allergy/AdvReac Type Severity Reaction Status Date / Time codeine AdvReac Mild Nausea Verified 01/30/25 18:05 PFSH Active Problems All Active Problems (Updated 01/30/25 @ 21:26 by MELO Recio) Hypokalemia (Acute) Anemia (Acute) Encephalopathy acute (Acute) Thrush (Acute) Melena (Acute) History of alcohol abuse (Acute) Opioid abuse (Acute) Oral thrush (Acute) GI bleed (Acute) Severe anemia (Acute) Acute sinusitis (Acute) Neck pain (Acute) At risk for falls (Acute) Immunization counseling (Acute) Pedal edema (Acute) Screening for colorectal cancer (Acute) Poor dentition (Acute) Insomnia due to mental disorder (Acute) Apnea (Acute) Alcohol dependence in sustained full remission (Acute) Generalized anxiety disorder with panic attacks (Chronic) Agoraphobia (Chronic) COPD (chronic obstructive pulmonary disease) (Chronic) Polyarthralgia (Chronic) Peptic ulcer disease (Chronic) Osteoporosis (Chronic) Left ventricular hypertrophy by electrocardiogram (Chronic) Heart palpitations (Chronic) Chronic pain (Chronic) Knee pain, bilateral (Chronic) Kidney, malrotation (Chronic) Depression, major, recurrent, moderate (Chronic) HSV (herpes simplex virus) infection (Chronic) Tobacco dependence (Chronic 08/12/23) Raynaud's syndrome (Chronic 10/26/22) Essential hypertension (Chronic 01/11/23) Medical History Medical History (Updated 01/30/25 @ 21:26 by MELO Recio) Breast implant status Panic attack (10/26/22) Generalized anxiety disorder Upper GI bleed Ashwin ulcer Gastric ulcer Breast implant leak Surgical History Surgical History Abnormal findings on esophagogastroduodenoscopy (EGD) Upper GI bleed, 03/03/2024, Dr. Rees Family History Family History Mother Depressed Sister Leukemia Lung cancer Maternal grandmother Diabetes Social History Social History Smoking Status: Smoker current status unk Number of Years Smoked: 10 How many cigarettes a day do you smoke? (20 cigarettes=1 Pk): 20 Second hand tobacco smoke exposure: Yes Do you dip or chew tobacco?: No Do you vape?: No Patient requests smoking cessation consult: No Initiate information on smoking cessation: No Living arrangement: At home Living Condition: With friend(s) and Other Support Person: Yes Physical Activity: other Level: Assisted Do you feel safe in your home environment?: Yes History of physical, verbal, emotional, or financial abuse?: No ETOH Use: None Substance Use: denies use Are you sexually active?: No Retired: Yes Service: No POLST Patient has POLST: No POLST Questions POLST CPR Status: Do Not Attempt Resuscitation (DNAR) / Allow Natural Review of Systems Status of ROS: 10 or more systems reviewed and unremarkable except as noted in history and below Prior Level of Functionality: Independent Exam Exam Vital Signs: Vital Signs x48h Temp Pulse Pulse Resp BP BP Pulse Ox 01/30/25 22:15 36.9 C 87 24 171/91 H 94 01/30/25 21:49 91 167/91 H 91 L 01/30/25 20:36 94 16 161/89 H 91 L 01/30/25 18:42 100 21 162/92 H 93 01/30/25 17:57 37.2 C 105 H 16 175/109 H 95 Constitutional Ill-appearing female HENMT normocephalic, head/scalp atraumatic, external ears normal, nasal mucous membranes normal, oral mucous membranes abnormal (Oral thrush noted on the hard palate. I do not see any lesions on the oral) and dentition normal (Poor) Eyes conjunctivae normal Neck/C-Spine visual inspection normal and trachea midline Lymph no lymphadenopathy noted Chest inspection of chest normal Respiratory breath sounds equal bilaterally, normal respiratory effort and clear to auscultation bilaterally Decreased breath sounds at the bases Cardiovascular normal heart rate noted and regular rhythm noted Gastrointestinal abdomen soft to palpation and nontender to palpation Back/Pelvis spine normal to inspection Extremities normal to inspection and normal to palpation Neurology She falls asleep during the interview. She is oriented to person place and time. She is also oriented to the situation. Psychiatry oriented x3 and thought process normal Sleepy but not obtunded Skin skin color normal and no rash Conclusion/Plan Problem List (1) Encephalopathy acute: Plan: Acute encephalopathy which is likely multifactorial this patient is prescribed lorazepam. She has a positive drug screen for opiates which are not prescribed. I have reviewed her PDMP. Her encephalopathy could be due to substance use. Her encephalopathy could also be due to her anemia but it is not severe. Her baseline hemoglobin is 14 her hemoglobin this evening is to 10. Her encephalopathy could also be due to causes at is yet undiscovered. She will have a CT of the head [address] of the abdomen, at about 2 AM. I am admitting this patient to observation to further discern the cause of her encephalopathy. I will follow her hemoglobin serially. Consult surgery if needed. Dr. Son is aware of the patient. Until I know that her hemoglobins are stable I will leave her on a clear liquid diet. (2) Melena: Plan: She complains of 1 stool a day, she does have tarry sticky stools. She was evaluated for GI bleed in February 2024. Dr. Rees took the patient to the the GI lab she had upper endoscopy which revealed ulcerations. She was instructed to start on PPI therapy and Carafate. She reportedly did not fill these prescriptions. Dr. Rees had recommended follow-up endoscopy as well as lower endoscopy for colon cancer screening. The patient failed to follow through on these recommendations. (3) Anemia: Plan: She has had low iron in the past. She has had anemia with upper GI bleed in the past. I will add iron studies onto her a.m. labs. Hemoglobin in 6 hours, cbc in AM. (4) Thrush: Plan: This patient has white plaques on her hard palate on oral exam. I will start her on nystatin swish and swallow. (5) Opioid abuse: Plan: PDMP was reviewed. Patient has regular prescriptions for lorazepam, she does not have any prescriptions for opiate pain killers. Her urine toxicology is positive for both benzodiazepines and opiates. Fentanyl screen is negative. (6) History of alcohol abuse: Plan: Per the patient and her daughter she no longer drinks. She has been clean for many many years. Her ammonia level this evening is 44.3. I do not think her encephalopathy is due to liver failure. (7) Tobacco dependence: Plan: She admits to smoking 5 cigarettes a day. nicoderm PRN. (8) Hypokalemia: Plan: K is 3.2 I have ordered 20mEq this evening. repeat BMP in the AM. (9) COPD (chronic obstructive pulmonary disease): Plan: Her lungs are clear on exam this evening. I will resume her home medications. It looks like she takes Advair twice daily. (10) Essential hypertension: Plan: Home medications are amlodipine 5 mg twice daily, hydrochlorothiazide 25 mg daily, lisinopril 40 mg daily. I will hold these medications until medication reconciliation is complete. Plan I have spent 78 minutes in the care of this patient today. This includes time [id number], review and ordering of diagnostic imaging and laboratory studies and consultation with other providers. Lab Results Lab results reviewed: Yes 01/30/25 18:35 01/30/25 18:35 Core Measures DVT/VTE - Prophylaxis VTE/DVT Device ordered at admit?: Yes VTE/DVT Prophylaxis med ordered at admit?: No Not Ordered - Medical Reason: Contraindicated (GI bleed with anemia)
[2025-01-30] MEDS ORDERED: ACETAMINOPHEN 325 MG TABLET PO PRN (21:47)
[2025-01-30] MEDS ORDERED: ONDANSETRON 4 MG/2 ML VIAL IVP PRN (21:47)
[2025-01-30] MEDS: PANTOPRAZOLE 40 MG VIAL IVP SCH (22:12)
[2025-01-30] MEDS: NYSTATIN 500000 UNITS/5 ML UDC PO SCH (22:12)
[2025-01-30] MEDS: SODIUM CHLORIDE FLUSH 0.9% 10 ML SYRINGE IVP PRN (22:13)
[2025-01-30] MEDS: POTASSIUM CHLOR 10 MEQ/100 ML 10 MEQ/100 ML BAG IV SCH (22:13)
[2025-01-31] MEDS: SODIUM CHLORIDE FLUSH 0.9% 10 ML SYRINGE IVP SCH (00:13)
[2025-01-31 05:27] LABS: HCT - HEMATOCRIT 35.5 % (37.0-47.0); HGB - HEMOGLOBIN 10.8 g/dL (12.0-16.0); MEAN PLATELET VOLUME 8.2 fL (7.9-10.8); PLT - PLATELET COUNT 419 10^3/uL (130-450); RED CELL DISTRIBUTION WIDTH 15.4 % (12.0-15.0)
[2025-01-31 05:33] LABS: ABNORMAL LYMPHS % (MANUAL) 0 %; BASOPHILS # (MANUAL) 0.0 10^3/uL (0-0.1)
[2025-01-31 05:44] LABS: % IRON SATURATION 6.0 % (20-50); BUN - BLOOD UREA NITROGEN 7.0 mg/dL (6-20); CARBON DIOXIDE - CO2 29.0 mmol/L (21-32); CREATININE 0.4 mg/dL (0.6-1.3); GFR - MDRD 159.0 (>89)
[2025-01-31 06:53] LABS: BAND NEUTROPHILS % (MANUAL) 8 %; EOSINOPHILS # (MANUAL) 0.1 10^3/uL (0-0.7); LYMPHOCYTES # (MANUAL) 1.9 10^3/uL (1.5-3.5); LYMPHOCYTES % (MANUAL) 33 %; MONOCYTES # (MANUAL) 0.3 10^3/uL (0.0-1.0); NEUTROPHILS # (MANUAL) 3.4 10^3/uL (1.5-6.6); PLATELET ESTIMATE, MANUAL NORMAL (130-450,000) (NORMAL); PLATELET MORPHOLOGY NORMAL APPEARANCE (NORMAL); RBC MORPHOLOGY (MULTIPLE) NORMAL APPEARANCE (NORMAL); WBC MORPHOLOGY (MULTIPLE) NORMAL APPEARANCE (NORMAL)
--- NOTE | 2025-01-31 07:49 | CONSULTATION NOTE ---
Referring Provider Name of Referring Provider:: MELO Recio Consult Date: 01/30/25 Chief Complaint Chief Complaint Chief Complaint: Anemia and melena History of Present Illness Admitted From Admitted From:: Emergency department History Obtained From Records Reviewed: Yes History obtained from: Patient and chart Exam Limitations: None History of Present Illness HPI Comment/Other: Patient is a pleasant 69-year-old lady who was evaluated in room 2202 at [facility] MedSurg unit at the request of MELO Recio. The patient is a known alcoholic in remission. Importantly, the patient had an esophagogastroduodenoscopy performed by Dr. Debra Rees in February 2024 that showed a prepyloric ulcer as well as a Ashwin ulcer that were actively bleeding and these were injected. The patient was placed on proton pump inhibitors and the patient states that she finished the course of proton pump inhibitors. I explained to her that one does not finish a course of proton pump inhibitors much the same way that one does not finish a course of control pills. She laughed at this and stated "I understand." Review of the chart shows that she has not been doing well with weight loss and apparently taking opiate medication that has not been prescribed to her. Additionally and I am summarizing here she has multiple other comorbidities which MELO Recio lists in exacting detail. Review of her labs indicate that her hemoglobin hematocrit are down from her normal of about 14 and 44 to about 10 and 35. Her toxicology screen is positive for benzodiazepines which she is prescribed and opiates which she is not prescribed. Her alcohol level is 0. Meds/Allgy Home Medications Ambulatory Orders Medication Instructions Recorded Confirmed potassium chloride 20 mEq 20 meq PO DAILYWM #60 tabs 0 07/01/24 01/30/25 tablet,extended release(part/cryst) (Klor-Con M) valacyclovir 500 mg tablet 500 mg PO QDAY #90 tabs 12/2901/30/25 venlafaxine 150 mg 150 mg PO DAILY #90 caps 12/2901/30/25 capsule,extended release 24 hr fluticasone 250 mcg-salmeterol 50 1 inh inhalation BID #60 ea 11/07/24 01/30/25 mcg/dose blistr powdr for inhalation (Advair Diskus) hydrochlorothiazide 25 mg tablet 25 mg PO DAILY hypert ension #90 11/22/24 01/30/25 tabs cholecalciferol (vitamin D3) 50 50 mcg PO QDAY #90 cap s 11/27/24 01/30/25 mcg (2,000 unit) capsule amlodipine 5 mg tablet 5 mg PO BID 12/07/24 5 lisinopril 40 mg tablet 40 mg PO QDAY 12/07/2401/30 lorazepam 0.5 mg tablet 0.5 mg PO BID-TID PRN Anxiet y #65 01/08/25 01/30/25 tabs tizanidine 4 mg tablet 4 mg PO Q8H PRN muscle spast icity 01/16/25 01/30/25 #20 tabs nystatin 100,000 unit/mL oral 500,000 unit (5 mL) PO Q ID 14 days 01/30/25 01/30/25 suspension #280 mL nystatin 100,000 unit/mL oral 500,000 unit (5 mL) PO Q ID 14 days 01/30/25 01/30/25 suspension #280 mL omeprazole 40 mg capsule,delayed 40 mg PO QDAY #30 cap s 01/30/25 01/30/25 release Allergies Allergies Allergy/AdvReac Type Severity Reaction Status Date / Time codeine AdvReac Mild Nausea Verified 01/30/25 18:05 PFSH Active Problems All Active Problems (Updated 01/30/25 @ 21:26 by MELO Recio) Hypokalemia (Acute) Anemia (Acute) Encephalopathy acute (Acute) Thrush (Acute) Melena (Acute) History of alcohol abuse (Acute) Opioid abuse (Acute) Oral thrush (Acute) GI bleed (Acute) Severe anemia (Acute) Acute sinusitis (Acute) Neck pain (Acute) At risk for falls (Acute) Immunization counseling (Acute) Pedal edema (Acute) Screening for colorectal cancer (Acute) Poor dentition (Acute) Insomnia due to mental disorder (Acute) Apnea (Acute) Alcohol dependence in sustained full remission (Acute) Generalized anxiety disorder with panic attacks (Chronic) Agoraphobia (Chronic) COPD (chronic obstructive pulmonary disease) (Chronic) Polyarthralgia (Chronic) Peptic ulcer disease (Chronic) Osteoporosis (Chronic) Left ventricular hypertrophy by electrocardiogram (Chronic) Heart palpitations (Chronic) Chronic pain (Chronic) Knee pain, bilateral (Chronic) Kidney, malrotation (Chronic) Depression, major, recurrent, moderate (Chronic) HSV (herpes simplex virus) infection (Chronic) Tobacco dependence (Chronic 08/12/23) Raynaud's syndrome (Chronic 10/26/22) Essential hypertension (Chronic 01/11/23) Medical History Medical History (Updated 01/30/25 @ 21:26 by MELO Recio) Breast implant status Panic attack (10/26/22) Generalized anxiety disorder Upper GI bleed Ashwin ulcer Gastric ulcer Breast implant leak Surgical History Surgical History Abnormal findings on esophagogastroduodenoscopy (EGD) Upper GI bleed, 03/03/2024, Dr. Rees Family History Family History Mother Depressed Sister Leukemia Lung cancer Maternal grandmother Diabetes Social History Social History (Updated 01/30/25 @ 23:46 by MELO Recio) Smoking Status: Smoker current status unk Number of Years Smoked: 10 How many cigarettes a day do you smoke? (20 cigarettes=1 Pk): 20 Second hand tobacco smoke exposure: Yes Do you dip or chew tobacco?: No Do you vape?: No Patient requests smoking cessation consult: No Initiate information on smoking cessation: No Living arrangement: At home Living Condition: With friend(s) and Other Support Person: Yes Physical Activity: other Level: Assisted Do you feel safe in your home environment?: Yes History of physical, verbal, emotional, or financial abuse?: No ETOH Use: None Substance Use: denies use Are you sexually active?: No Retired: Yes Service: No POLST Patient has POLST: No Results Lab Results Lab results reviewed: Yes 01/31/25 05:04 01/31/25 05:04 Other Lab Results: Lab Results x24hrs 01/31/25 01/31/25 01/30/25 Range/Units 05:04 02:19 20:55 WBC 5.7 (4.8-10.8) x10^3/uL RBC 4.01 L (4.20-5.40) 10^6/uL Hgb 10.8 L 9.8 L (12.0-16.0) g/dL Hct 35.5 L (37.0-47.0) % MCV 88.5 (81.0-99.0) fL MCH 26.9 L (27.0-31.0) pg MCHC 30.4 L (32.0-36.0) g/dL RDW 15.4 H (12.0-15.0) % Plt Count 419 (130-450) 10^3/uL MPV 8.2 (7.9-10.8) fL Neut # (Auto) Not Reportable Lymph # (Auto) Not Reportable [place] # (Auto) Not Reportable Eos # (Auto) Not Reportable Baso # (Auto) Not Reportable Absolute Nucleated RBC Not Reportable Total Counted 100 Band Neuts % (Manual) 8 (0 - 10) % Reactive Lymphs % (Man) % Abnorm Lymph % (Manual) 0 % Nucleated RBC % Not Reportable Neutrophils # (Manual) 3.4 (1.5-6.6) 10^3/uL Lymphocytes # (Manual) 1.9 (1.5-3.5) 10^3/uL Monocytes # (Manual) 0.3 (0.0-1.0) 10^3/uL Eosinophils # (Manual) 0.1 (0-0.7) 10^3/uL Basophils # (Manual) 0.0 (0-0.1) 10^3/uL Differential Comment MANUAL DIFFERENTIAL WBC Morphology NORMAL APPEARANCE (NORMAL) Platelet Estimate NORMAL (130-450,000) (NORMAL) Platelet Morphology NORMAL APPEARANCE (NORMAL) RBC Morph Micro Appear NORMAL APPEARANCE (NORMAL) PT (9.9-12.6) secs INR (0.8-1.2) Sodium 136 (135-145) mmol/L Potassium 3.2 L (3.5-4.5) mmol/L Chloride 98 L (101-111) mmol/L Carbon Dioxide 29 (21-32) mmol/L Anion Gap 9.0 (6-13) BUN 7 (6-20) mg/dL Creatinine 0.4 L (0.6-1.3) mg/dL Estimated GFR (MDRD) 159 (>89) Glucose 89 (74-104) mg/dL Calcium 9.1 (8.5-10.3) mg/dL Iron 16 L (50-212) ug/dL TIBC 276 (250-450) ug/dL % Saturation 6 L (20-50) % Transferrin 197 L (203-362) mg/dL Total Bilirubin (0.2-1.0) mg/dL AST (10-42) IU/L ALT (10-60) IU/L Alkaline Phosphatase (42-121) IU/L Ammonia 44.3 (18-72) umol/L Total Protein (6.4-8.9) g/dL Albumin (3.2-5.5) g/dL Globulin (2.1-4.2) g/dL Albumin/Globulin Ratio (1.0-2.2) Lipase (11-82) U/L Vitamin B12 686 (180-914) pg/mL Folate 14.4 (5.90 - >24.8) ng/mL Urine Color Urine Clarity (CLEAR) Urine pH (5.0-7.5) PH Ur Specific [place] (1.002-1.030) Urine Protein (NEGATIVE) mg/dL Urine Glucose (UA) (NEGATIVE) mg/dL Urine Ketones (NEGATIVE) mg/dL Urine Occult Blood (NEGATIVE) Urine Nitrite (NEGATIVE) Urine Bilirubin (NEGATIVE) Urine Urobilinogen (NORMAL) E.U./dL Ur Leukocyte Esterase (NEGATIVE) Ur Microscopic Review Urine Culture Comments Urine Opiates Screen (NEGATIVE) Ur Buprenorphine Scrn (NEGATIVE) Ur Oxycodone Screen (NEGATIVE) Urine Methadone Screen (NEGATIVE) Urine Fentanyl Screen (NEGATIVE) Ur Barbiturates Screen (NEGATIVE) Ur Tricyclics Screen (NEGATIVE) Ur Phencyclidine Scrn (NEGATIVE) Ur Amphetamine Screen (NEGATIVE) U Methamphetamines Scrn (NEGATIVE) U Benzodiazepines Scrn (NEGATIVE) Urine Cocaine Screen (NEGATIVE) U Cannabinoids Screen (NEGATIVE) Ur Drug Screen Comment Ethyl Alcohol mg/dL Blood Type Antibody Screen 01/30/25 01/30/25 Range/Units 19:30 18:35 WBC 7.1 (4.8-10.8) x10^3/uL RBC 3.74 L (4.20-5.40) 10^6/uL Hgb 10.1 L (12.0-16.0) g/dL Hct 32.2 L (37.0-47.0) % MCV 86.1 (81.0-99.0) fL MCH 27.0 (27.0-31.0) pg MCHC 31.4 L (32.0-36.0) g/dL RDW 15.1 H (12.0-15.0) % Plt Count 422 (130-450) 10^3/uL MPV 7.8 L (7.9-10.8) fL Neut # (Auto) Not Reportable Lymph # (Auto) Not Reportable [place] # (Auto) Not Reportable Eos # (Auto) Not Reportable Baso # (Auto) Not Reportable Absolute Nucleated RBC Not Reportable Total Counted 100 Band Neuts % (Manual) 27 H (0 - 10) % Reactive Lymphs % (Man) 3 % Abnorm Lymph % (Manual) 0 % Nucleated RBC % Not Reportable Neutrophils # (Manual) 5.1 (1.5-6.6) 10^3/uL Lymphocytes # (Manual) 1.4 L (1.5-3.5) 10^3/uL Monocytes # (Manual) 0.5 (0.0-1.0) 10^3/uL Eosinophils # (Manual) 0.1 (0-0.7) 10^3/uL Basophils # (Manual) 0.0 (0-0.1) 10^3/uL Differential Comment MANUAL DIFFERENTIAL WBC Morphology (NORMAL) Platelet Estimate NORMAL (130-450,000) (NORMAL) Platelet Morphology NORMAL APPEARANCE (NORMAL) RBC Morph Micro Appear NORMAL APPEARANCE (NORMAL) PT 12.7 H (9.9-12.6) secs INR 1.1 (0.8-1.2) Sodium 133 L (135-145) mmol/L Potassium 3.2 L (3.5-4.5) mmol/L Chloride 95 L (101-111) mmol/L Carbon Dioxide 30 (21-32) mmol/L Anion Gap 8.0 (6-13) BUN 12 (6-20) mg/dL Creatinine 0.4 L (0.6-1.3) mg/dL Estimated GFR (MDRD) 159 (>89) Glucose 116 H (74-104) mg/dL Calcium 9.0 (8.5-10.3) mg/dL Iron (50-212) ug/dL TIBC (250-450) ug/dL % Saturation (20-50) % Transferrin (203-362) mg/dL Total Bilirubin 0.4 (0.2-1.0) mg/dL AST 14 (10-42) IU/L ALT 17 (10-60) IU/L Alkaline Phosphatase 84 (42-121) IU/L Ammonia (18-72) umol/L Total Protein 6.5 (6.4-8.9) g/dL Albumin 3.4 (3.2-5.5) g/dL Globulin 3.1 (2.1-4.2) g/dL Albumin/Globulin Ratio 1.1 (1.0-2.2) Lipase < 10 L (11-82) U/L Vitamin B12 (180-914) pg/mL Folate (5.90 - >24.8) ng/mL Urine Color YELLOW Urine Clarity CLEAR (CLEAR) Urine pH 5.0 (5.0-7.5) PH Ur Specific [place] 1.005 (1.002-1.030) Urine Protein NEGATIVE (NEGATIVE) mg/dL Urine Glucose (UA) NEGATIVE (NEGATIVE) mg/dL Urine Ketones NEGATIVE (NEGATIVE) mg/dL Urine Occult Blood NEGATIVE (NEGATIVE) Urine Nitrite NEGATIVE (NEGATIVE) Urine Bilirubin NEGATIVE (NEGATIVE) Urine Urobilinogen 0.2 (NORMAL) (NORMAL) E.U./dL Ur Leukocyte Esterase NEGATIVE (NEGATIVE) Ur Microscopic Review NOT INDICATED Urine Culture Comments NOT INDICATED Urine Opiates Screen POSITIVE H (NEGATIVE) Ur Buprenorphine Scrn NEGATIVE (NEGATIVE) Ur Oxycodone Screen NEGATIVE (NEGATIVE) Urine Methadone Screen NEGATIVE (NEGATIVE) Urine Fentanyl Screen Negative (NEGATIVE) Ur Barbiturates Screen NEGATIVE (NEGATIVE) Ur Tricyclics Screen NEGATIVE (NEGATIVE) Ur Phencyclidine Scrn NEGATIVE (NEGATIVE) Ur Amphetamine Screen NEGATIVE (NEGATIVE) U Methamphetamines Scrn NEGATIVE (NEGATIVE) U Benzodiazepines Scrn POSITIVE H (NEGATIVE) Urine Cocaine Screen NEGATIVE (NEGATIVE) U Cannabinoids Screen NEGATIVE (NEGATIVE) Ur Drug Screen Comment CUTOFF CONC BELOW: Ethyl Alcohol < 10.0 mg/dL Blood Type O NEGATIVE Antibody Screen NEGATIVE Diagnostic Imaging Results Diagnostic Imaging Results: positive Final report reviewed Review of Systems I woke the patient up from a deep sleep and her mentation was not such that I could perform a extensive review of systems. I will state that specifically she does not complain of any GI symptoms at this time. She denies any chest pain or significant shortness of breath. Exam Exam Vital Signs: Vital Signs x48h Temp Pulse Resp BP Pulse Ox 08/27/25 05:02 36.5 C 99 20 158/90 H 94 General: 69-year old female, appears much older than stated age, well developed, well nourished HEENT: Normocephalic, atraumatic, extraocular movement intact,sclera anicteric and not injected Neck: Supple without pain on palpation, mass or bruit Cardiac: Regular rate and rhythm without rub, gallop, or murmur Chest: Coarse bilaterally Abdomen: Soft, nontender, normoactive bowel sounds, no hepatomegaly, no splenomegaly Genitourinary: Deferred Rectal: Deferred Extremities: No gross neurovascular problem, no clubbing, cyanosis or edema Gait: Did not evaluate as the patient is in bed Psychiatric: Alert and oriented to person place and time, asks and answers questions appropriately, mood and affect appropriate, but somnolent as I woke her up from a deep sleep Conclusion/Plan Problem List (1) Encephalopathy acute: (2) Melena: (3) Anemia: (4) Thrush: (5) Opioid abuse: (6) History of alcohol abuse: (7) Tobacco dependence: (8) Hypokalemia: (9) COPD (chronic obstructive pulmonary disease): (10) Essential hypertension: Plan Patient is noncompliant with medications in the sense that she did not remain on her proton pump inhibitors. Off proton pump inhibitors and with a positive history of ulcers less than a year ago this is almost certainly the cause of her anemia. She has not in extremis. There is nothing to suggest that she needs a emergent EGD or colonoscopy. I think the best way to approach her care would be to stabilize her her other medical issues, have her stay on proton pump inhibitors and I would like to scope her in approximately 6 weeks time to check for healing and at that time perform a colonoscopy as well. This way she can have one EGD to check for healing as opposed to have an EGD to confirm what is already likely and then have another EGD to check for healing. Obviously, if there is any clinical deterioration with ongoing blood loss then an EGD would be performed for therapeutic purposes rather than diagnostic purposes. The best way to proceed would be to have the patient see me in the office in 5 weeks to perform the scopes in 6 weeks. I like to thank Sari Griffin very much for this opportunity to participate in this patient's care. CPT 13102 Lab Results Lab results reviewed: Yes 01/31/25 05:04 01/31/25 05:04 Diagnostic Imaging Results Diagnostic Imaging Results: positive Final report reviewed
[2025-01-31] MEDS: VENLAFAXINE ER 75 MG CAPSULE PO SCH (09:12)
[2025-01-31] MEDS: NICOTINE 21 MG PATCH TOP SCH (09:12)
--- NOTE | 2025-01-31 09:26 | Discharge Summary ---
"Discharge Summary Admit Date: 01/30/25 Discharge Date: 01/31/25 Discharging Provider: Dr. Avinash Galvez Primary Care Provider: Monik Mena Code Status: Do Not Attempt Resuscitation Discharge Facility Name: Home DIAGNOSES Discharge Diagnoses with Status of Each Condition: Acute metabolic encephalopathyresolved. Patient is back at her baseline. CT head final read is still pending. Melenahemoglobin is stable. She was found to have gastric ulcerations, but did not start Protonix. Patient was advised to start Protonix 40 mg twice daily. I have sent this to her pharmacy. She will then need to follow-up scoped and colonoscopy with general surgery. I have provided her with their phone number so she can make this appointment. Anemiastable. Opioid abuseshe is have been having severe mouth pain for which she is using unprescribed opioids. The nystatin swish and swallow have been prescribed by her dentist. She will then likely have tooth extractions. She needs very close follow-up with a dentist so she does not self medicate. History of EtOH abuse - Sober at this time. Tobacco dependence - Continue nicotine patch. Hypokalema - continued supplementation. COPD - continue home medications. Hypertension - continue home medications. HPI History of Present Illness: Per Sari Griffin: 69F smoker, hx COPD, anxiety, alcoholism in remission, upper GIB (s/p upper endoscopy w ulcerations in Feb 2024), who presents to the ED with complaints of feeling weak and tired. Her daughter came to visit from [facility] because she had received a phone call from 1 of her mother's friends saying that her mother was not doing well. When her daughter arrived she realized that her mom truly was not doing well. She has multiple complaints, multiple issues that just do not seem to be getting worked out. The patient herself is a very vague historian. She admits to melena she has about 1 stool a day. She states she has also had some bright red blood per rectum in the last few weeks. She is a recovering alcoholic and has not relapsed on alcohol. She is prescribed lorazepam but admits that she is taking oral opiates that are not prescribed to her. She has apparently been seen at the dental clinic and needs urgent oral surgery. She has oral thrush. She had a CTA of her abdomen this evening which is negative for GI bleed but shows dilation of the pancreatic duct as well as dilation of the common bile duct to 1 cm with small gallstone seen. She is not having any abdominal pain. Nor does she have any hyperbilirubinemia. Her daughter notes that she is lost a fair amount of weight but no one seems to be able to qualify how much. As she is evaluated several times by Dr. Estrada he realizes that she does have altered mental status but unfortunately is not able to get a CT of the head immediately in the emergency department due to dye load from CTA of the abdomen. I am admitting her to observation status for decreased hemoglobin and suspicion for GI bleed and for altered mental status. Patient endorses DNR status from previous admissions. She states that her daughter would be her surrogate medical decision maker if she were unable to do so. She does not have a POLST. 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 She was also told that her walk in clinic, that her hemoglobin was low at 7.3. She did endorse some dark stools at home. For the GI bleedwhen she presented, her hemoglobin was 10.1this morning it is 10.8. It is stable. She has had an EGD done in the past, which showed some gastric ulcers. 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 General surgery was consultedthey recommend oral Protonix twice daily. They would like to see her in about 5 weeks, and reschedule her EGD and colonoscopy. For ongoing dental pain, she was prescribed nystatin, which she states is alleviating the pain. After this, she will need to follow-up with a dentist for likely teeth extractions. Her altered mental status resolved by this morning. She was deemed suitable for discharge home. She will need close follow-up with the surgeon, primary care provider, as well as her dentist. ALLERGIES Allergies Allergy/AdvReac Type Severity Reaction Status Date / Time codeine AdvReac Mild Nausea Verified 01/30/25 18:05 MEDICATIONS Ambulatory Orders Medication Instructions Recorded Confirmed valacyclovir 500 mg tablet 500 mg PO QDAY #90 tabs 12/2901/30/25 venlafaxine 150 mg 150 mg PO DAILY #90 caps 12/2901/30/25 capsule,extended release 24 hr fluticasone 250 mcg-salmeterol 50 1 inh inhalation BID #60 ea 11/07/24 01/30/25 mcg/dose blistr powdr for inhalation (Advair Diskus) hydrochlorothiazide 25 mg tablet 25 mg PO DAILY hypert ension #90 11/22/24 01/30/25 tabs cholecalciferol (vitamin D3) 50 50 mcg PO QDAY #90 cap s 11/27/24 01/30/25 mcg (2,000 unit) capsule amlodipine 5 mg tablet 5 mg PO BID 12/07/24 5 lisinopril 40 mg tablet 40 mg PO QDAY 12/07/2401/30 lorazepam 0.5 mg tablet 0.5 mg PO BID-TID PRN Anxiet y #65 01/08/25 01/30/25 tabs tizanidine 4 mg tablet 4 mg PO Q8H PRN muscle spast icity 01/16/25 01/30/25 #20 tabs nystatin 100,000 unit/mL oral 500,000 unit (5 mL) PO Q ID 14 days 01/30/25 01/30/25 suspension #280 mL nystatin 100,000 unit/mL oral 500,000 unit (5 mL) PO Q ID 14 days 01/30/25 01/30/25 suspension #280 mL omeprazole 40 mg capsule,delayed 40 mg PO QDAY #30 cap s 01/30/25 01/30/25 release oxycodone 5 mg tablet 5 mg PO BID PRN pain #7 tabs 01/31/25 pantoprazole 40 mg tablet,delayed 40 mg PO BIDAC 6 wee ks #84 tabs 01/31/25 release potassium chloride 20 mEq 20 meq PO DAILYWM #60 tabs 0 01/31/25 tablet,extended release(part/cryst) (Klor-Con M) PHYSICAL EXAM AT DISCHARGE Vital Signs: Vital Signs x48h Temp Pulse Resp BP Pulse Ox 01/31/25 16:07 99.0 F 80 20 146/98 H 98 01/31/25 08:55 97.9 F 99 18 141/88 H 95 General Appearance: positive No acute distress, Alert and Anxious Eyes Bilateral: positive Normal inspection, PERRL and EOMI ENT: positive Other (Poor dentition, multiple caries, no obvious abscess) Neck: positive Nml inspection, Thyroid nml and No JVD Respiratory: positive Chest non-tender, No respiratory distress and Breath sounds nml; negative Wheezes, Rales or Rhonchi Cardiovascular: positive Regular rate & rhythm, No murmur and No gallop Peripheral Pulses: positive 2+ Abdomen: positive Non-tender, No organomegaly, Nml bowel sounds and No distention Back: positive Nml inspection; negative CVA tenderness (R) or CVA tenderness (L) Skin: positive Color nml, No rash and Warm Extremities: positive Non-tender, Full ROM, Nml appearance and No pedal edema Neurologic/Psychiatric: positive Oriented x3 and Mood/affect nml LABS 01/31/25 05:04 01/31/25 05:04 DIAGNOSTIC IMAGING Diagnostic Imaging Results: Final report reviewed FOLLOW UP Follow Up: Follow-up with primary care provider. Follow-up with dentist. Follow-up with general surgeon. TIME SPENT Time Spent in Discharge (Minutes): 35 Discharge Plan Discharge Patient Disposition: 06 Home Health Service Condition: Stable Prescriptions: New pantoprazole 40 mg Tablet,Delayed Release (Dr/Ec) 40 mg PO BIDAC 42 Days Qty: 84 0RF oxycodone 5 mg tablet 5 mg PO BID PRN (Reason: pain) Qty: 7 0RF Continued hydrochlorothiazide 25 mg tablet 25 mg PO DAILY Qty: 90 0RF Rx Instructions: Take 1 tablet by mouth once daily potassium chloride [Klor-Con M20] 20 mEq Tablet,Er Particles/Crystals 20 meq PO DAILYWM Qty: 60 0RF Rx Instructions: take 1 tab daily with food venlafaxine 150 mg capsule,extended release 24hr 150 mg PO DAILY Qty: 90 4RF valacyclovir 500 mg tablet 500 mg PO QDAY Qty: 90 4RF amlodipine 5 mg tablet 5 mg PO BID lisinopril 40 mg tablet 40 mg PO QDAY lorazepam 0.5 mg tablet 0.5 mg PO BID-TID MDD 1 mg PRN (Reason: Anxiety) Qty: 65 2RF Patient Comments: Patient states she takes one in the morning, and one around 2pm. Rx Instructions: Take 1 tablet by mouth twice a day as needed anxiety/panic. May take third dose for sleep infrequently. Not to exceed 3 tablets daily. nystatin 100,000 unit/mL suspension 500,000 unit PO QID 14 Days Qty: 280 0RF Patient Comments: hasn't started yet Rx Instructions: administer 1/2 of dose in each side of the mouth nystatin 100,000 unit/mL suspension 500,000 unit PO QID 14 Days Qty: 280 0RF Patient Comments: hasn't started yet Rx Instructions: administer 1/2 of dose in each side of the mouth omeprazole 40 mg capsule,delayed release(DR/EC) 40 mg PO QDAY Qty: 30 2RF fluticasone propion-salmeterol [Advair Diskus] 250-50 mcg/dose blister with device 1 inh inhalation BID Qty: 60 11RF cholecalciferol (vitamin D3) 50 mcg (2,000 unit) capsule 50 mcg PO QDAY Qty: 90 3RF tizanidine 4 mg tablet 4 mg PO Q8H PRN (Reason: muscle spasticity) Qty: 20 0RF Diet: Regular Health Concerns: You came in for anemia and significant mouth pain. For your anemia, we monitored your blood levels overnight. They have stabilized now. As discussed, you will need close follow-up with the outpatient general surgeon to complete an EGD and colonoscopy. I would like you to continue your Protonix 40 mg twice a day. I would like you to follow-up with the general surgeon in 4 to 5 weeks. If you do not hear from them, please call their office to make an appointment. They will then discuss next steps on when to schedule this procedure for you. For your mouth pain, please continue the nystatin swish and swallow as prescribed. Please continue close follow-up with the [facility] surgeon as well as the general dentist that you have been seeing. Likely, you will need to have some of these teeth extracted. Please continue to follow-up closely with your primary care provider. I also see that you use a steroid inhaler for your COPD. After using this, please make sure that you are rinsing out your mouth because this can lead to worsening of this thrush. I have also put in an order for home health for some extra support at home. They should be coming by to do an initial intake. We are glad you are feeling better, thanks for letting us take care of you. Print Language: Serbian Stand Alone Forms: PCP List Follow-up Care: Monik Mena ARNP [Primary Care Provider, Family Practice] Benja Son MD [Provider Admit Priv/Credential, Surgery, General] - 4 Weeks Vitals documented within 30 minutes of discharge?: Yes"
[2025-01-31] MEDS: PANTOPRAZOLE 40 MG TABLET PO SCH (09:42)
[2025-01-31] MEDS: POTASSIUM CHLORIDE 20 MEQ TABLET PO ONE (09:42)
[2025-01-31] MEDS: oxyCODONE 5 MG TABLET PO PRN (11:08)
--- NOTE | 2025-01-31 14:55 | CT Report ---
PROCEDURE: CT Head WO INDICATIONS: AMS TECHNIQUE: CT of the head was performed, without intravenous contrast. Reformats: Coronal and sagittal. For radiation dose reduction, the following was used: automated exposure control, adjustment of mA and/or kV according to patient size. COMPARISON: None. FINDINGS: Image quality: Diagnostic. CSF spaces: Basal cisterns are patent. No extra-axial fluid collections. Ventricles are normal in size and shape. Brain: No midline shift. No intracranial mass effect or hemorrhage. Pacheco- white matter interface is normal. Age appropriate volume loss and periventricular white matter hypoattenuation, likely chronic ischemic change. Skull and face: Calvarium and visualized facial bones are intact, without suspicious lesions. Sinuses: Visualized sinuses and mastoids are clear. IMPRESSION: No acute intracranial pathology. Reviewed by: Benjamin Basilio MD on 01/31/2025 2:54 PM PDT Approved by: Benjamin Basilio MD on 01/31/2025 2:54 PM PDT Station ID: [id number]
[2025-01-31 16:12] VITALS: BP 146/98; TEMP 99; O2SAT 98
[2025-01-31] MEDS ORDERED: FORMOTEROL FUMARATE NEB 20 MCG/2 ML INH SCH (19:00)
[2025-01-31] MEDS ORDERED: BUDESONIDE 0.5 MG/2 ML NEB INH SCH (19:00)
== END 2025-01-31 16:10 | disposition home health service (06) ==
LOC: ED 17:42 → MS2 17:42
PROVIDERS: ADMIT Physician Assistant Medical; ATTEND Physician Assistant Medical

== ENCOUNTER 2025-03-19 16:35 | Inpatient (IN) ==
--- OUTSIDE RECORDS SUMMARY | 2025-03-19 17:02 | EXTERNAL MEDICAL SUMMARY RPT | Continuity of Care Document ---
Author Organization [place] Address [address] [place] [id number] Phone Problems date description facility 2025-01-08 15:33 Generalized anxiety disorder [facility] 2025-01-16 18:45 Cervicalgia [facility] 2025-01-19 10:15 Other malaise [facility] 2025-01-30 15:44 Melena [facility] 2025-01-30 18:05 Candidal stomatitis [facility] 2025-01-30 18:05 Anemia, unspecified [facility] 2025-01-30 18:05 Alcohol abuse, in remission [facility] 2025-01-30 18:05 Opioid abuse, uncomplicated [facility] 2025-01-30 18:05 Other chronic pain [facility] 2025-01-30 18:05 Essential (primary) hypertensio n [facility] 2025-01-30 18:05 [facility] 2025-01-30 21:30 Encephalopathy, unspecified [facility] 2025-01-30 21:48 Encephalopathy, unspecified [facility] 2025-01-30 21:51 Encephalopathy, unspecified [facility] 2025-01-30 22:26 Encephalopathy, unspecified [facility] 2025-01-31 03:56 Candidal stomatitis [facility] 2025-01-31 03:56 Anemia, [facility] 2025-01-31 03:56 Hypokalemia [facility] 2025-01-31 03:56 Alcohol abuse, in remission [facility] 2025-01-31 03:56 Opioid abuse, uncomplicated [facility] 2025-01-31 03:56 Nicotine dependence, unspecifie d, uncomplicated [facility] 2025-01-31 03:56 Encephalopathy, unspecified [facility] 2025-01-31 03:56 Essential (primary) hypertensio n [facility] 2025-01-31 03:56 Chronic obstructive pulmonary d isease, unspecified [facility] 2025-01-31 03:56 Melena [facility] 2025-01-31 07:58 Candidal stomatitis [facility] 2025-01-31 07:58 Anemia, unspecified [facility] 2025-01-31 07:58 Hypokalemia [facility] 2025-01-31 07:58 Alcohol abuse, in remission [facility] 2025-01-31 07:58 Opioid abuse, uncomplicated [facility] 2025-01-31 07:58 Nicotine dependence, unspecifie d, uncomplicated [facility] 2025-01-31 07:58 Encephalopathy, unspecified [facility] 2025-01-31 07:58 [facility] 07:58 Chronic obstructive pulmonary d isease, unspecified [facility] 2025-01-31 07:58 Melena [facility] 2025-01-31 08:34 [facility] 2025-01-31 08:34 Anemia, unspecified [facility] 2025-01-31 08:34 Hypokalemia [facility] 2025-01-31 08:34 Alcohol abuse, in remission [facility] 2025-01-31 08:34 Opioid abuse, uncomplicated [facility] 2025-01-31 08:34 Nicotine dependence, unspecifie d, uncomplicated [facility] 2025-01-31 08:34 Encephalopathy, unspecified [facility] 2025-01-31 08:34 Essential (primary) hypertensio [facility] 2025-01-31 08:34 Chronic obstructive pulmonary d isease, unspecified [facility] 2025-01-31 08:34 Melena [facility] 2025-01-31 09:11 Candidal stomatitis [facility] 2025-01-31 09:11 Anemia, unspecified [facility] 2025-01-31 09:11 Hypokalemia [facility] 2025-01-31 09:11 Alcohol abuse, in remission [facility] 2025-01-31 09:11 Opioid abuse, uncomplicated [facility] 2025-01-31 09:11 Nicotine dependence, unspecifie d, uncomplicated [facility] 2025-01-31 09:11 Nicotine dependence, cigarettes , with withdrawal [facility] 2025-01-31 09:11 Anxiety disorder, unspecified [facility] 2025-01-31 09:11 Encephalopathy, unspecified [facility] 2025-01-31 09:11 Essential (primary) hypertensio n [facility] 2025-01-31 09:11 Viral pneumonia, unspecified [facility] 2025-01-31 09:11 Unspecified bacterial pneumonia [facility] 2025-01-31 09:11 Chronic obstructive pulmonary disease with (acute) lower respiratory infection [facility] 2025-01-31 09:11 Chronic obstructive pulmonary disease with (acute) exacerbation [facility] 2025-01-31 09:11 Chronic obstructive pulmonary d isease, unspecified [facility] 2025-01-31 09:11 Acute respiratory failure with hypoxia [facility] 2025-01-31 09:11 Melena [facility] 2025-01-31 09:11 Pain in unspecified joint [facility] 2025-01-31 09:11 Cough, unspecified [facility] 2025-01-[facility] 09:[address] [facility] 2025-01-31 09:11 Hypoxemia [facility] 2025-01-31 09:26 Candidal stomatitis [facility] 2025-01-31 09:26 Anemia, unspecified [facility] 2025-01-31 09:26 Hypokalemia [facility] 2025-01-31 09:26 Alcohol abuse, in remission [facility] 2025-01-31 09:26 Opioid abuse, uncomplicated [facility] 2025-01-31 09:26 Nicotine dependence, unspecifie d, uncomplicated [facility] 2025-01-31 09:26 Encephalopathy, unspecified [facility] 2025-01-31 09:26 Essential (primary) hypertensio n [facility] 2025-01-31 09:26 Chronic obstructive pulmonary d isease, unspecified [facility] 2025-01-31 09:26 Melena [facility] 2025-01-31 11:39 [facility]idal stomatitis [facility] 2025-01-31 11:39 Anemia, unspecified [facility] 2025-01-31 11:39 Hypokalemia [facility] 2025-01-31 11:39 Alcohol abuse, in remission [facility] 2025-01-31 11:39 Opioid abuse, uncomplicated [facility] 2025-01-31 11:39 Nicotine dependence, unspecifie d, [facility] 2025-01-31 11:39 Encephalopathy, unspecified [facility] 2025-01-31 11:39 Essential (primary) [facility] 2025-01-31 11:39 Chronic obstructive pulmonary d isease, unspecified [facility] 2025-01-31 [facility]:[address] [facility] 2025-01-31 11:46 Anemia, unspecified [facility] 2025-01-31 11:46 Hypokalemia [facility] 2025-01-31 11:46 Alcohol abuse, in remission [facility] 2025-01-31 11:46 Opioid abuse, uncomplicated [facility] 2025-01-31 11:46 Nicotine dependence, unspecifie d, uncomplicated [facility] 2025-01-31 11:46 Encephalopathy, unspecified [facility] 2025-01-31 11:46 Essential (primary) hypertensio [facility] 2025-01-31 11:46 Chronic obstructive pulmonary d isease, unspecified [facility] 2025-01-31 11:46 Melena [facility] 2025-01-31 11:54 Candidal stomatitis [facility] 2025-01-31 11:54 Anemia, unspecified [facility] 2025-01-31 11:54 Hypokalemia [facility] 2025-01-31 11:54 Alcohol abuse, in remission [facility] 2025-01-31 11:54 Opioid abuse, uncomplicated [facility] 2025-01-31 11:54 Nicotine dependence, unspecifie d, uncomplicated [facility] 2025-01-31 11:54 Encephalopathy, unspecified [facility] 2025-01-31 11:54 Essential (primary) hypertensio n [facility] 2025-01-31 11:54 Chronic obstructive pulmonary d isease, unspecified [facility] 2025-01-31 11:54 Melena [facility] 2025-01-31 16:[address] 2025-01-31 16:51 Anemia, unspecified [facility] 2025-01-31 16:51 Hypokalemia [facility] 2025-01-31 16:51 Alcohol abuse, in remission [facility] 2025-01-31 16:51 Opioid abuse, uncomplicated [facility] 2025-01-31 16:51 Nicotine dependence, unspecifie d, [facility] 2025-01-31 16:51 Other chronic pain [facility] 2025-01-31 16:51 Encephalopathy, unspecified [facility] 2025-01-31 16:51 Essential (primary) hypertensio [facility] 2025-01-31 16:51 Chronic obstructive pulmonary d isease, unspecified [facility] 2025-01-31 16:51 Disorder of teeth an d supporting structures, unspecified [facility] 2025-01-31 16:51 Melena [facility] 2025-01-31 17:54 Candidal stomatitis [facility] 2025-01-31 17:54 Anemia, unspecified [facility] 2025-01-31 17:54 Hypokalemia [facility] 2025-01-31 17:54 Alcohol abuse, in remission [facility] 2025-01-31 17:54 Opioid abuse, uncomplicated [facility] 2025-01-31 17:54 Nicotine dependence, unspecifie d, uncomplicated [facility] 2025-01-31 17:54 Other chronic pain [facility] 2025-01-31 17:54 Encephalopathy, unspecified [facility] 2025-01-31 17:54 Essential (primary) hypertensio n [facility] 2025-01-31 17:54 Chronic obstructive pulmonary d isease, unspecified [facility] 2025-01-31 17:54 Disorder of teeth an d supporting structures, unspecified [facility] 2025-01-31 17:54 Melena [facility] 2025-01-31 17:55 Candidal stomatitis [facility] 2025-01-31 17:55 Anemia, unspecified [facility] 2025-01-31 17:55 Hypokalemia [facility] 2025-01-31 17:55 Alcohol abuse, in remission [facility] 2025-01-31 17:55 Opioid abuse, uncomplicated [facility] 2025-01-31 17:55 Nicotine dependence, unspecifie d, uncomplicated [facility] 2025-01-31 17:55 Other chronic pain [facility] 2025-01-31 17:55 Encephalopathy, unspecified [facility] 2025-01-31 17:55 Essential (primary) hypertensio n [facility] 2025-01-31 17:55 Chronic obstructive pulmonary d isease, unspecified [facility] 2025-01-31 17:55 Disorder of teeth an d supporting structures, unspecified [facility] 2025-01-31 17:55 Melena [facility] 2025-02-02 09:07 Candidal stomatitis [facility] 2025-02-02 09:07 Anemia, unspecified [facility] 2025-02-02 09:07 Hypokalemia [facility] 2025-02-02 09:07 Alcohol abuse, in remission [facility] 2025-02-02 09:07 Opioid abuse, uncomplicated [facility] 2025-02-02 09:07 Nicotine dependence, unspecifie d, uncomplicated [facility] 2025-02-02 09:07 Other chronic pain [facility] 2025-02-02 09:07 Encephalopathy, unspecified [facility] 2025-02-02 09:07 Essential (primary) hypertensio n [facility] 2025-02-02 09:07 Chronic obstructive pulmonary d isease, unspecified [facility] 2025-02-02 09:07 Disorder of teeth an d supporting structures, [facility] 2025-02-02 09:07 Melena [facility] 2025-02-02 09:07 Dizziness and giddiness [facility] 2025-02-02 09:07 Weakness [facility] 2025-02-02 09:18 Candidal stomatitis [facility] 2025-02-02 09:18 Anemia, unspecified [facility] 2025-02-02 09:18 Hypokalemia [facility] 2025-02-02 09:18 Alcohol abuse, in remission [facility] 2025-02-02 09:18 Opioid abuse, uncomplicated [facility] 2025-02-02 09:18 Nicotine dependence, unspecifie d, [facility] 2025-02-02 09:18 Other chronic pain [facility] 2025-02-02 09:18 Encephalopathy, unspecified [facility] 2025-02-02 09:18 Essential (primary) hypertensio n [facility] 2025-02-02 09:18 Chronic obstructive pulmonary d isease, unspecified [facility] 2025-02-02 09:18 Disorder of teeth an d supporting structures, [facility] 2025-02-02 09:18 Melena [facility] 2025-02-02 09:18 Dizziness and giddiness [facility] 2025-02-02 09:18 Weakness [facility] 2025-02-19 18:54 Contusion of left hand, initial encounter [facility] 2025-02-19 18:54 [facility] 19:02 Contusion of left hand, initial encounter [facility] 2025-02-19 19:02 Unspecified fall, initial encou [facility] 2025-02-20 13:49 Contusion of left hand, initial encounter [facility] 2025-02-20 13:49 Unspecified fall, initial encou [facility] 2025-02-21 00:03 Contusion of left hand, initial encounter [facility] 2025-02-21 00:03 Unspecified fall, initial encou [facility] 2025-02-21 09:16 Age-related osteopor osis without current pathological fracture [facility] 2025-02-21 09:33 Age-related osteopor osis without current pathological fracture [facility] 2025-02-21 13:25 Age-related osteopor osis without current pathological fracture [facility] 2025-02-23 11:10 Contusion of left hand, initial encounter [facility] 2025-03-06 13:08 Hypokalemia [facility] 2025-03-06 13:08 Alcohol dependence, in remissio n [facility] 2025-03-06 13:08 Sedative, hypnotic o r anxiolytic dependence, uncomplicated [facility] 2025-03-06 13:08 Nicotine dependence, unspecifie d, uncomplicated [facility] 2025-03-06 13:08 Nicotine dependence, cigarettes , with withdrawal [facility] 2025-03-06 13:08 Major depressive disorder, recu rrent, moderate [facility] 2025-03-06 13:08 Panic disorder [episodic paroxy smal anxiety] [facility] 2025-03-06 13:08 Generalized anxiety disorder [facility] 2025-03-06 13:08 Anxiety disorder, unspecified [facility] 2025-03-06 13:08 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 [facility] 2025-03-06 13:08 Essential (primary) hypertensio n [facility] 2025-03-06 13:08 Viral pneumonia, unspecified [facility] 2025-03-06 13:08 Unspecified bacterial pneumonia [facility] 2025-03-06 13:08 Chronic obstructive pulmonary disease with (acute) lower respiratory infection [facility] 2025-03-06 13:08 Chronic obstructive pulmonary disease with (acute) exacerbation [facility] 2025-03-06 13:08 Acute respiratory failure with hypoxia [facility] 2025-03-06 13:08 Pain in unspecified joint [facility] 2025-03-06 13:08 Cough, unspecified [facility] 2025-03-06 13:08 [facility]25-[facility] 13:08 Hypoxemia [facility] 2025-03-06 13:08 Other senior care (current) drug therapy [facility] 2025-03-06 13:[address] [facility] 2025-03-08 16:40 Hypokalemia [facility] 2025-03-08 16:40 Encounter for screen ing for malignant neoplasm of colon [facility] 2025-03-08 16:40 Encounter for screen ing for malignant neoplasm of rectum [facility] 2025-03-08 16:40 Encounter for immunization [facility] doForms Results/Labs test date facility value unit notes Result panel 1 LIPASE 2025-01-30 18:35 [email or web address] < 10 u/l As of December 2022 testing method has changed, this may include reference ranges. ETOH - ETHANOL 2025-01-30 18:35 [employer] < 10.0 mg/dl Blood Alcohol Levels Level Sporadic Drinkers Chronic drinkers ===== === 100 mg/dL Legally intoxicated* Minimal signs 200-250 mg/dL Alertness lost, Effort needed to becoming lethargic maintain emotional and motor control 300-350 mg/dL Stupor to coma Drowsy and slow >500 mg/dL Possible Coma *The legal definition of intoxication varies. This assy is for medical decision making only. As of December 2022 testing method has changed, this may include reference ranges. ABNORMAL LYMPHS % (MANUAL) 2025-01-30 18:35 [employer] 0 % (missing) BASOPHILS # (MANUAL) 2025-01-30 18:35 [employer] 0.0 10 3/ul (missing) EOSINOPHILS # (MANUAL) 2025-01-30 18:35 [employer] 0.1 10 3/ul (missing) BILIRUBIN,TOTAL 2025-01-30 18:35 [employer] 0.4 mg/dl As of December 2022 testing method has changed, this may include reference ranges. CREATININE 2025-01-30 18:35 [employer] 0.4 mg/dl As of December 2022 testing method has changed, this may include reference ranges. MONOCYTES # (MANUAL) 2025-01-30 18:35 [employer] 0.5 10 3/ul (missing) ALBUMIN/GLOBULIN RATIO 2025-01-30 18:35 [employer] 1.1 (missing ) (missing) INR 2025-01-30 18:35 [employer] 1.1 (missing ) Oral Anticoagulant Indication INR range Venous Thrombosis, P.E. 2.0 - 3.0 Mechanical Valve 2.5 - 3.5 LYMPHOCYTES # (MANUAL) 2025-01-30 18:35 [employer] 1.4 10 3/ul (missing) HGB - HEMOGLOBIN 2025-01-30 18:35 [employer] 10.1 g/dl (missing) TOTAL CELLS COUNTED 2025-01-30 18:35 [employer] 100 (missing ) (missing) GLUCOSE 2025-01-30 18:35 [employer] 116 mg/dl As of December 2022 testing method has changed, this may include reference ranges. BUN - BLOOD UREA NITROGEN 2025-01-30 18:35 [employer] 12 mg/dl As of December 2022 testing method has changed, this may include reference ranges. PT - PROTHROMBIN TIME 2025-01-30 18:35 [employer] 12.7 secs (missing) SODIUM 2025-01-30 18:35 [employer] 133 mmol/l (missing) AST ASPARTATE AMINOTRANSFERASE 2025-01-30 18:35 [employer] 14 iu/l As of December 2022 testing method has changed, this may include reference ranges. RED CELL DISTRIBUTION WIDTH 2025-01-30 18:35 [employer] 15.1 % (missing) GFR - MDRD 2025-01-30 18:35 [employer] 159 (missing ) The IDFL-traceable MDRD Study Equation has been validated extensively in and populations between the ages of 18 and 70 with impaired kidney function (eGFR < 60 mL/min/1.73m2) and has shown good performance for patients with all common causes of kidney disease. Although this equation has not been validated for patients older than 70, an MDRD-derived eGFR may still be a useful tool for providers caring for patients older than 70. References: http://www.nkdep .nih.gov/lab-bee luation/gfr/crea tinine-stand ardization, last updated August 2011. ALT ALANINE AMINOTRANSFERASE 2025-01-30 18:35 [employer] 17 iu/l As of December 2022 testing method has changed, this may include reference ranges. BAND NEUTROPHILS % (MANUAL) 2025-01-30 18:35 [facility] 27 % (missing) MEAN CORPUSCULAR HEMOGLOBIN 2025-01-30 18:35 [employer] 27.0 pg (missing) REACTIVE LYMPHS % (MANUAL) 2025-01-30 18:35 [employer] 3 % (missing) GLOBULIN 2025-01-30 18:35 [facility] 3.1 g/dl (missing) POTASSIUM 2025-01-30 18:35 [employer] 3.2 mmol/l As of December 2022 testing method has changed, this may include reference ranges. ALBUMIN 2025-01-30 18:35 [employer] 3.4 g/dl As of December 2022 testing method has changed, this may include reference ranges. RED BLOOD COUNT 2025-01-30 18:35 [employer] 3.74 10 6/ul (missing) CARBON DIOXIDE - CO2 2025-01-30 18:35 [employer] 30 mmol/l As of December 2022 testing method has changed, this may include reference ranges. MEAN CORPUSCULAR HGB CONC 2025-01-30 18:35 [facility] 31.4 g/dl (missing) HCT - HEMATOCRIT 2025-01-30 18:35 [email or web address] 32.2 % (missing) PLT - PLATELET COUNT 2025-01-30 18:35 [employer] [employer] 422 10 3/ul (missing) NEUTROPHILS # (MANUAL) 2025-01-30 18:35 [facility] 5.1 10 3/ul (missing) TOTAL PROTEIN 2025-01-30 18:35 [email or web address] 6.5 g/dl As of December 2022 testing method has changed, this may include reference ranges. WHITE BLOOD COUNT 2025-01-30 18:35 [email or web address] 7.1 x10 3/ul (missing) MEAN PLATELET VOLUME 2025-01-30 18:35 [email or web address] 7.8 fl (missing) ANION GAP 2025-01-30 18:35 [email or web address] 8.0 (missing ) (missing) ALKALINE PHOSPHATASE 2025-01-30 18:35 [facility] 84 iu/l As of December 2022 testing method has changed, this may include reference ranges. MEAN CORPUSCULAR VOLUME 2025-01-30 18:35 [facility] 86.1 fl (missing) CALCIUM 2025-01-30 18:35 [facility] 9.0 mg/dl As of December 2022 testing method has changed, this may include reference ranges. CHLORIDE 2025-01-30 18:35 [email or web address] 95 mmol/l As of December 2022 testing method has changed, this may include reference ranges. DIFFERENTIAL COMMENT 2025-01-30 18:35 [employer] MANUAL DIFFERENTIAL (missing ) (missing) PLATELET ESTIMATE, MANUAL 2025-01-30 18:35 [email or web address] NORMAL (130-450,000) (missing ) (missing) PLATELET MORPHOLOGY 2025-01-30 18:35 [email or web address] NORMAL APPEARANCE (missing ) (missing) RBC MORPHOLOGY (MULTIPLE) 2025-01-30 18:35 [employer] NORMAL APPEARANCE (missing ) (missing) Result panel 2 UROBILINOGEN,URINE 2025-01-30 19:30 [email or web address] 0.2 (NORMAL) e.u./dl (missing) SPECIFIC GRAVITY,URINE 2025-01-30 19:30 [employer] 1.005 (missing) (missing) PH,URINE 2025-01-30 19:30 [email or web address] 5.0 ph (missing) CLARITY,URINE 2025-01-30 19:30 [employer] CLEAR (missing) (missing) MUDS CUTOFF CONCENTRATIONS 2025-01-30 19:30 [email or web address] CUTOFF CONC BELOW: (missing) [facility] uses the PROFILE-V [employer] Drugs of Abuse Test System. It detects drug classes at the following cutoff concentrations: AMP Amphetamine (d-Amphetamine) 500 ng/mL BAR Barbiturates (Butalbital) 200 ng/mL BZO Benzodiazepines (Nordiazepam) 150 ng/mL BUP Buprenorphine (Buprenorphine) 10 ng/mL SIMON Cocaine (Benzoylecgonine) 150 ng/mL MAMP Methamphetamine (d-Methamphetamine ) 500 ng/mL MTD Methadone (Methadone) 200 ng/mL OPI Opiates (Morphine) 100 ng/mL OXY Oxycodone (Oxycodone) 100 ng/mL PCP Phencyclidine (Phencyclidine) 25 ng/mL BUP Buprenorphine (Buprenorphine) 10 ng/mL THC Cannabinoids (36-xex-3-carboxy- 9-THC) 50 ng/mL TCA Tricyclic Antidepressants (Desipramine) 300 ng/mL All drug screen results are unconfirmed. Results are to be used for medical (i.e. treatment) purposes only. Unconfirmed screening results must not be used for non-medical purposes (e.g., employment testing, legal testing). AMPHETAMINE SCREEN,URINE 2025-01-30 19:30 [employer] NEGATIVE (missing) (missing) BARBITURATE SCREEN,UR 2025-01-30 19:30 [employer] NEGATIVE (missing) (missing) BUPRENORPHINE SCREEN, URINE 2025-01-30 19:30 [employer] NEGATIVE (missing) (missing) COCAINE SCREEN URINE 2025-01-30 19:30 [employer] NEGATIVE (missing) (missing) LEUKOCYTE ESTERASE, URINE 2025-01-30 19:30 [email or web address] NEGATIVE (missing) (missing) METHADONE SCREEN, URINE 2025-01-30 19:30 [employer] NEGATIVE (missing) (missing) METHAMPHETAMINES SCREEN, URINE 2025-01-30 19:30 [employer] NEGATIVE (missing) (missing) NITRITE,URINE 2025-01-30 19:30 [facility] NEGATIVE (missing) (missing) OCCULT BLOOD,URINE 2025-01-30 19:30 [email or web address] NEGATIVE (missing) (missing) OXYCODONE SCREEN, URINE 2025-01-30 19:30 [facility] NEGATIVE (missing) (missing) PHENCYCLIDINE SCREEN, URINE 2025-01-30 19:30 [facility] NEGATIVE (missing) (missing) THC CANNABINOID SCREEN, URINE 2025-01-30 19:30 [email or web address] NEGATIVE (missing) (missing) TRICYCLIC ANTIDEPRESSANT,URINE 2025-01-30 19:30 [facility] NEGATIVE (missing) (missing) BILIRUBIN,URINE 2025-01-30 19:30 [facility] NEGATIVE (missing) Bilirubin can be influenced by color interference. Please correlate positive results with clinical presentation GLUCOSE, URINE (UA) 2025-01-30 19:30 [employer] NEGATIVE mg/dl (missing) KETONES,URINE (UA) 2025-01-30 19:30 [employer] NEGATIVE mg/dl (missing) PROTEIN,URINE 2025-01-30 19:30 [facility] NEGATIVE mg/dl (missing) UR CULTURE IF IND 2025-01-30 19:30 [employer] NOT INDICATED (missing) (missing) URINE MICROSCOPIC INDICATED? 2025-01-30 19:30 [employer] NOT INDICATED (missing) (missing) FENTANYL SCREEN, URINE 2025-01-30 19:30 [facility] Negative (missing) [facility] LZI Fentanyl (Q) Enzyme Immunoassay. RESULT INTERPRETATION: This assay qualitatively detects norfentanyl in urine which is the major metabolite of fentanyl. A result greater than or equal to 5 ng/mL is considered presumptively positive for fentanyl exposure. CLINICAL SIGNIFICANCE: Presumptive positive results indicate norfentanyl concentrations above the assay cutoff. Due to possible cross-reactivity and potential interference, confirmatory testing by a definitive method (e.g., LC-MS/MS) is recommended for positive or unexpected findings. LIMITATIONS: This test is intended for qualitative screening and is unconfirmed. Concentrations below 5 ng/mL may not be reliably detected. False positives and false negatives are possible. Results are to be used for medical purposes only and can't be used for non-medical or legal purposes. BENZODIAZEPINES SCREEN, URINE 2025-01-30 19:30 [facility] POSITIVE (missing) (missing) OPIATE SCREEN, URINE 2025-01-30 19:30 [facility] POSITIVE (missing) (missing) COLOR,URINE 2025-01-30 19:30 [facility] YELLOW (missing) URINE CLEAN CATCH Result panel 3 AMMONIA 2025-01-30 20:55 [facility] 44.3 umol/l As of December 2022 testing method has changed, this may include reference ranges. Result panel 4 HGB - HEMOGLOBIN 2025-01-31 02:19 [facility] 9.8 g /dl (missing) Result panel 5 ABNORMAL LYMPHS % (MANUAL) 2025-01-31 05:04 [facility] 0 % (missing) BASOPHILS # (MANUAL) 2025-01-31 05:04 [facility] 0.0 10 3/ul (missing) EOSINOPHILS # (MANUAL) 2025-01-31 05:04 [facility] 0.1 10 3/ul (missing) MONOCYTES # (MANUAL) 2025-01-31 05:04 [facility] 0.3 10 3/ul (missing) CREATININE 2025-01-31 05:04 [facility] 0.4 mg/dl As of December 2022 testing method has changed, this may include reference ranges. LYMPHOCYTES # (MANUAL) 2025-01-31 05:04 [facility] 1.9 10 3/ul (missing) HGB - HEMOGLOBIN 2025-01-31 05:04 [facility] 10.8 g/dl (missing) TOTAL CELLS COUNTED 2025-01-31 05:04 [facility] 100 (missin g) (missing) SODIUM 2025-01-31 05:04 [facility] 136 mmol/l (missing) FOLATE 2025-01-31 05:04 [facility] 14.4 ng/ml (missing) RED CELL DISTRIBUTION WIDTH 2025-01-31 05:04 [facility] 15.4 % (missing) GFR - MDRD 2025-01-31 05:04 [facility] 159 (missin g) The IDMS-traceable MDRD Study Equation has been validated extensively in and populations between the ages of 18 and 70 with impaired kidney function (eGFR < 60 mL/min/1.73m2) and has shown good performance for patients with all common causes of kidney disease. Although this equation has not been validated for patients older than 70, an MDRD-derived eGFR may still be a useful tool for providers caring for patients older than 70. References: http://www.nkdep. nih.gov/lab-evalu ation/gfr/creatin ine-stand ardization, last updated August 2011. IRON 2025-01-31 05:04 [facility] 16 ug/dl As of December 2022 testing method has changed, this may include reference ranges. TRANSFERRIN 2025-01-31 05:04 [employer] [employer] 197 mg/dl As of December 2022 testing method has changed, this may include reference ranges. MEAN CORPUSCULAR HEMOGLOBIN 2025-01-31 05:04 [facility] [employer] 26.9 pg (missing) TOTAL IRON BINDING CAPACITY 2025-01-31 05:04 [facility] 276 ug/dl (missing) CARBON DIOXIDE - CO2 2025-01-31 05:04 [facility] 29 mmol/l As of December 2022 testing method has changed, this may include reference ranges. POTASSIUM 2025-01-31 05:04 [employer] 3.2 mmol/l As of December 2022 testing method has changed, this may include reference ranges. NEUTROPHILS # (MANUAL) 2025-01-31 05:04 [employer] 3.4 10 3/ul (missing) MEAN CORPUSCULAR HGB CONC 2025-01-31 05:04 [facility] 30.4 g/dl (missing) HCT - HEMATOCRIT 2025-01-31 05:04 [facility] 35.5 % (missing) RED BLOOD COUNT 2025-01-31 05:04 [facility] 4.01 10 6/ul (missing) PLT - PLATELET COUNT 2025-01-31 05:04 [employer] 419 10 3/ul (missing) WHITE BLOOD COUNT 2025-01-31 05:04 [facility] 5.7 x10 3/ul (missing) % IRON SATURATION 2025-01-31 05:04 [employer] 6 % (missing) VITAMIN B12 2025-01-31 05:04 [employer] 686 pg/ml VITAMIN B12 RANGES: NORMAL 180 - 914 INDETERMINATE 145 -180 DEFICIENT < 145 BUN - BLOOD UREA NITROGEN 2025-01-31 05:04 [facility] 7 mg/dl As of December 2022 testing method has changed, this may include reference ranges. BAND NEUTROPHILS % (MANUAL) 2025-01-31 05:04 [employer] 8 % (missing) MEAN PLATELET VOLUME 2025-01-31 05:04 [facility] 8.2 fl (missing) MEAN CORPUSCULAR VOLUME 2025-01-31 05:04 [facility] 88.5 fl (missing) GLUCOSE 2025-01-31 05:04 [facility] 89 mg/dl As of December 2022 testing method has changed, this may include reference ranges. ANION GAP 2025-01-31 05:04 [facility] 9.0 (missin g) (missing) CALCIUM 2025-01-31 05:04 [employer] 9.1 mg/dl As of December 2022 testing method has changed, this may include reference ranges. CHLORIDE 2025-01-31 05:04 [employer] 98 mmol/l As of December 2022 testing method has changed, this may include reference ranges. DIFFERENTIAL COMMENT 2025-01-31 05:04 [employer] MANUAL DIFFERENTIAL (missin g) (missing) PLATELET ESTIMATE, MANUAL 2025-01-31 05:04 [facility] NORMAL (130-450,000) (missin g) (missing) PLATELET MORPHOLOGY 2025-01-31 05:04 [facility] NORMAL APPEARANCE (missin g) (missing) RBC MORPHOLOGY (MULTIPLE) 2025-01-31 05:04 [facility] NORMAL APPEARANCE (missin g) (missing) WBC MORPHOLOGY (MULTIPLE) 2025-01-31 05:04 [facility] NORMAL APPEARANCE (missin g) (missing) Social History date description facility
[2025-03-19 17:30] LABS: HCT - HEMATOCRIT 34.9 % (37.0-47.0); HGB - HEMOGLOBIN 11.2 g/dL (12.0-16.0); MEAN PLATELET VOLUME 7.9 fL (7.9-10.8); NRBC ABSOLUTE COUNT (AUTO) 0.00 x10^3/uL; NUCLEATED RED BLOOD CELLS AUTO 0.0 /100WBC; PLT - PLATELET COUNT 397 10^3/uL (130-450); RED CELL DISTRIBUTION WIDTH 17.0 % (12.0-15.0)
[2025-03-19 17:46] LABS: ALT ALANINE AMINOTRANSFERASE 6 IU/L (10-60); AST ASPARTATE AMINOTRANSFERASE 14 IU/L (10-42); BUN - BLOOD UREA NITROGEN 12 mg/dL (6-20); CARBON DIOXIDE - CO2 28 mmol/L (21-32); CREATININE 0.5 mg/dL (0.6-1.3); GFR - MDRD 123 (>89)
[2025-03-19] MEDS: SODIUM CHLORIDE 0.9% 1,000 ML IV STA (18:40)
--- NOTE | 2025-03-19 18:46 | ED Physician Documentation ---
History of Present Illness Stated complaint Stated Complaint: ABD PX/DIARRHEA Chief complaint Chief Complaint: Abd Pain History obtained from History obtained from: Patient History of Present Illness Timing: Prior to arrival Additonal information Additional information: Patient is a 9-year-old female presenting to the emergency department 2 to 3 days of diarrhea and lower abdominal crampy she feels her abdomen is distended she describes pain in her lower pelvic regions that occasionally radiates to her epigastric region. She has a history of ulcers but no specific abdominal surgeries. No nausea vomiting chest pain shortness of breath no dysuria no fevers no recent travel no recent antibiotic use discussed about 4-5 episodes of sleeping in the light brown diarrhea this afternoon. No history of alcohol abuse. Meds/Allgy Home Medications Ambulatory Orders Medication Instructions Recorded Confirmed venlafaxine 150 mg 150 mg PO DAILY #90 caps 12/2903/19/25 capsule,extended release 24 hr fluticasone 250 mcg-salmeterol 50 1 inh inhalation BID #60 ea 11/07/24 03/19/25 mcg/dose blistr powdr for inhalation (Advair Diskus) Held on 03/19/25. Instructions: Per Patient cholecalciferol (vitamin D3) 50 50 mcg PO QDAY #90 cap s 11/27/24 03/19/25 mcg (2,000 unit) capsule Held on 03/19/25. Instructions: Per Patient amlodipine 5 mg tablet 5 mg PO BID 12/07/24 5 lisinopril 40 mg tablet 40 mg PO QDAY 12/07/2403/19 oxycodone 5 mg tablet 5 mg PO BID PRN pain #7 tabs 01/31/25 03/19/25 pantoprazole 40 mg tablet,delayed 40 mg PO BIDAC 6 wee ks #84 tabs 01/31/25 03/19/25 release hydrochlorothiazide 25 mg tablet 25 mg PO DAILY hypert ension #90 02/13/25 03/19/25 tabs lorazepam 0.5 mg tablet 0.5 mg PO BID-TID PRN Anxiet y #60 02/27/25 03/19/25 tabs potassium chloride 20 mEq 20 meq PO DAILYWM #90 tabs 1 03/19/25 tablet,extended release(part/cryst) (Klor-Con M) Held on 03/19/25. Instructions: Per Patient Allergies Allergies Allergy/AdvReac Type Severity Reaction Status Date / Time codeine AdvReac Mild Nausea Verified 03/19/25 16:46 PFSH Active Problems All Active Problems (Updated 03/19/25 @ 21:15 by Lilia Saldaña PA-C) Hypomagnesemia (Acute) Acute hypokalemia (Acute) Diarrhea (Acute) Ileus (Acute) Enteritis (Acute) Hypokalemia (Chronic) Long-term use of high-risk medication (Chronic) Benzodiazepine dependence (Chronic) Chronic dental pain (Chronic) Opioid abuse (Chronic) Oral thrush (Chronic) Severe anemia (Chronic) Neck pain (Chronic) At risk for falls (Chronic) Pedal edema (Chronic) Screening for colorectal cancer (Chronic) Poor dentition (Chronic) Insomnia due to mental disorder (Chronic) Apnea (Chronic) Alcohol dependence in sustained full remission (Chronic) Generalized anxiety disorder with panic attacks (Chronic) Agoraphobia (Chronic) COPD (chronic obstructive pulmonary disease) (Chronic) Polyarthralgia (Chronic) Peptic ulcer disease (Chronic) Osteoporosis (Chronic) Chronic pain (Chronic) Knee pain, bilateral (Chronic) Kidney, malrotation (Chronic) Depression, major, recurrent, moderate (Chronic) HSV (herpes simplex virus) infection (Chronic) Tobacco dependence (Chronic 08/12/23) Raynaud's syndrome (Chronic 10/26/22) Essential hypertension (Chronic 01/11/23) Medical History Medical History Breast implant leak Breast implant status Ashwin ulcer Gastric ulcer Generalized anxiety disorder History of alcohol abuse Left ventricular hypertrophy by electrocardiogram Panic attack (10/26/22) Upper GI bleed Surgical History Surgical History Abnormal findings on esophagogastroduodenoscopy (EGD) Upper GI bleed, 03/03/2024, Dr. Rees Family History Family History Mother Depressed Sister Leukemia Lung cancer Maternal grandmother Diabetes Social History Social History (Updated 03/19/25 @ 16:54 by Larry Izquierdo RN) Smoking Status: Current every day smoker Number of Years Smoked: 25 How many cigarettes a day do you smoke? (20 cigarettes=1 Pk): 20 Second hand tobacco smoke exposure: Yes Do you dip or chew tobacco?: No Do you vape?: No Patient requests smoking cessation consult: No Initiate information on smoking cessation: No Living arrangement: At home Marital Status: Living Condition: With friend(s) and Other Living Condition Notes: Unknown - see PCP note. Support Person: Yes Physical Activity: None Level: Assisted Do you feel safe in your home environment?: Yes History of physical, verbal, emotional, or financial abuse?: No ETOH Use: None Substance Use: denies use Are you sexually active?: No Retired: Yes Service: No POLST Patient has POLST: No Exam Exam Vital Signs: Vital Signs x48h Temp Pulse Resp BP Pulse Ox 03/19/25 20:40 66 16 138/78 H 93 03/19/25 19:41 84 16 130/79 94 03/19/25 16:46 37.6 C 56 L 16 113/72 96 Constitutional normal general appearance HENMT normocephalic Eyes PERRL and EOMs intact bilaterally Neck/C-Spine visual inspection normal Lymph no lymphadenopathy noted Chest inspection of chest normal Respiratory breath sounds equal bilaterally, normal respiratory effort and clear to auscultation bilaterally Cardiovascular normal heart rate noted, regular rhythm noted, no gallop and no rub Gastrointestinal Distended abdomen with significant tenderness bloating and decreased sounds on auscultation. Tenderness in epigastric and pelvic regions on examination. Results Vitals Vitals: Vital Signs - 24 hr 03/19/25 16:46 03/19/25 19:41 03/19/25 20:40 Temperature 37.6 C Temperature Source Temporal Artery Scan Pulse Rate 56 L 84 66 Respiratory Rate 16 16 16 Blood Pressure 113/72 130/79 138/78 H O2 Saturation 96 94 93 O2 Source Room air Room air Room air Pain Intensity 9 03/19/25 21:08 Temperature Temperature Source Pulse Rate Respiratory Rate Blood Pressure O2 Saturation O2 Source Pain Intensity 9 Oxygen O2 Source Room air Labs Labs: Laboratory Tests 03/19/25 03/19/25 03/19/25 17:26 17:26 20:35 WBC 12.0 H RBC 4.24 Hgb 11.2 L Hct 34.9 L MCV 82.3 MCH 26.4 L MCHC 32.1 RDW 17.0 H Plt Count 397 MPV 7.9 Neut # (Auto) 7.8 H Lymph # (Auto) 3.0 [place] # (Auto) 1.0 Eos # (Auto) 0.1 Baso # (Auto) 0.1 Absolute Nucleated RBC 0.00 Nucleated RBC % 0.0 Sodium 130 L Potassium 2.8 L 2.9 L Chloride 93 L Carbon Dioxide 28 Anion Gap 9.0 BUN 12 Creatinine 0.5 L Estimated GFR (MDRD) 123 Glucose 105 H Calcium 8.9 Magnesium 1.6 L Total Bilirubin 0.5 AST 14 ALT 6 L Alkaline Phosphatase 73 Total Protein 6.6 Albumin 4.0 Globulin 2.6 Albumin/Globulin Ratio 1.5 Lipase < 10 L Urine Color YELLOW Urine Clarity HAZY Urine pH 6.0 Ur Specific [place] 1.005 Urine Protein NEGATIVE Urine Glucose (UA) NEGATIVE Urine Ketones NEGATIVE Urine Occult Blood NEGATIVE Urine Nitrite NEGATIVE Urine Bilirubin NEGATIVE Urine Urobilinogen 0.2 (NORMAL) Ur Leukocyte Esterase SMALL H Urine RBC 0-5 Urine WBC 6-10 H Ur Squamous Epith Cells MANY Squamous H Urine Bacteria Many H Ur Microscopic Review INDICATED Urine Culture Comments NOT INDICATED PD Medical Decision Making ED course Complexity details: reviewed old records and reviewed results ED course: Patient is a 69-year-old female presenting to the emergency department with generalized abdominal swelling and diarrhea for the past 2 to 3 days episodes about 4-5 a day history of stomach ulcers but no other abdominal surgery no nausea or vomiting. She has history of alcohol use. CT abdomen pelvis: 1. Acute colitis with ileus. 2. Abnormally dilated loops of small bowel. Transition point not identified. This is favored to represent ileus though small bowel obstruction cannot be excluded due to compactness of bowel. 3. Cholelithiasis. 4. Chronic common bile duct dilation. 5. Chronic pancreatic duct dilation. Discussed these findings with on-call surgeon Dr. Mulligan reviewed patient's low hypokalemia but this appears chronic she is supplemented here in the ED and recheck of potassium did show improvement to 2.9 she is tolerating p.o. stool cultures have been ordered but she has not been unable to provide a sample. She has no persistent nausea or vomiting her pain for her abdomen is under control with her regular oxycodone dose. I discussed with patient staying overnight versus discharge and she prefers to stay given her abdominal distention reach out to hospitalist who is agreeable with admission I did update Dr. Gamez but patient staying overnight. Discussed case with hospitalist Dr. Brandon patient's potassium did slightly increase but he is willing to admit patient keep her on clear liquid diet fluids and potassium supplementation in hospital for further treatment. Patient was agreeable with this plan. Discharge Plan Discharge Patient Disposition: 68 [facility] DC/Xfer Condition: Good Clinical Impression: Enteritis, Ileus, Diarrhea, Acute hypokalemia, Hypomagnesemia Prescriptions: No Action hydrochlorothiazide 25 mg tablet 25 mg PO DAILY Qty: 90 4RF Rx Instructions: Take 1 tablet by mouth once daily lorazepam 0.5 mg tablet 0.5 mg PO BID-TID MDD 1 mg PRN (Reason: Anxiety) Qty: 60 1RF Patient Comments: Patient states she takes one in the morning, and one around 2pm. Rx Instructions: Take 1 tablet by mouth twice a day as needed anxiety/panic. Use sparingly to reduce risk of tolerance or overuse. Not to exceed 2 tablets daily. pantoprazole 40 mg Tablet,Delayed Release (Dr/Ec) 40 mg PO BIDAC 42 Days Qty: 84 0RF oxycodone 5 mg tablet 5 mg PO BID PRN (Reason: pain) Qty: 7 0RF venlafaxine 150 mg capsule,extended release 24hr 150 mg PO DAILY Qty: 90 4RF amlodipine 5 mg tablet 5 mg PO BID lisinopril 40 mg tablet 40 mg PO QDAY potassium chloride [Klor-Con M20] 20 mEq tablet,ER particles/crystals 20 meq PO DAILYWM Qty: 90 4RF Rx Instructions: take 1 tab daily with food fluticasone propion-salmeterol [Advair Diskus] 250-50 mcg/dose blister with device 1 inh inhalation BID Qty: 60 11RF cholecalciferol (vitamin D3) 50 mcg (2,000 unit) capsule 50 mcg PO QDAY Qty: 90 3RF Print Language: Lao
[2025-03-19] MEDS: POTASSIUM CHLOR 10 MEQ/100 ML 10 MEQ/100 ML BAG IV STA (19:45)
--- NOTE | 2025-03-19 20:30 | CT Report ---
PROCEDURE: CT Abdomen/Pelvis W INDICATIONS: abdominal pain and bloating CONTRAST: omni 300, 85ml TECHNIQUE: After the administration of intravenous contrast, a CT scan of the abdomen and pelvis was performed. Images were recorded and evaluated at appropriate window settings. Reformats: coronal and sagittal. For radiation dose reduction, the following was used: automated exposure control, adjustment of mA and/or kV according to patient size. COMPARISON: None. FINDINGS: Image quality: Diagnostic. Lower chest: Subsegmental atelectasis at the lungs bases. Bilateral breast implants with peripheral calcification. Liver: No contour-deforming mass. Gallbladder: Wall thickening and cholelithiasis. Biliary tree: Biliary duct dilation to 1 cm unchanged. Spleen: No splenomegaly. Pancreas: 5 mm pancreatic duct, unchanged. No discrete pancreatic lesion identified. Adrenals: Right adrenal adenoma, unchanged. Kidneys and ureters: No hydronephrosis. No contour-deforming mass. Stomach, bowel and peritoneum: Circumferential wall thickening of the descending colon with distention of ascending and transverse colon to 8.6 cm with air-fluid level. Appendix not identified. Prominent loops of small bowel in the mid abdomen with air-fluid levels but no discrete transition point identified. Low volume ascites. Lymph nodes: No central or retroperitoneal adenopathy. Vessels: Severe atherosclerosis. No aneurysm. Reproductive organs: Unremarkable. Bladder: No abnormal bladder wall thickening. No calcified bladder stones. Pelvic lymph nodes: No adenopathy by size criteria. Bones: Severe degenerative changes in the lower lumbar spine with L4-L5 anterolisthesis. No acute or aggressive osseous lesion or acute fracture. Other: Fluid containing right inguinal hernia. Pelvic floor prolapse. IMPRESSION: 1. Acute colitis with ileus. 2. Abnormally dilated loops of small bowel. Transition point not identified. This is favored to represent ileus though small bowel obstruction cannot be excluded due to compactness of bowel. 3. Cholelithiasis. 4. Chronic common bile duct dilation. 5. Chronic pancreatic duct dilation. Reviewed by: Frank Hidalgo MD on 03/19/2025 8:26 PM PDT Approved by: Frank Hidalgo MD on 03/19/2025 8:26 PM PDT Station ID: [id number]
[2025-03-19 20:54] LABS: GLUCOSE, URINE (UA) NEGATIVE (NEGATIVE); KETONES,URINE (UA) NEGATIVE (NEGATIVE); OCCULT BLOOD,URINE NEGATIVE (NEGATIVE)
[2025-03-19] MEDS: POTASSIUM BICARB 25 MEQ TABLET PO STA (21:08)
[2025-03-19] MEDS: oxyCODONE 5 MG TABLET PO STA (21:08)
[2025-03-19 21:09] LABS: SQUAMOUS EPITHELIAL CELL,UR MANY Squamous (<= Few)
[2025-03-19] MEDS ORDERED: KETOROLAC 15 MG/ML VIAL IVP PRN (22:35)
[2025-03-19] MEDS ORDERED: ACETAMINOPHEN 325 MG TABLET PO PRN (22:35)
[2025-03-19] MEDS ORDERED: PHENOL THROAT SPRAY 177 ML MM PRN (22:39)
[2025-03-19] MEDS ORDERED: CALAMINE/ZINC OXIDE 177 ML BOTTLE TOP PRN (22:39)
[2025-03-19] MEDS ORDERED: WITCH HAZEL/GLYCERIN 1 PAD TOP PRN (22:39)
[2025-03-19] MEDS ORDERED: CARBOXYMETHYLCELLULOSE OPHTH DROPS EACHEYE PRN (22:39)
[2025-03-19] MEDS ORDERED: BENZOCAINE/MENTHOL LOZENGE MM PRN (22:39)
[2025-03-19] MEDS ORDERED: MORPHINE 2 MG/ML CARPUJECT IVP PRN (23:02)
[2025-03-19 23:13] LABS: CHOL/HDL RATIO 2.7 (<4.4); LDL/HDL RATIO 1.3 (<4.4); VLDL CHOLESTEROL 22 mg/dL
--- NOTE | 2025-03-19 23:36 | HISTORY & PHYSICAL EXAMINATION ---
Chief Complaint Chief Complaint Chief Complaint: abd pain / cramping, diarrhea History of Present Illness History of Present Illness HPI Comment/Other: pt with abd pain / cramping that has gotten worse over last 2-3 days. no fevers but has chills. no chest pain or sob. smokes 10-12 cigarettes daily for "many years" but denies other substances. h/o htn. no falls. no dysuria or hematuria. states that she saw her pcp on mar 08 after being constipated x 8 days prior to appt, and she was given rx for laxative, which relieved her symptoms but she began having copious diarrhea - even accidentally. no blood in stool. pt reports having history of dark stools for which she underwent endoscopy and found to have ulcers, but no abdominal interventions. Review of Systems Status of ROS: 10 or more systems reviewed and unremarkable except as noted in history and below PFSH Active Problems All Active Problems (Updated 03/19/25 @ 22:48 by ) Hypomagnesemia (Acute) Acute hypokalemia (Acute) Diarrhea (Acute) Ileus (Acute) Enteritis (Acute) Hypokalemia (Chronic) Long-term use of high-risk medication (Chronic) Benzodiazepine dependence (Chronic) Chronic dental pain (Chronic) Opioid abuse (Chronic) Oral thrush (Chronic) Severe anemia (Chronic) Neck pain (Chronic) At risk for falls (Chronic) Pedal edema (Chronic) Screening for colorectal cancer (Chronic) Poor dentition (Chronic) Insomnia due to mental disorder (Chronic) Apnea (Chronic) Alcohol dependence in sustained full remission (Chronic) Generalized anxiety disorder with panic attacks (Chronic) Agoraphobia (Chronic) COPD (chronic obstructive pulmonary disease) (Chronic) Polyarthralgia (Chronic) Peptic ulcer disease (Chronic) Osteoporosis (Chronic) Chronic pain (Chronic) Knee pain, bilateral (Chronic) Kidney, malrotation (Chronic) Depression, major, recurrent, moderate (Chronic) HSV (herpes simplex virus) infection (Chronic) Tobacco dependence (Chronic 08/12/23) Raynaud's syndrome (Chronic 10/26/22) Essential hypertension (Chronic 01/11/23) Medical History Medical History Breast implant leak Breast implant status Ashwin ulcer Gastric ulcer Generalized anxiety disorder History of alcohol abuse Left ventricular hypertrophy by electrocardiogram Panic attack (10/26/22) Upper GI bleed Surgical History Surgical History Abnormal findings on esophagogastroduodenoscopy (EGD) Upper GI bleed, 03/03/2024, Dr. Rees Family History Family History Mother Depressed Sister Leukemia Lung cancer Maternal grandmother Diabetes Social History Social History (Updated 03/19/25 @ 16:54 by Larry Izquierdo RN) Smoking Status: Current every day smoker Number of Years Smoked: 25 How many cigarettes a day do you smoke? (20 cigarettes=1 Pk): 20 Second hand tobacco smoke exposure: Yes Do you dip or chew tobacco?: No Do you vape?: No Patient requests smoking cessation consult: No Initiate information on smoking cessation: No Living arrangement: At home Marital Status: Living Condition: With friend(s) and Other Living Condition Notes: Unknown - see PCP note. Support Person: Yes Physical Activity: None Level: Assisted Do you feel safe in your home environment?: Yes History of physical, verbal, emotional, or financial abuse?: No ETOH Use: None Substance Use: denies use Are you sexually active?: No Retired: Yes Service: No POLST Patient has POLST: No Meds/Allgy Home Medications Ambulatory Orders Medication Instructions Recorded Confirmed venlafaxine 150 mg 150 mg PO DAILY #90 caps 12/2903/19/25 capsule,extended release 24 hr fluticasone 250 mcg-salmeterol 50 1 inh inhalation BID #60 ea 11/07/24 03/19/25 mcg/dose blistr powdr for inhalation (Advair Diskus) Held on 03/19/25. Instructions: Per Patient cholecalciferol (vitamin D3) 50 50 mcg PO QDAY #90 cap s 11/27/24 03/19/25 mcg (2,000 unit) capsule Held on 03/19/25. Instructions: Per Patient amlodipine 5 mg tablet 5 mg PO BID 12/07/24 5 lisinopril 40 mg tablet 40 mg PO QDAY 12/07/2403/19 oxycodone 5 mg tablet 5 mg PO BID PRN pain #7 tabs 01/31/25 03/19/25 pantoprazole 40 mg tablet,delayed 40 mg PO BIDAC 6 wee ks #84 tabs 01/31/25 03/19/25 release hydrochlorothiazide 25 mg tablet 25 mg PO DAILY hypert ension #90 02/13/25 03/19/25 tabs lorazepam 0.5 mg tablet 0.5 mg PO BID-TID PRN Anxiet y #60 02/27/25 03/19/25 tabs potassium chloride 20 mEq 20 meq PO DAILYWM #90 tabs 1 03/19/25 tablet,extended release(part/cryst) (Klor-Con M) Held on 03/19/25. Instructions: Per Patient Allergies Allergies Allergy/AdvReac Type Severity Reaction Status Date / Time codeine AdvReac Mild Nausea Verified 03/19/25 16:46 Exam Exam Vital Signs: Vital Signs x48h Temp Pulse Resp BP Pulse Ox 03/19/25 23:13 70 20 120/76 96 03/19/25 22:30 88 16 128/88 95 03/19/25 20:40 66 16 138/78 H 93 03/19/25 19:41 84 16 130/79 94 03/19/25 16:46 37.6 C 56 L 16 113/72 96 gen - aaox3, nad, polite heent - eomi, nc/at heart - per ed chartig lungs - no obvious distress or retractions abd - details per ed charting msk - no acute trauma or pathology Conclusion/Plan Problem List (1) Ileus: (2) Diarrhea: (3) Acute hypokalemia: (4) Hypomagnesemia: Lab Results 03/19/25 17:26 03/19/25 17:26 Other Other Results/Comments: pt with - - abd pain + diarrhea in setting colitis / enteritis also with findings of ileus on imaging zosyn, ivf, supportive care gen surg consulted stool studies ordered by ed - hypokalemia + hypomagnesemia d/t diarrhea above replete continue home K supplement - elevated bp exacerbated d/t above continue home meds and monitor - tobacco use d/o counseled to stop to prevent further morbidty/mortality further orders per clinical course
[2025-03-20] MEDS: PIPERACILLIN/TAZOBACTAM 3.375 GM in SODIUM CHLORIDE 0.9% MINIBAG 100 ML IV SCH ×2 (00:51→06:29)
[2025-03-20] MEDS: LACTATED RINGERS 1,000 ML IV SCH (00:51)
[2025-03-20] MEDS: FUROSEMIDE 20 MG/2 ML VIAL IVP ONE (00:52)
[2025-03-20] MEDS: ethyl alcohoL 62% SWAB AMPULE NAS SCH (00:57)
[2025-03-20] MEDS: oxyCODONE 5 MG TABLET PO PRN ×2 (01:48→16:48)
[2025-03-20 04:51] LABS: HCT - HEMATOCRIT 31.0 % (37.0-47.0); HGB - HEMOGLOBIN 9.7 g/dL (12.0-16.0); MEAN PLATELET VOLUME 8.2 fL (7.9-10.8); NRBC ABSOLUTE COUNT (AUTO) 0.00 x10^3/uL; NUCLEATED RED BLOOD CELLS AUTO 0.0 /100WBC; PLT - PLATELET COUNT 342 10^3/uL (130-450); RED CELL DISTRIBUTION WIDTH 16.8 % (12.0-15.0)
[2025-03-20 06:24] LABS: ALT ALANINE AMINOTRANSFERASE 6.0 IU/L (10-60); AST ASPARTATE AMINOTRANSFERASE 13.0 IU/L (10-42); BUN - BLOOD UREA NITROGEN 10.0 mg/dL (6-20); CARBON DIOXIDE - CO2 29.0 mmol/L (21-32); CREATININE 0.5 mg/dL (0.6-1.3); GFR - MDRD 123.0 (>89)
[2025-03-20] MEDS: PANTOPRAZOLE 40 MG TABLET PO SCH (06:29)
--- NOTE | 2025-03-20 07:23 | PROVIDER PROGRESS NOTE ---
<Statement entered by Juan Mulligan, DO - 03/20/25 15:35> I was present with the medical student on the hospitalist service. I personally verified the history of present illness and performed the physical examination and medical decision making. I have verified all of the medical students documentation for this encounter and agree with the plan of care below. In addition this is a 69-year-old female who was admitted yesterday late with a history of constipation and diarrhea. She has ample stool burden in her distal colon on CT on my review. She then has some dilated bowel loops with gas. No clear transition point. She does have some liquid stool above her impacted feces. Patient is not nauseous or vomiting. Will trial enema and see if we can get her bowels moving. I reviewed her case with general surgery on-call, Dr. Son. He agrees with trying to mobilize her bowels from below. May need disimpaction. Failing this, may need need SBFT. Discontinuing antibiotics that were started last night as she does not have any other clear infectious symptoms. Awaiting stool culture. Discontinuing IV fluids. Patient is eating and drinking. Encouraging her to ambulate. Otherwise have started her on nicotine replacement therapy given her chronic smoking history. I spent 7 minutes today discussing smoking cessation. Patient remains precontemplative. I would propose discharge with nicotine replacement and have encouraged her to stop smoking. Will reinforce prior to discharge. If she develops acute abdominal symptoms, will get an acute abdomen series as she is at risk for perforation, though unlikely. Subjective Prog Note Date Prog Note Date: 03/20/25 Prog Note Time: 07:19 Subjective Subjective: Patient admitted late yesterday. Having episodes of fecal incontinence reportedly at home. Started 3-4 days ago after she started taking laxatives and stool softeners for constipation. She then began having diarrhea, but now has not had a bowel movement since midday on 03/19. No fevers, nausea or vomiting. No hematochezia, melena, or hemetemesis. No antibiotics prior to admission. No history of C. difficile. Labs this morning reveal potassium 2.9. Mag remains low 1.5-1.6, has not yet been repleted. Chloride 97, sodium 134. Mild leukocytosis of 12 on admission has since normalized. Hemoglobin 9.7, likely diluted down from 11.2. She has copious amounts of bowel gas on her CT. Reviewed her imaging and discussed with general surgery. Current Medications Current Medications Current Medications: Current Medications Generic Name Dose Route Start Last Admin Trade Name Freq PRN Reason Stop Dose Admin Acetaminophen 650 mg 03/19/25 22:35 Acetaminophen 325 Mg Tablet PO Q6H PRN pain, fever Alcohol 1 amp 03/19/25 23:00 03/20/25 00:57 Ethyl Alcohol 62% Swab Ampule MATT Not Given BID [facility] Amlodipine Besylate 5 mg 03/20/25 09:00 Amlodipine 5 Mg Tablet PO BID ESTER Benzonatate 100 mg 03/19/25 22:35 Benzonatate 100 Mg Capsule PO TID PRN Cough Budesonide 0.5 mg 03/20/25 19:00 Budesonide 0.5 Mg/2 Ml Neb INH RTBID ESTER Calamine 1 applic 03/19/25 22:39 Calamine/Zinc Oxide 177 Ml Bottle TOP PRN PRN SKIN CARE Carboxymethylcellulose 1 drops 03/19/25 22:39 Carboxymethylcellulose Ophth Drops EACHEYE PRN PRN Dry Eye Cholecalciferol 50 mcg 03/20/25 09:00 Cholecalciferol 25 Mcg Tablet PO DAILY [facility] Formoterol Fumarate 20 mcg 03/20/25 19:00 Formoterol Fumarate Neb 20 Mcg/2 Ml INH RTBID ESTER Hydrochlorothiazide 25 mg 03/20/25 09:00 Hydrochlorothiazide 25 Mg Tablet PO DAILY [facility] Lactated Ringer's 1,000 mls @ 125 mls/hr 03/19/25 23:00 03/20/25 00:51 Lr IV 125 mls/hr .Q8H ESTER Administration Piperacillin Sod/Tazobactam 100 mls @ 25 mls/hr 03/20/25 05:00 03/20/25 06:29 Sod 3.375 gm/ Sodium Chloride IV 25 mls/hr Q8H ESTER Administration Magnesium Sulfate 1 gm/ Sodium 52 mls @ 54 mls/hr 03/20/25 07:16 Chloride IV 03/20/25 08:13 ONCE ONE Ketorolac Tromethamine 15 mg 03/19/25 22:35 Ketorolac 15 Mg/Ml Vial IVP 03/22/25 22:34 Q8H PRN Severe Pain (Level 7-10) Lisinopril 40 mg 03/20/25 01:00 03/20/25 01:44 Lisinopril 20 Mg Tablet PO 40 mg DAILY ESTER Administration Lorazepam 0.5 mg 03/19/25 22:32 03/20/25 00:58 Lorazepam 0.5 Mg Tablet PO 0.5 mg BID PRN Administration ANXIETY Magnesium Oxide 400 mg 03/20/25 08:00 Magnesium Oxide 400 Mg Tablet PO DAILYWM ESTER Morphine Sulfate 2 mg 03/19/25 23:02 Morphine 2 Mg/Ml Carpuject IVP Q4H PRN pain Ondansetron HCl 4 mg 03/19/25 22:35 Ondansetron 4 Mg/2 Ml Vial IVP Q8H PRN Nausea / Vomiting Oxycodone HCl 5 mg 03/19/25 22:32 03/20/25 01:48 Oxycodone 5 Mg Tablet PO 5 mg BID PRN Administration pain Pantoprazole Sodium 40 mg 03/20/25 07:00 03/20/25 06:29 Pantoprazole 40 Mg Tablet PO 40 mg BIDAC ESTER Administration Phenol/Menthol 2 sprays 03/19/25 22:39 Phenol Throat [place] 177 Ml MM Q2HR PRN Throat Pain Potassium Chloride 20 meq 03/20/25 08:00 Potassium Chloride 20 Meq Tablet PO DAILYWM [facility] Throat Lozenges 1 lozenge 03/19/25 22:39 Benzocaine/Menthol Lozenge MM Q2HR PRN Throat pain Venlafaxine HCl 150 mg 03/20/25 09:00 Venlafaxine Er 75 Mg Capsule PO DAILY ESTER Witch Pamela/Glycerin 1 pad 03/19/25 22:39 Witch Pamela/Glycerin 1 Pad TOP PRN PRN ITCHING Objective Vital Signs/Intake & Output Reviewed Vital Signs: Yes Vital Signs: Vital Signs x48h Temp Pulse Resp BP Pulse Ox O2 Flow Rate 03/20/25 04:00 37.2 C 101 H 16 171/98 H 93 4 03/20/25 00:00 36.7 C 97 18 144/93 H 98 Intake & Output: Intake & Output 03/17/25 03/18/25 03/19/25 03/20/25 23:59 23:59 23:59 23:59 Intake Total 1100 / 1100 820 / 820 Balance 1100 / 1100 820 / 820 Weight (kg) 53 kg Objective General Appearance: positive No acute distress and Alert Eyes Bilateral: positive Normal inspection, PERRL, EOMI and Conjunctivae nml ENT: positive ENT inspection nml and No signs of dehydration Neck: positive Nml inspection and No JVD Respiratory: positive No respiratory distress (on 4L NC) and Rhonchi (mild expiratory rhonchi at the base) Cardiovascular: positive Regular rate & rhythm and No murmur Abdomen: positive Non-tender and Other (Distended); negative Guarding or Rebound Skin: positive Color nml, Warm and Dry Extremities: positive No pedal edema Neurologic/Psychiatric: positive Oriented x3 and Mood/affect nml Lab Results 03/20/25 04:21 03/20/25 04:21 Other Labs: Lab Results x24hrs 08-24-2024 CRP <0.5 08-24-2024 ESR 4 03/20/25 03/19/25 03/19/25 Range/Units 04:21 23:09 20:35 WBC 10.2 (4.8-10.8) x10^3/uL RBC 3.71 L (4.20-5.40) 10^6/uL Hgb 9.7 L (12.0-16.0) g/dL Hct 31.0 L (37.0-47.0) % MCV 83.6 (81.0-99.0) fL MCH 26.1 L (27.0-31.0) pg MCHC 31.3 L (32.0-36.0) g/dL RDW 16.8 H (12.0-15.0) % Plt Count 342 (130-450) 10^3/uL MPV 8.2 (7.9-10.8) fL Neut # (Auto) 7.2 H (1.5-6.6) 10^3/uL Lymph # (Auto) 1.9 (1.5-3.5) 10^3/uL [place] # (Auto) 0.8 (0.0-1.0) 10^3/uL Eos # (Auto) 0.1 (0.0-0.7) 10^3/uL Baso # (Auto) 0.1 (0.0-0.1) 10^3/uL Absolute Nucleated RBC 0.00 x10^3/uL Nucleated RBC % 0.0 /100WBC Sodium 134 L (135-145) mmol/L Potassium 2.9 L 3.3 L (3.5-4.5) mmol/L Chloride 97 L (101-111) mmol/L Carbon Dioxide 29 (21-32) mmol/L Anion Gap 8.0 (6-13) BUN 10 (6-20) mg/dL Creatinine 0.5 L (0.6-1.3) mg/dL Estimated GFR (MDRD) 123 (>89) Glucose 93 (74-104) mg/dL Calcium 8.2 L (8.5-10.3) mg/dL Magnesium 1.5 L (1.7-2.3) mg/dL Total Bilirubin 0.5 (0.2-1.0) mg/dL AST 13 (10-42) IU/L ALT 6 L (10-60) IU/L Alkaline Phosphatase 70 (42-121) IU/L Total Protein 6.0 L (6.4-8.9) g/dL Albumin 3.6 (3.2-5.5) g/dL Globulin 2.4 (2.1-4.2) g/dL Albumin/Globulin Ratio 1.5 (1.0-2.2) Triglycerides mg/dL Cholesterol ( - 200) mg/dL LDL Cholesterol, Calc ( - 129) mg/dL VLDL Cholesterol mg/dL HDL Cholesterol (60 - ) mg/dL LDL/HDL Ratio (<4.4) Cholesterol/HDL Ratio (<4.4) Lipase (11-82) U/L TSH (0.34-5.60) uIU/mL Urine Color YELLOW Urine Clarity HAZY (CLEAR) Urine pH 6.0 (5.0-7.5) PH Ur Specific [place] 1.005 (1.002-1.030) Urine Protein NEGATIVE (NEGATIVE) mg/dL Urine Glucose (UA) NEGATIVE (NEGATIVE) mg/dL Urine Ketones NEGATIVE (NEGATIVE) mg/dL Urine Occult Blood NEGATIVE (NEGATIVE) Urine Nitrite NEGATIVE (NEGATIVE) Urine Bilirubin NEGATIVE (NEGATIVE) Urine Urobilinogen 0.2 (NORMAL) (NORMAL) E.U./dL Ur Leukocyte Esterase SMALL H (NEGATIVE) Urine RBC 0-5 (0-5) /HPF Urine WBC 6-10 H (0-5) /HPF Ur Squamous Epith Cells MANY Squamous H (<= Few) Urine Bacteria Many H (None Seen) /HPF Ur Microscopic Review INDICATED Urine Culture Comments NOT INDICATED 03/19/25 Range/Units 17:26 WBC 12.0 H (4.8-10.8) x10^3/uL RBC 4.24 (4.20-5.40) 10^6/uL Hgb 11.2 L (12.0-16.0) g/dL Hct 34.9 L (37.0-47.0) % MCV 82.3 (81.0-99.0) fL MCH 26.4 L (27.0-31.0) pg MCHC 32.1 (32.0-36.0) g/dL RDW 17.0 H (12.0-15.0) % Plt Count 397 (130-450) 10^3/uL MPV 7.9 (7.9-10.8) fL Neut # (Auto) 7.8 H (1.5-6.6) 10^3/uL Lymph # (Auto) 3.0 (1.5-3.5) 10^3/uL [place] # (Auto) 1.0 (0.0-1.0) 10^3/uL Eos # (Auto) 0.1 (0.0-0.7) 10^3/uL Baso # (Auto) 0.1 (0.0-0.1) 10^3/uL Absolute Nucleated RBC 0.00 x10^3/uL Nucleated RBC % 0.0 /100WBC Sodium 130 L (135-145) mmol/L Potassium 2.8 L (3.5-4.5) mmol/L Chloride 93 L (101-111) mmol/L Carbon Dioxide 28 (21-32) mmol/L Anion Gap 9.0 (6-13) BUN 12 (6-20) mg/dL Creatinine 0.5 L (0.6-1.3) mg/dL Estimated GFR (MDRD) 123 (>89) Glucose 105 H (74-104) mg/dL Calcium 8.9 (8.5-10.3) mg/dL Magnesium 1.6 L (1.7-2.3) mg/dL Total Bilirubin 0.5 (0.2-1.0) mg/dL AST 14 (10-42) IU/L ALT 6 L (10-60) IU/L Alkaline Phosphatase 73 (42-121) IU/L Total Protein 6.6 (6.4-8.9) g/dL Albumin 4.0 (3.2-5.5) g/dL Globulin 2.6 (2.1-4.2) g/dL Albumin/Globulin Ratio 1.5 (1.0-2.2) Triglycerides 111 mg/dL Cholesterol 153 ( - 200) mg/dL LDL Cholesterol, Calc 75 ( - 129) mg/dL VLDL Cholesterol 22 mg/dL HDL Cholesterol 56 L (60 - ) mg/dL LDL/HDL Ratio 1.3 (<4.4) Cholesterol/HDL Ratio 2.7 (<4.4) Lipase < 10 L (11-82) U/L TSH 1.02 (0.34-5.60) uIU/mL Urine Color Urine Clarity (CLEAR) Urine pH (5.0-7.5) PH Ur Specific [place] (1.002-1.030) Urine Protein (NEGATIVE) mg/dL Urine Glucose (UA) (NEGATIVE) mg/dL Urine Ketones (NEGATIVE) mg/dL Urine Occult Blood (NEGATIVE) Urine Nitrite (NEGATIVE) Urine Bilirubin (NEGATIVE) Urine Urobilinogen (NORMAL) E.U./dL Ur Leukocyte Esterase (NEGATIVE) Urine RBC (0-5) /HPF Urine WBC (0-5) /HPF Ur Squamous Epith Cells (<= Few) Urine Bacteria (None Seen) /HPF Ur Microscopic Review Urine Culture Comments Diagnostic Imaging Diagnostic Imaging Results: positive Final report reviewed Diagnostic Imaging Comments: 03-19-2025 CT AP with contrast, compared to 01-30-2025. Personally reviewed and interpreted by me. Notably dilated loops of small and large bowel throughout with stool burden predominantly in the distal sigmoid rectal region. No discrete transition point identified. No evidence of perforation. Gastric wall thickening noted. Sepsis Event Note (H) Evaluation Current Stage of Sepsis: Ruled out Assessment/Plan Problem List (1) Ileus: (2) Diarrhea: (3) Colitis: Impression: Acute episodes of profuse non-bloody watery diarrhea, with reported nighttime symptoms in the setting of recent constipation and laxative use. Now with bloating and occasional abdominal cramping. Last BM yesterday at noon. No fevers, nausea or vomiting. Fair appetite. No recent antibiotic use or travels. No hx of abdominal surgeries. No recent immobility. Has been taking chronic opioids for oral pain without significant changes. Suspect this is medication related colitis/ileus. Possible in the setting of inflammatory bowel disease given her hx of recurrent diarrhea and constipation. Unlikely infectious-zosyn initially started for empiric treatment, this has been stopped. -Fluids, LR 125ml -Stool studies ordered -Will trial fleet enema -If minimal disimpaction, may consider gastrografin SBFT challenge -Simethicone prn (4) Hypokalemia: (5) Hypomagnesemia: Impression: Resolving with repletion. K 2.8 -> 3.3. Likely related to GI losses. Patient has also been taking home potassium tablets, suspect related to chronic magnesium losses. Patient also on chronic PPIs -Continue Mg and K+ repletion. (6) Anemia: Impression: Hgb 11.2 -> 9.7. Likely dilutional anemia, but will closely monitor given her history of upper GI bleeds and ulcers. Last colonoscopy few years back and normal. -Stopped NSAIDs -Monitor H&H -Consider colonoscopy as outpatient given her history of bleeding, weight loss (~30lbs in the last month, though could be nutritional d/t oral pain). (7) Tobacco dependence: Impression: Current 1/2 pack every day smoker. NRT, cessation counseling offered and declined at this time. (8) COPD (chronic obstructive pulmonary disease): Impression: Stable on 2-4L NC. No changes to cough or sputum. Albuterol prn.
[2025-03-20] MEDS: MAGNESIUM OXIDE 400 MG TABLET PO SCH (08:11)
[2025-03-20] MEDS: POTASSIUM CHLORIDE 20 MEQ TABLET PO SCH (08:12)
[2025-03-20] MEDS: NICOTINE 14 MG PATCH TOP PRN (08:12)
[2025-03-20] MEDS: MAGNESIUM SULFATE 1 GM in SODIUM CHLORIDE 0.9% 50 ML IV ONE (08:13)
[2025-03-20] MEDS ORDERED: [UNRECOGNIZED DRUG - MIXTURE] INH SCH (09:00)
[2025-03-20] MEDS: CHOLECALCIFEROL 25 MCG TABLET PO SCH (09:51)
[2025-03-20] MEDS: VENLAFAXINE ER 75 MG CAPSULE PO SCH (09:51)
[2025-03-20 10:01] LABS: ESTIMATED AVERAGE GLUCOSE 111 mg/dL (70-100); HEMOGLOBIN A1c% 5.5 % (4.27-6.07)
[2025-03-20] MEDS: POTASSIUM CHLOR 10 MEQ/100 ML 10 MEQ/100 ML BAG IV SCH (10:06)
[2025-03-20] MEDS: SIMETHICONE CHEW 80 MG TABLET PO PRN (10:14)
--- NOTE | 2025-03-20 11:26 | PROVIDER PROGRESS NOTE ---
Current Medications Current Medications Current Medications: Current Medications Generic Name Dose Route Start Last Admin Trade Name Freq PRN Reason Stop Dose Admin Acetaminophen 650 mg 03/19/25 22:35 Acetaminophen 325 Mg Tablet PO Q6H PRN pain, fever Alcohol 1 amp 03/19/25 23:00 03/20/25 08:12 Ethyl Alcohol 62% Swab Ampule MATT 1 amp BID ESTER Administration Amlodipine Besylate 5 mg 03/20/25 09:00 03/20/25 09:51 Amlodipine 5 Mg Tablet PO 5 mg BID ESTER Administration Benzonatate 100 mg 03/19/25 22:35 Benzonatate 100 Mg Capsule PO TID PRN Cough Budesonide 0.5 mg 03/20/25 19:00 Budesonide 0.5 Mg/2 Ml Neb INH RTBID ESTER Calamine 1 applic 03/19/25 22:39 Calamine/Zinc Oxide 177 Ml Bottle TOP PRN PRN SKIN CARE Carboxymethylcellulose 1 drops 03/19/25 22:39 Carboxymethylcellulose Ophth Drops EACHEYE PRN PRN Dry Eye Cholecalciferol 50 mcg 03/20/25 09:00 03/20/25 09:51 Cholecalciferol 25 Mcg Tablet PO 50 mcg DAILY ESTER Administration Formoterol Fumarate 20 mcg 03/20/25 19:00 Formoterol Fumarate Neb 20 Mcg/2 Ml INH RTBID ESTER Hydrochlorothiazide 25 mg 03/20/25 09:00 03/20/25 09:51 Hydrochlorothiazide 25 Mg Tablet PO 25 mg DAILY ESTER Administration Lactated Ringer's 1,000 mls @ 125 mls/hr 03/19/25 23:00 03/20/25 10:06 Lr IV 125 mls/hr .Q8H ESTER Infusion Potassium Chloride 10 meq in 100 mls @ 100 mls/hr 03/20/25 08:00 03/20/25 10:11 Potassium Chloride IV 03/20/25 11:59 50 mls/hr Q1H ESTER Infusion Ketorolac Tromethamine 15 mg 03/19/25 22:35 Ketorolac 15 Mg/Ml Vial IVP 03/22/25 22:34 Q8H PRN Severe Pain (Level 7-10) Lisinopril 40 mg 03/20/25 01:00 03/20/25 09:50 Lisinopril 20 Mg Tablet PO 40 mg DAILY ESTER Administration Lorazepam 0.5 mg 03/19/25 22:32 03/20/25 00:58 Lorazepam 0.5 Mg Tablet PO 0.5 mg BID PRN Administration ANXIETY Magnesium Oxide 400 mg 03/20/25 08:00 03/20/25 08:11 Magnesium Oxide 400 Mg Tablet PO 400 mg DAILYWM ESTER Administration Nicotine 1 patch 03/20/25 07:26 03/20/25 08:12 Nicotine 14 Mg Patch TOP 1 patch DAILY PRN Administration Nicotine Craving Ondansetron HCl 4 mg 03/19/25 22:35 Ondansetron 4 Mg/2 Ml Vial IVP Q8H PRN Nausea / Vomiting Oxycodone HCl 5 mg 03/19/25 22:32 03/20/25 08:11 Oxycodone 5 Mg Tablet PO 5 mg BID PRN Administration pain Pantoprazole Sodium 40 mg 03/20/25 07:00 03/20/25 06:29 Pantoprazole 40 Mg Tablet PO 40 mg BIDAC ESTER Administration Phenol/Menthol 2 sprays 03/19/25 22:39 Phenol Throat [place] 177 Ml MM Q2HR PRN Throat Pain Potassium Chloride 20 meq 03/20/25 08:00 03/20/25 08:12 Potassium Chloride 20 Meq Tablet PO 20 meq DAILYWM ESTER Administration Simethicone 80 mg 03/20/25 09:56 03/20/25 10:14 Simethicone Chew 80 Mg Tablet PO 80 mg Q6H PRN Administration Gas Throat Lozenges 1 lozenge 03/19/25 22:39 Benzocaine/Menthol Lozenge MM Q2HR PRN Throat pain Venlafaxine HCl 150 mg 03/20/25 09:00 03/20/25 09:51 Venlafaxine Er 75 Mg Capsule PO 150 mg DAILY ESTER Administration Witch Pamela/Glycerin 1 pad 03/19/25 22:39 Witch Pamela/Glycerin 1 Pad TOP PRN PRN ITCHING Objective Vital Signs/Intake & Output Vital Signs: Vital Signs x48h Temp Pulse Pulse Resp BP Pulse Ox O2 Flow Rate 03/20/25 07:58 37.5 C 113 H 20 97 4 03/20/25 04:00 37.2 C 101 H 16 171/98 H 93 4 Intake & Output: Intake & Output 03/17/25 03/18/25 03/19/25 03/20/25 23:59 23:59 23:59 23:59 Intake Total 1100 / 1100 1943 Balance 1099 / 1099 Weight (kg) 53 kg Lab Results 03/20/25 04:21 03/20/25 04:21 Other Labs: Lab Results x24hrs 03/20/25 03/19/25 03/19/25 Range/Units 04:21 23:09 20:35 WBC 10.2 (4.8-10.8) x10^3/uL RBC 3.71 L (4.20-5.40) 10^6/uL Hgb 9.7 L (12.0-16.0) g/dL Hct 31.0 L (37.0-47.0) % MCV 83.6 (81.0-99.0) fL MCH 26.1 L (27.0-31.0) pg MCHC 31.3 L (32.0-36.0) g/dL RDW 16.8 H (12.0-15.0) % Plt Count 342 (130-450) 10^3/uL MPV 8.2 (7.9-10.8) fL Neut # (Auto) 7.2 H (1.5-6.6) 10^3/uL Lymph # (Auto) 1.9 (1.5-3.5) 10^3/uL Bond # (Auto) 0.8 (0.0-1.0) 10^3/uL Eos # (Auto) 0.1 (0.0-0.7) 10^3/uL Baso # (Auto) 0.1 (0.0-0.1) 10^3/uL Absolute Nucleated RBC 0.00 x10^3/uL Nucleated RBC % 0.0 /100WBC Sodium 134 L (135-145) mmol/L Potassium 2.9 L 3.3 L (3.5-4.5) mmol/L Chloride 97 L (101-111) mmol/L Carbon Dioxide 29 (21-32) mmol/L Anion Gap 8.0 (6-13) BUN 10 (6-20) mg/dL Creatinine 0.5 L (0.6-1.3) mg/dL Estimated GFR (MDRD) 123 (>89) Glucose 93 (74-104) mg/dL Estimat Average Glucose (70-100) mg/dL Hemoglobin A1c % (4.27-6.07) % Calcium 8.2 L (8.5-10.3) mg/dL Magnesium 1.5 L (1.7-2.3) mg/dL Total Bilirubin 0.5 (0.2-1.0) mg/dL AST 13 (10-42) IU/L ALT 6 L (10-60) IU/L Alkaline Phosphatase 70 (42-121) IU/L Total Protein 6.0 L (6.4-8.9) g/dL Albumin 3.6 (3.2-5.5) g/dL Globulin 2.4 (2.1-4.2) g/dL Albumin/Globulin Ratio 1.5 (1.0-2.2) Triglycerides mg/dL Cholesterol ( - 200) mg/dL LDL Cholesterol, Calc ( - 129) mg/dL VLDL Cholesterol mg/dL HDL Cholesterol (60 - ) mg/dL LDL/HDL Ratio (<4.4) Cholesterol/HDL Ratio (<4.4) Lipase (11-82) U/L TSH (0.34-5.60) uIU/mL Urine Color YELLOW Urine Clarity HAZY (CLEAR) Urine pH 6.0 (5.0-7.5) PH Ur Specific [place] 1.005 (1.002-1.030) Urine Protein NEGATIVE (NEGATIVE) mg/dL Urine Glucose (UA) NEGATIVE (NEGATIVE) mg/dL Urine Ketones NEGATIVE (NEGATIVE) mg/dL Urine Occult Blood NEGATIVE (NEGATIVE) Urine Nitrite NEGATIVE (NEGATIVE) Urine Bilirubin NEGATIVE (NEGATIVE) Urine Urobilinogen 0.2 (NORMAL) (NORMAL) E.U./dL Ur Leukocyte Esterase SMALL H (NEGATIVE) Urine RBC 0-5 (0-5) /HPF Urine WBC 6-10 H (0-5) /HPF Ur Squamous Epith Cells MANY Squamous H (<= Few) Urine Bacteria Many H (None Seen) /HPF Ur Microscopic Review INDICATED Urine Culture Comments NOT INDICATED 03/19/25 Range/Units 17:26 WBC 12.0 H (4.8-10.8) x10^3/uL RBC 4.24 (4.20-5.40) 10^6/uL Hgb 11.2 L (12.0-16.0) g/dL Hct 34.9 L (37.0-47.0) % MCV 82.3 (81.0-99.0) fL MCH 26.4 L (27.0-31.0) pg MCHC 32.1 (32.0-36.0) g/dL RDW 17.0 H (12.0-15.0) % Plt Count 397 (130-450) 10^3/uL MPV 7.9 (7.9-10.8) fL Neut # (Auto) 7.8 H (1.5-6.6) 10^3/uL Lymph # (Auto) 3.0 (1.5-3.5) 10^3/uL [place] # (Auto) 1.0 (0.0-1.0) 10^3/uL Eos # (Auto) 0.1 (0.0-0.7) 10^3/uL Baso # (Auto) 0.1 (0.0-0.1) 10^3/uL Absolute Nucleated RBC 0.00 x10^3/uL Nucleated RBC % 0.0 /100WBC Sodium 130 L (135-145) mmol/L Potassium 2.8 L (3.5-4.5) mmol/L Chloride 93 L (101-111) mmol/L Carbon Dioxide 28 (21-32) mmol/L Anion Gap 9.0 (6-13) BUN 12 (6-20) mg/dL Creatinine 0.5 L (0.6-1.3) mg/dL Estimated GFR (MDRD) 123 (>89) Glucose 105 H (74-104) mg/dL Estimat Average Glucose 111 H (70-100) mg/dL Hemoglobin A1c % 5.5 (4.27-6.07) % Calcium 8.9 (8.5-10.3) mg/dL Magnesium 1.6 L (1.7-2.3) mg/dL Total Bilirubin 0.5 (0.2-1.0) mg/dL AST 14 (10-42) IU/L ALT 6 L (10-60) IU/L Alkaline Phosphatase 73 (42-121) IU/L Total Protein 6.6 (6.4-8.9) g/dL Albumin 4.0 (3.2-5.5) g/dL Globulin 2.6 (2.1-4.2) g/dL Albumin/Globulin Ratio 1.5 (1.0-2.2) Triglycerides 111 mg/dL Cholesterol 153 ( - 200) mg/dL LDL Cholesterol, Calc 75 ( - 129) mg/dL VLDL Cholesterol 22 mg/dL HDL Cholesterol 56 L (60 - ) mg/dL LDL/HDL Ratio 1.3 (<4.4) Cholesterol/HDL Ratio 2.7 (<4.4) Lipase < 10 L (11-82) U/L TSH 1.02 (0.34-5.60) uIU/mL Urine Color Urine Clarity (CLEAR) Urine pH (5.0-7.5) PH Ur Specific [place] (1.002-1.030) Urine Protein (NEGATIVE) mg/dL Urine Glucose (UA) (NEGATIVE) mg/dL Urine Ketones (NEGATIVE) mg/dL Urine Occult Blood (NEGATIVE) Urine Nitrite (NEGATIVE) Urine Bilirubin (NEGATIVE) Urine Urobilinogen (NORMAL) E.U./dL Ur Leukocyte Esterase (NEGATIVE) Urine RBC (0-5) /HPF Urine WBC (0-5) /HPF Ur Squamous Epith Cells (<= Few) Urine Bacteria (None Seen) /HPF Ur Microscopic Review Urine Culture Comments Assessment/Plan Problem List (1) Ileus: (2) Diarrhea: (3) Acute hypokalemia: (4) Hypomagnesemia:
[2025-03-20] MEDS ORDERED: DIATR MEGLU/DIATRIZOATE SODIUM 120 ML BOTTLE ONE (11:51)
--- NOTE | 2025-03-20 13:34 | PHARMACY PROGRESS NOTE ---
Best Possible Medication History Admit Date and Time: 03/19/25 2233 Home Medications Medication Instructions Recorded Confirmed Type venlafaxine 150 mg 150 mg PO DAILY #90 caps 12/2903/19/25 Rx capsule,extended release 24 hr fluticasone 250 mcg-salmeterol 50 1 inh inhalation BID #60 ea 11/07/24 03/20/25 Rx mcg/dose blistr powdr for inhalation (Advair Diskus) Held on 03/19/25. Instructions: Per Patient amlodipine 5 mg tablet 5 mg PO BID 12/07/24 5 History lisinopril 40 mg tablet 40 mg PO DAILY 12/07/2403/07 History pantoprazole 40 mg tablet,delayed 40 mg PO BIDAC 6 wee ks #84 tabs 01/31/25 03/19/25 Rx release hydrochlorothiazide 25 mg tablet 25 mg PO DAILY hypert ension #90 02/13/25 03/19/25 Rx tabs potassium chloride 20 mEq 20 meq PO DAILYWM #90 tabs 1 03/20/25 Rx tablet,extended release(part/cryst) (Klor-Con M) cholecalciferol (vitamin D3) 50 50 mcg PO DAILY 03/20/25 History mcg (2,000 unit) capsule lorazepam 0.5 mg tablet 0.5 mg PO BID PRN Anxiety 03/20/25 History omeprazole 40 mg capsule,delayed 40 mg PO DAILY 03/20/25 History release Held on 03/20/25. Instructions: pt is out of med Processed by: Pharmacy Medications reviewed in ED?: Yes Medication History completed: Yes Patient Interview: Completed Secondary Source(s): Insurance records [facility] Statement: As the person ultimately responsible for medication therapy, providers are able to order a medication from an existing home medication list in [facility] via the "Reconcile Routine" prior to Confirmation of that medication by sales support engineer. Such practice is discouraged except when the physician, in their clinical judgment, deems that a medical need exists for a medication without regard to previous use.
[2025-03-20] MEDS: MINERAL OIL ENEMA 133 ML BOTTLE RC ONE (14:24)
[2025-03-20] MEDS: ACETAMINOPHEN 500 MG TABLET PO SCH (22:47)
--- NOTE | 2025-03-21 07:51 | PROVIDER PROGRESS NOTE ---
Subjective Prog Note Date Prog Note Date: 03/21/25 Prog Note Time: 07:51 Subjective Subjective: Patient having improved abdominal pain today. She is being managed with some pain medications including oral opiates. She received 5 mg oxycodone this morning. Had a small amount of stool pass this morning, and she claims she is passing gas. Abdominal distension somewhat improved. Her labs have normalized. Otherwise tolerating oral intake without concerns. Remains without fevers, chills, nausea or vomiting. Current Medications Current Medications Current Medications: Current Medications Generic Name Dose Route Start Last Admin Trade Name Freq PRN Reason Stop Dose Admin Acetaminophen 1,000 mg 03/20/25 23:00 03/21/25 06:04 Acetaminophen 500 Mg Tablet PO 1,000 mg TID ESTER Administration Alcohol 1 amp 03/19/25 23:00 03/20/25 21:30 Ethyl Alcohol 62% Swab Ampule MATT 1 amp BID ESTER Administration Amlodipine Besylate 5 mg 03/20/25 09:00 03/20/25 21:30 Amlodipine 5 Mg Tablet PO 5 mg BID ESTER Administration Benzonatate 100 mg 03/19/25 22:35 Benzonatate 100 Mg Capsule PO TID PRN Cough Budesonide 0.5 mg 03/20/25 19:00 Budesonide 0.5 Mg/2 Ml Neb INH RTBID ESTER Calamine 1 applic 03/19/25 22:39 Calamine/Zinc Oxide 177 Ml Bottle TOP PRN PRN SKIN CARE Carboxymethylcellulose 1 drops 03/19/25 22:39 Carboxymethylcellulose Ophth Drops EACHEYE PRN PRN Dry Eye Cholecalciferol 50 mcg 03/20/25 09:00 03/20/25 09:51 Cholecalciferol 25 Mcg Tablet PO 50 mcg DAILY ESTER Administration Formoterol Fumarate 20 mcg 03/20/25 19:00 Formoterol Fumarate Neb 20 Mcg/2 Ml INH RTBID ESTER Hydrochlorothiazide 25 mg 03/20/25 09:00 03/20/25 09:51 Hydrochlorothiazide 25 Mg Tablet PO 25 mg DAILY ESTER Administration Lisinopril 40 mg 03/20/25 01:00 03/20/25 09:50 Lisinopril 20 Mg Tablet PO 40 mg DAILY ESTER Administration Lorazepam 0.5 mg 03/19/25 22:32 03/20/25 21:30 Lorazepam 0.5 Mg Tablet PO 0.5 mg BID PRN Administration ANXIETY Magnesium Oxide 400 mg 03/20/25 08:00 03/20/25 08:11 Magnesium Oxide 400 Mg Tablet PO 400 mg DAILYWM ESTER Administration Nicotine 1 patch 03/20/25 07:26 03/20/25 08:12 Nicotine 14 Mg Patch TOP 1 patch DAILY PRN Administration Nicotine Craving Ondansetron HCl 4 mg 03/19/25 22:35 Ondansetron 4 Mg/2 Ml Vial IVP Q8H PRN Nausea / Vomiting Oxycodone HCl 5 mg 03/20/25 16:21 03/21/25 06:05 Oxycodone 5 Mg Tablet PO 5 mg Q6H PRN Administration pain Pantoprazole Sodium 40 mg 03/20/25 07:00 03/21/25 06:05 Pantoprazole 40 Mg Tablet PO 40 mg BIDAC ESTER Administration Phenol/Menthol 2 sprays 03/19/25 22:39 Phenol Throat [place] 177 Ml MM Q2HR PRN Throat Pain Potassium Chloride 20 meq 03/20/25 08:00 03/20/25 08:12 Potassium Chloride 20 Meq Tablet PO 20 meq DAILYWM ESTER Administration Simethicone 80 mg 03/20/25 09:56 03/21/25 06:04 Simethicone Chew 80 Mg Tablet PO 80 mg Q6H PRN Administration Gas Sodium Biphosphate/Sodium Phosphate 133 ml 03/21/25 08:00 Saline Enema 133 Ml Bottle RC ONCE ESTER Throat Lozenges 1 lozenge 03/19/25 22:39 Benzocaine/Menthol Lozenge MM Q2HR PRN Throat pain Venlafaxine HCl 150 mg 03/20/25 09:00 03/20/25 09:51 Venlafaxine Er 75 Mg Capsule PO 150 mg DAILY ESTER Administration Witch Pamela/Glycerin 1 pad 03/19/25 22:39 Witch Pamela/Glycerin 1 Pad TOP PRN PRN ITCHING Objective Vital Signs/Intake & Output Reviewed Vital Signs: Yes Vital Signs: Vital Signs x48h Temp Pulse Resp BP Pulse Ox 03/21/25 04:00 36.8 C 88 19 155/89 H 89 L 03/21/25 00:00 36.9 C 83 17 121/83 93 Intake & Output: Intake & Output 03/18/25 03/19/25 03/20/25 03/21/25 23:59 23:59 23:59 23:59 Intake Total 1100 / 1100 4176 / 4176 600 / 600 Balance 1100 / 1100 4176 / 4176 600 / 600 Weight (kg) 53 kg Objective General Appearance: positive No acute distress and Alert Eyes Bilateral: positive Normal inspection, PERRL, EOMI and Conjunctivae nml ENT: positive ENT inspection nml and No signs of dehydration Neck: positive Nml inspection and No JVD Respiratory: positive No respiratory distress (on RA) and Rhonchi (mild expiratory rhonchi at the base) Cardiovascular: positive Regular rate & rhythm and No murmur Abdomen: positive Non-tender and Other (Distended); negative Guarding or Rebound Skin: positive Color nml, Warm and Dry Extremities: positive No pedal edema Neurologic/Psychiatric: positive Oriented x3 and Mood/affect nml Lab Results 03/21/25 08:08 03/21/25 08:08 Other Labs: Lab Results x24hrs 03/19/25 Range/Units 17:26 Estimat Average Glucose 111 H (70-100) mg/dL Hemoglobin A1c % 5.5 (4.27-6.07) % Diagnostic Imaging Diagnostic Imaging Results: positive Final report reviewed Diagnostic Imaging Comments: 03-19-2025 CT AP with contrast, compared to 01-30-2025. Personally reviewed and interpreted by me. Notably dilated loops of small and large bowel throughout, with stool burden predominantly in the distal sigmoid rectal region. No discrete transition point identified. No evidence of perforation. Gastric wall thickening noted. Other Results/Comments Other Results/Comments: 03-19-2025 UA contaminated sample Sepsis Event Note (H) Evaluation Current Stage of Sepsis: Ruled out Assessment/Plan Problem List (1) Ileus: (2) Diarrhea: Qualifiers: Diarrhea type: unspecified type Qualified Code(s): R19.7 - Diarrhea, unspecified (3) Colitis: Impression: Improving slightly, passing gas, small amount of stool this AM Suspect she has some chronic constipation that was on having some overflow diarrhea in the days prior to admission. Then this was made worse by antidiarrheals. The fact that she was not passing gas is supportive of the fact that she probably had a ileus which would be more explained by a viral enteritis though her symptoms from that were overall mild. There is other alternatives including IBD given history of recurrent diarrhea and constipation. She has never had any blood in her stool. Unlikely to be bacterial infectious. She received 1 dose of antimicrobials on admission, but has not been continued. -Will trial saline enema today -If minimal disimpaction with this still, will consider gastrografin SBFT challenge -Recommend she start on fiber supplementation versus daily osmotic laxative to achieve regularity -Normal diet as tolerated -Mobility encouraged (4) Hypokalemia: (5) Hypomagnesemia: Impression: Resolved K 2.9-> 3.6. Mg 1.5 -> 1.7. Likely related to GI losses and suspect chronic magnesium losses, potentially from PPIs. Patient has been taking home potassium tablets. -If she remains hospitalized, recheck her electrolytes in the morning to ensure stability -Continue magnesium supplementation indefinitely (6) Anemia: Impression: Asymptomatic. She is having no lightheadedness dizziness. Hgb 9.7 ->10.2. Likely dilutional anemia, however monitor given her history of upper GI bleeds and ulcers. Last colonoscopy few years back and normal. -Stopped NSAIDs -Should have chronic anemia workup in the outpatient, possible hematology referral (7) Tobacco dependence: Impression: Current 1/2 pack every day smoker. Patient remains precontemplative post smoking cessation counseling. -Will encourage NRT on discharge (8) COPD (chronic obstructive pulmonary disease): Impression: Stable now on RA. No changes to cough or sputum. -Albuterol prn.
[2025-03-21] MEDS ORDERED: SALINE ENEMA 133 ML BOTTLE RC SCH (08:00)
[2025-03-21] MEDS ORDERED: POTASSIUM CHLOR 10 MEQ/100 ML 10 MEQ/100 ML BAG IV SCH (08:00)
[2025-03-21 08:15] LABS: HCT - HEMATOCRIT 32.9 % (37.0-47.0); HGB - HEMOGLOBIN 10.2 g/dL (12.0-16.0); MEAN PLATELET VOLUME 7.8 fL (7.9-10.8); NRBC ABSOLUTE COUNT (AUTO) 0.00 x10^3/uL; NUCLEATED RED BLOOD CELLS AUTO 0.0 /100WBC; PLT - PLATELET COUNT 329 10^3/uL (130-450); RED CELL DISTRIBUTION WIDTH 16.7 % (12.0-15.0)
[2025-03-21] MEDS: FORMOTEROL FUMARATE NEB 20 MCG/2 ML INH SCH (08:29)
[2025-03-21] MEDS: BUDESONIDE 0.5 MG/2 ML NEB INH SCH (08:29)
[2025-03-21 08:32] LABS: BUN - BLOOD UREA NITROGEN 7.0 mg/dL (6-20); CARBON DIOXIDE - CO2 27.0 mmol/L (21-32); CREATININE 0.5 mg/dL (0.6-1.3); GFR - MDRD 123.0 (>89)
[2025-03-21] MEDS: ONDANSETRON 4 MG/2 ML VIAL IVP PRN (14:15)
[2025-03-21] MEDS ORDERED: DIATR MEGLU/DIATRIZOATE SODIUM 120 ML BOTTLE ONE (14:18)
[2025-03-21] MEDS: DIATR MEGLU/DIATRIZOATE SODIUM 120 ML BOTTLE PO ONE (15:13)
[2025-03-21] MEDS ORDERED: SODIUM CHLORIDE FLUSH 0.9% 10 ML SYRINGE IVP PRN (16:27)
[2025-03-21] MEDS: SODIUM CHLORIDE FLUSH 0.9% 10 ML SYRINGE IVP SCH (17:38)
[2025-03-21] MEDS: DEXTROSE 5%-0.45% NACL 1,000 ML IV STA (19:40)
--- NOTE | 2025-03-21 23:31 | XRAY Report ---
PROCEDURE: XR SBFT Challenge Panel INDICATIONS: Possible ileus vs sbo COMPARISON: CT abdomen pelvis with contrast 03/19/2025 CONTRAST: Gastrografin FINDINGS/IMPRESSION: There are multiple gas-filled and dilated loops of colon. Gas distended dilated loops of small bowel are also visualized. There is abnormal slow transit of ingested contrast throughout the small bowel. At 8 hours, no contrast is visualized in the colon and remains predominantly in loops of small bowel in the lower pelvis. Differential diagnostic considerations include small bowel obstruction versus ileus. Reviewed by: Doreen Marina MD, PhD on 03/21/2025 11:27 PM PDT Approved by: Doreen Marina MD, PhD on 03/21/2025 11:27 PM PDT Station ID: [id number]
[2025-03-22 06:08] LABS: HCT - HEMATOCRIT 34.7 % (37.0-47.0); HGB - HEMOGLOBIN 10.4 g/dL (12.0-16.0); MEAN PLATELET VOLUME 8.0 fL (7.9-10.8); PLT - PLATELET COUNT 337.0 10^3/uL (130-450); RED CELL DISTRIBUTION WIDTH 16.5 % (12.0-15.0)
[2025-03-22 06:26] LABS: BUN - BLOOD UREA NITROGEN 8.0 mg/dL (6-20); CARBON DIOXIDE - CO2 28.0 mmol/L (21-32); CREATININE 0.4 mg/dL (0.6-1.3); GFR - MDRD 159.0 (>89)
--- NOTE | 2025-03-22 09:43 | PROVIDER PROGRESS NOTE ---
Subjective Prog Note Date Prog Note Date: 03/22/25 Prog Note Time: 09:42 Subjective Pt reports feeling: No change Subjective: Patient is still distended. Had a pass of clear water this morning but no stool. Passing flatus and no nausea or vomiting. Fair appetite still and abdominal pain is well managed. Taking 5mg oxycodone approximately every 6 hours. Patient reports she feels a little more comfortable. She has still not had any stool output. She denies any nausea or vomiting. She does have an appetite. Current Medications Current Medications Current Medications: Current Medications Generic Name Dose Route Start Last Admin Trade Name Freq PRN Reason Stop Dose Admin Acetaminophen 1,000 mg 03/20/25 23:00 03/22/25 06:26 Acetaminophen 500 Mg Tablet PO 1,000 mg TID ESTER Administration Alcohol 1 amp 03/19/25 23:00 03/22/25 08:17 Ethyl Alcohol 62% Swab Ampule MATT 1 amp BID ESTER Administration Amlodipine Besylate 5 mg 03/20/25 09:00 03/22/25 08:17 Amlodipine 5 Mg Tablet PO 5 mg BID ESTER Administration Benzonatate 100 mg 03/19/25 22:35 Benzonatate 100 Mg Capsule PO TID PRN Cough Budesonide 0.5 mg 03/20/25 19:00 03/22/25 08:45 Budesonide 0.5 Mg/2 Ml Neb INH Not Given RTBID ESTER Calamine 1 applic 03/19/25 22:39 Calamine/Zinc Oxide 177 Ml Bottle TOP PRN PRN SKIN CARE Carboxymethylcellulose 1 drops 03/19/25 22:39 Carboxymethylcellulose Ophth Drops EACHEYE PRN PRN Dry Eye Cholecalciferol 50 mcg 03/20/25 09:00 03/22/25 08:18 Cholecalciferol 25 Mcg Tablet PO 50 mcg DAILY ESTER Administration Formoterol Fumarate 20 mcg 03/20/25 19:00 03/22/25 08:46 Formoterol Fumarate Neb 20 Mcg/2 Ml INH Not Given RTBID ESTER Hydrochlorothiazide 25 mg 03/20/25 09:00 03/22/25 08:18 Hydrochlorothiazide 25 Mg Tablet PO 25 mg DAILY ESTER Administration Lisinopril 40 mg 03/20/25 01:00 03/22/25 08:18 Lisinopril 20 Mg Tablet PO 40 mg DAILY ESTER Administration Lorazepam 0.5 mg 03/19/25 22:32 03/22/25 08:18 Lorazepam 0.5 Mg Tablet PO 0.5 mg BID PRN Administration ANXIETY Magnesium Oxide 400 mg 03/20/25 08:00 03/22/25 08:18 Magnesium Oxide 400 Mg Tablet PO 400 mg DAILYWM ESTER Administration Nicotine 1 patch 03/20/25 07:26 03/21/25 16:00 Nicotine 14 Mg Patch TOP 1 patch DAILY PRN Administration Nicotine Craving Ondansetron HCl 4 mg 03/19/25 22:35 03/21/25 14:15 Ondansetron 4 Mg/2 Ml Vial IVP 4 mg Q8H PRN Administration Nausea / Vomiting Oxycodone HCl 5 mg 03/20/25 16:21 03/22/25 06:26 Oxycodone 5 Mg Tablet PO 5 mg Q6H PRN Administration pain Pantoprazole Sodium 40 mg 03/20/25 07:00 03/22/25 06:25 Pantoprazole 40 Mg Tablet PO 40 mg BIDAC ESTER Administration Phenol/Menthol 2 sprays 03/19/25 22:39 Phenol Throat [place] 177 Ml MM Q2HR PRN Throat Pain Potassium Chloride 20 meq 03/20/25 08:00 03/22/25 08:18 Potassium Chloride 20 Meq Tablet PO 20 meq DAILYWM ESTER Administration Simethicone 80 mg 03/20/25 09:56 03/21/25 06:04 Simethicone Chew 80 Mg Tablet PO 80 mg Q6H PRN Administration Gas Sodium Chloride 10 ml 03/21/25 17:00 03/22/25 08:18 Sodium Chloride Flush 0.9% 10 Ml Syringe IVP 10 ml 0100,0900,1700 ESTER Administration Sodium Chloride 10 ml 03/21/25 16:27 Sodium Chloride Flush 0.9% 10 Ml Syringe IVP PRN PRN Per Line Care protocol Throat Lozenges 1 lozenge 03/19/25 22:39 Benzocaine/Menthol Lozenge MM Q2HR PRN Throat pain Venlafaxine HCl 150 mg 03/20/25 09:00 03/22/25 08:18 Venlafaxine Er 75 Mg Capsule PO 150 mg DAILY ESTER Administration Witch Pamela/Glycerin 1 pad 03/19/25 22:39 Witch Pamela/Glycerin 1 Pad TOP PRN PRN ITCHING Objective Vital Signs/Intake & Output Reviewed Vital Signs: Yes Vital Signs: Vital Signs x48h Temp Pulse Resp BP Pulse Ox 03/22/25 04:00 36.8 C 84 18 146/90 H 92 Intake & Output: Intake & Output 03/19/25 03/20/25 03/21/25 03/22/25 23:59 23:59 23:59 23:59 Intake Total 1100 / 1100 4176 / 4176 1000 / 1000 1100 / 1100 Balance 1100 / 1100 4176 / 4176 1000 / 1000 1100 / 1100 Weight (kg) 53 kg Objective General Appearance: positive No acute distress and Alert Eyes Bilateral: positive Normal inspection, PERRL, EOMI and Conjunctivae nml ENT: positive ENT inspection nml and No signs of dehydration Neck: positive Nml inspection and No JVD Respiratory: positive No respiratory distress (on RA) and Rhonchi (mild expiratory rhonchi at the base) Cardiovascular: positive Regular rate & rhythm and No murmur Abdomen: positive Non-tender and Other (Distended); negative Guarding or Rebound Rectal: positive Non-tender and Other (Rectal exam was performed with title curative specialist present. Anal sphincter intact without fissure. No formed stool in rectal vault. No blood.) Back: positive Nml inspection Skin: positive Color nml, Warm and Dry Extremities: positive No pedal edema Neurologic/Psychiatric: positive Oriented x3 and Mood/affect nml Comments/Other: Abdomen still with distension similar to yesterday. Nontender to palpation without rebound or guarding. Transverse scar noted, no other surgical scars. No hernia. Rectal exam performed with no formed stool observed in rectal vault. Lab Results 03/22/25 05:48 03/22/25 05:48 Other Labs: Lab Results x24hrs 03/22/25 Range/Units 05:48 WBC 10.9 H (4.8-10.8) x10^3/uL RBC 4.07 L (4.20-5.40) 10^6/uL Hgb 10.4 L (12.0-16.0) g/dL Hct 34.7 L (37.0-47.0) % MCV 85.3 (81.0-99.0) fL MCH 25.6 L (27.0-31.0) pg MCHC 30.0 L (32.0-36.0) g/dL RDW 16.5 H (12.0-15.0) % Plt Count 337 (130-450) 10^3/uL MPV 8.0 (7.9-10.8) fL Sodium 131 L (135-145) mmol/L Potassium 3.2 L (3.5-4.5) mmol/L Chloride 97 L (101-111) mmol/L Carbon Dioxide 28 (21-32) mmol/L Anion Gap 6.0 (6-13) BUN 8 (6-20) mg/dL Creatinine 0.4 L (0.6-1.3) mg/dL Estimated GFR (MDRD) 159 (>89) Glucose 128 H (74-104) mg/dL Calcium 9.1 (8.5-10.3) mg/dL Diagnostic Imaging Diagnostic Imaging Results: positive Final report reviewed Diagnostic Imaging Comments: 03-21-2025 SBFT XR There is abnormal slow transit of ingested contrast throughout the small bowel. At 8 hours, no contrast is visualized in the colon and remains predominantly in loops of small bowel in the lower pelvis. 03-19-2025 CT AP with contrast, compared to 01-30-2025. Personally reviewed and interpreted by me. Notably dilated loops of small and large bowel throughout, with stool burden predominantly in the distal sigmoid rectal region. No discrete transition point identified. No evidence of perforation. Gastric wall thickening noted. Other Results/Comments Other Results/Comments: 03-19-2025 UA contaminated sample Sepsis Event Note (H) Evaluation Current Stage of Sepsis: Ruled out Assessment/Plan Problem List (1) Ileus: (2) Diarrhea: Qualifiers: Diarrhea type: unspecified type Qualified Code(s): R19.7 - Diarrhea, unspecified (3) Colitis: Impression: Slow improvement. She does report passing clear water this morning, likely contrast from yesterday's SBFT. All of this as well as passing gas is supportive that this is either a resolving ileus or just slow gastric transit. Very unlikely to be SBO. More generally, I think her chronic GI issues are mostly constipation driven. She likely has some overflow diarrhea and leakage that explains her episodes of incontinence. Suspect most of her symptoms are driven by damming of stool. Discussed her case with general surgery on 03/22. They are in agreement. Her only abdominal surgical hx is a . Other alternatives considered include IBD given history of recurrent diarrhea and constipation however she never had any blood in stool. Clinically she remains stable with fair appetite and no nausea. Passing flatus but no stool, her abdomen remains distended. Manual disimpaction was attempted 03/22 at bedside, however there was no stool in the rectal vault. Rectal exam was unremarkable. -Repeat abdominal X-ray Shows contrast movement to the colon. -Start MiraLAX 3 times daily -Prokinetic agent with bisacodyl -If still not passing stool, will add lactulose. -Has not responded to enemas, and likely not to repeat given her exam -Liquid diet as tolerated -Mobility encouraged -Discharge instructions to include likely daily MiraLAX and/or fiber supplementation. (4) Hypokalemia: (5) Hypomagnesemia: Impression: Likely related to GI losses and suspect chronic magnesium losses, potentially from PPIs. Patient has been taking home potassium tablets. -Continue to recheck her electrolytes in the morning to ensure stability -Replete K+ as necessary -Continue magnesium supplementation indefinitely (6) Anemia: Impression: Likely dilutional anemia. Hgb stable now 10.2 ->10.4. She is asymptomatic without lightheadedness dizziness. Will monitor given her history of upper GI bleeds and ulcers. Last colonoscopy few years back and normal. -Stopped NSAIDs -Should have chronic anemia workup in the outpatient, possible hematology referral (7) Tobacco dependence: Impression: Current 1/2 pack every day smoker. Patient remains precontemplative about stopping smoking. Smoking cessation counseling on admission and on hospital day 1. - Has received nicotine patch here -Will encourage to continue NRT on discharge (8) COPD (chronic obstructive pulmonary disease): Impression: Not in exacerbation. Was on some oxygen initially, suspect mostly related to her abdominal distention impairing diaphragmatic activity. Stable now on RA. No changes to cough or sputum. -Albuterol prn.
[2025-03-22] MEDS: POTASSIUM CHLORIDE 20 MEQ TABLET PO ONE (15:26)
--- NOTE | 2025-03-22 16:45 | CONSULTATION NOTE ---
History of Present Illness History of Present Illness HPI Comment/Other: 69F admitted with abdominal pain, diarrhea and constipation; questionable enteritis vs colitis. Now HD3; I was asked to see the patient by the hospitalist service for possible bowel obstruction. The patients endorses a few days of abdominal prior to admission. She has been struggling with constipation, but also having liquid diarrhea. On 03/08 she saw her PCP for 8d of constipation and was instructed to use laxitives, afterwhich she developed diarrhea. She was then admitted on 03/19 and initial imaging was suggestive of fecal impaction, and she was given enemas with some success. Yesterday a gastrografin challenge was completed with contrast in the distal small bowel. There has been no attempt at manual disimpaction. Today she tells me she has had a reduced appetitis, but her abdominal pain is better and has passed some stool and gas. She is known to me from UGIB from ashwin's ulcer last year, seen on inpatient EGD on 03/03/2024. She was started on PPI at that time. She was seen in outpatient follow up with plan for repeat EGD to ensure healing as well as screening colonoscopy, however she seems to have been lost to follow up since then, as those endoscopies were not completed. She is overall noncompliant with medications and has been off of her PPI for h/o UGIB from ashwin's ulcer last year. Also active smoking. Review of Hgb over last year: 02/2024: 7.4 (admission for bleeding ashwin's ulcer) 06/2024: 13-15 01/2025: 10.1 (admitted for anemia, neg CTA, Dr. Son saw as inpatient, restarted her PPI for presumed UGIB but no repeat EGD, instructed 6wk outpatient f/u EGD) PFSH Active Problems All Active Problems (Updated 03/21/25 @ 13:23 by Juan Mulligan DO) Anemia (Chronic) Colitis (Acute) Chronic, continuous use of opioids (Acute) Hypomagnesemia (Acute) Diarrhea (Acute) Ileus (Acute) Enteritis (Acute) Hypokalemia (Chronic) At risk for falls (Chronic) Alcohol dependence in sustained full remission (Chronic) Generalized anxiety disorder with panic attacks (Chronic) Agoraphobia (Chronic) COPD (chronic obstructive pulmonary disease) (Chronic) Polyarthralgia (Chronic) Peptic ulcer disease (Chronic) Depression, major, recurrent, moderate (Chronic) Tobacco dependence (Chronic 08/12/23) Medical History Medical History (Updated 03/21/25 @ 13:23 by Juan Mulligan DO) Osteoarthritis GERD (gastroesophageal reflux disease) CVA (cerebral vascular accident) Long-term use of high-risk medication Benzodiazepine dependence Chronic dental pain History of alcohol abuse Oral thrush Neck pain Pedal edema Screening for colorectal cancer Poor dentition Insomnia due to mental disorder Apnea Osteoporosis Last Prolia 02/21/2025 (MAC) Left ventricular hypertrophy by electrocardiogram Chronic pain Knee pain, bilateral Ashwin ulcer Gastric ulcer Kidney, malrotation Right Breast implant status HSV (herpes simplex virus) infection Raynaud's syndrome (10/26/22) Panic attack (10/26/22) Essential hypertension (01/11/23) Breast implant leak Generalized anxiety disorder Upper GI bleed Surgical History Surgical History (Updated 03/21/25 @ 01:51 by Clarisa Shah RN) History of repair of hiatal hernia History of bilateral breast implants History of section History of loop electrical excision procedure (LEEP) Abnormal findings on esophagogastroduodenoscopy (EGD) Upper GI bleed, 03/03/2024, Dr. Rees Family History Family History Mother Depressed Sister Leukemia Lung cancer Maternal grandmother Diabetes Social History Social History (Updated 03/19/25 @ 16:54 by Larry Izquierdo RN) Smoking Status: Current every day smoker Number of Years Smoked: 25 How many cigarettes a day do you smoke? (20 cigarettes=1 Pk): 20 Second hand tobacco smoke exposure: No Do you dip or chew tobacco?: No Do you vape?: No Patient requests smoking cessation consult: No Initiate information on smoking cessation: No Living arrangement: At home Marital Status: Living Condition: With friend(s) and Other Living Condition Notes: Unknown - see PCP note. Support Person: Yes Physical Activity: None Level: Independent Do you feel safe in your home environment?: Yes History of physical, verbal, emotional, or financial abuse?: No ETOH Use: None Substance Use: denies use Are you sexually active?: No Retired: Yes Service: No POLST Patient has POLST: No Meds/Allgy Home Medications Ambulatory Orders Medication Instructions Recorded Confirmed venlafaxine 150 mg 150 mg PO DAILY #90 caps 12/2903/19/25 capsule,extended release 24 hr fluticasone 250 mcg-salmeterol 50 1 inh inhalation BID #60 ea 11/07/24 03/20/25 mcg/dose blistr powdr for inhalation (Advair Diskus) Held on 03/19/25. Instructions: Per Patient amlodipine 5 mg tablet 5 mg PO BID 12/07/24 5 lisinopril 40 mg tablet 40 mg PO DAILY 12/07/2403/07 pantoprazole 40 mg tablet,delayed 40 mg PO BIDAC 6 wee ks #84 tabs 01/31/25 03/19/25 release hydrochlorothiazide 25 mg tablet 25 mg PO DAILY hypert ension #90 02/13/25 03/19/25 tabs potassium chloride 20 mEq 20 meq PO DAILYWM #90 tabs 1 03/20/25 tablet,extended release(part/cryst) (Klor-Con M) cholecalciferol (vitamin D3) 50 50 mcg PO DAILY 03/20/25 mcg (2,000 unit) capsule lorazepam 0.5 mg tablet 0.5 mg PO BID PRN Anxiety 03/20/25 omeprazole 40 mg capsule,delayed 40 mg PO DAILY 03/20/25 release Held on 03/20/25. Instructions: pt is out of med Allergies Allergies Allergy/AdvReac Type Severity Reaction Status Date / Time codeine AdvReac Mild Nausea Verified 03/19/25 16:46 Results Lab Results 03/22/25 05:48 03/22/25 05:48 Other Lab Results: Lab Results x24hrs 03/22/25 Range/Units 05:48 WBC 10.9 H (4.8-10.8) x10^3/uL RBC 4.07 L (4.20-5.40) 10^6/uL Hgb 10.4 L (12.0-16.0) g/dL Hct 34.7 L (37.0-47.0) % MCV 85.3 (81.0-99.0) fL MCH 25.6 L (27.0-31.0) pg MCHC 30.0 L (32.0-36.0) g/dL RDW 16.5 H (12.0-15.0) % Plt Count 337 (130-450) 10^3/uL MPV 8.0 (7.9-10.8) fL Sodium 131 L (135-145) mmol/L Potassium 3.2 L (3.5-4.5) mmol/L Chloride 97 L (101-111) mmol/L Carbon Dioxide 28 (21-32) mmol/L Anion Gap 6.0 (6-13) BUN 8 (6-20) mg/dL Creatinine 0.4 L (0.6-1.3) mg/dL Estimated GFR (MDRD) 159 (>89) Glucose 128 H (74-104) mg/dL Calcium 9.1 (8.5-10.3) mg/dL Diagnostic Imaging Results Diagnostic Imaging Results Comments: EXAM: [id number] CT/ABPEW ([id number]) PROCEDURE: CT Abdomen/Pelvis W INDICATIONS: abdominal pain and bloating CONTRAST: omni 300, 85ml TECHNIQUE: After the administration of intravenous contrast, a CT scan of the abdomen and pelvis was performed. Images were recorded and evaluated at appropriate window settings. Reformats: coronal and sagittal. For radiation dose reduction, the following was used: automated exposure control, adjustment of mA and/or kV according to patient size. COMPARISON: None. FINDINGS: Image quality: Diagnostic. Lower chest: Subsegmental atelectasis at the lungs bases. Bilateral breast implants with peripheral calcification. Liver: No contour-deforming mass. Gallbladder: Wall thickening and cholelithiasis. Biliary tree: Biliary duct dilation to 1 cm unchanged. Spleen: No splenomegaly. Pancreas: 5 mm pancreatic duct, unchanged. No discrete pancreatic lesion identified. Adrenals: Right adrenal adenoma, unchanged. Kidneys and ureters: No hydronephrosis. No contour-deforming mass. Stomach, bowel and peritoneum: Circumferential wall thickening of the descending colon with distention of ascending and transverse colon to 8.6 cm with air-fluid level. Appendix not identified. Prominent loops of small bowel in the mid abdomen with air-fluid levels but no discrete transition point identified. Low volume ascites. Lymph nodes: No central or retroperitoneal adenopathy. Vessels: Severe atherosclerosis. No aneurysm. Reproductive organs: Unremarkable. Bladder: No abnormal bladder wall thickening. No calcified bladder stones. Pelvic lymph nodes: No adenopathy by size criteria. Bones: Severe degenerative changes in the lower lumbar spine with L4-L5 anterolisthesis. No acute or aggressive osseous lesion or acute fracture. Other: Fluid containing right inguinal hernia. Pelvic floor prolapse. IMPRESSION: 1. Acute colitis with ileus. 2. Abnormally dilated loops of small bowel. Transition point not identified. This is favored to represent ileus though small bowel obstruction cannot be excluded due to compactness of bowel. 3. Cholelithiasis. 4. Chronic common bile duct dilation. 5. Chronic pancreatic duct dilation. Reviewed by: Frank Hidalgo MD on 03/19/2025 8:26 PM PDT EXAM: [id number] XR/SBFT PROCEDURE: XR SBFT Challenge Panel INDICATIONS: Possible ileus vs sbo COMPARISON: CT abdomen pelvis with contrast 03/19/2025 CONTRAST: Gastrografin FINDINGS/IMPRESSION: There are multiple gas-filled and dilated loops of colon. Gas distended dilated loops of small bowel are also visualized. There is abnormal slow transit of ingested contrast throughout the small bowel. At 8 hours, no contrast is visualized in the colon and remains predominantly in loops of small bowel in the lower pelvis. Differential diagnostic considerations include small bowel obstruction versus ileus. Reviewed by: Doreen Marina MD, PhD on 03/21/2025 11:27 PM PDT Approved by: Doreen Marina MD, PhD on 03/21/2025 11:27 PM PDT Review of Systems Status of ROS: 10 or more systems reviewed and unremarkable except as noted in history and below Exam Exam Vital Signs: Vital Signs x48h Temp Pulse Resp BP Pulse Ox 03/22/25 16:00 36.8 C 79 20 135/90 H 93 03/22/25 08:45 36.6 C 86 18 142/91 H 91 L Constitutional abnormal general appearance (chronically ill) and distress noted (mild) [facility] normocephalic Respiratory breath sounds equal bilaterally Cardiovascular normal heart rate noted Gastrointestinal tense distension, mild ttp, no guarding Rectal exam: normal tone, no blood, no rectal stool impaction Extremities normal to inspection Neurology no movement abnormality noted Psychiatry oriented x3 Skin skin color normal Conclusion/Plan Problem List (1) Diarrhea: Qualifiers: Diarrhea type: unspecified type Qualified Code(s): R19.7 - Diarrhea, unspecified (2) Anemia: (3) Chronic, continuous use of opioids: (4) Ashwin ulcer: Plan 69yoF HD3 with abdominal pain and distension associated with both constipation and diarrhea. Did not pass gastrograffin trial yesterday. Query component of chronic opioid-induced constipation with overflow fecal incontinence/liquid diarrhea, and related fecal impaction. - GURJIT at bedside today showed NO stool impaction; if present on admission this was resolved with enema's prior to my consult - Recommend repeat AXR to assess for passage of contrast into rectum. - if contrast has moved into rectum, ruling out SBO, recommend aggressive bowel regimen - recommend shelter pain mgmt plan that limits opioids/consider entereg to minimize opioid induced constipation Debra Rees DO, FACS General Surgeon, [facility] Lab Results 03/22/25 05:48 03/22/25 05:48
--- NOTE | 2025-03-23 01:45 | XRAY Report ---
PROCEDURE: XR Chest 1V INDICATIONS: shortness of breath TECHNIQUE: One view of the chest was acquired. COMPARISON: 06/27/2024 FINDINGS: Surgical changes and devices: ACDF hardware. Lungs and pleura: No pleural effusions or pneumothorax. No consolidation. Mediastinum: Mediastinal contours appear normal. Heart size is normal. Bones and chest wall: No suspicious bony lesions. Overlying soft tissues appear unremarkable. IMPRESSION: No acute cardiopulmonary process. Reviewed by: Benjamin Basilio MD on 03/23/2025 1:42 AM PDT Approved by: Benjamin Basilio MD on 03/23/2025 1:42 AM PDT Station ID: [id number]
--- NOTE | 2025-03-23 08:45 | PROVIDER PROGRESS NOTE ---
Subjective Prog Note Date Prog Note Date: 03/23/25 Prog Note Time: 08:44 Subjective Subjective: Patient is continuing to have just liquidy output brown-tinged. Mostly watery output from her stool. She is not having regular bowel movements yet. Still very distended abdomen. Patient appears tired. She has been up to the bathroom. Trying to mobilize her bowels. Denies any fevers or chills. No nausea or vomiting. She is hungry. She wants to advance her diet. Current Medications Current Medications Current Medications: Current Medications Generic Name Dose Route Start Last Admin Trade Name Freq PRN Reason Stop Dose Admin Acetaminophen 1,000 mg 03/20/25 23:00 03/23/25 05:54 Acetaminophen 500 Mg Tablet PO 1,000 mg TID ESTER Administration Alcohol 1 amp 03/19/25 23:00 03/22/25 21:31 Ethyl Alcohol 62% Swab Ampule MATT 1 amp BID ESTER Administration Amlodipine Besylate 5 mg 03/20/25 09:00 03/22/25 21:31 Amlodipine 5 Mg Tablet PO 5 mg BID ESTER Administration Benzonatate 100 mg 03/19/25 22:35 Benzonatate 100 Mg Capsule PO TID PRN Cough Budesonide 0.5 mg 03/20/25 19:00 03/22/25 19:19 Budesonide 0.5 Mg/2 Ml Neb INH Not Given RTBID ESTER Calamine 1 applic 03/19/25 22:39 Calamine/Zinc Oxide 177 Ml Bottle TOP PRN PRN SKIN CARE Carboxymethylcellulose 1 drops 03/19/25 22:39 Carboxymethylcellulose Ophth Drops EACHEYE PRN PRN Dry Eye Cholecalciferol 50 mcg 03/20/25 09:00 03/22/25 08:18 Cholecalciferol 25 Mcg Tablet PO 50 mcg DAILY ESTER Administration Formoterol Fumarate 20 mcg 03/20/25 19:00 03/22/25 19:19 Formoterol Fumarate Neb 20 Mcg/2 Ml INH Not Given RTBID ESTER Hydrochlorothiazide 25 mg 03/20/25 09:00 03/22/25 08:18 Hydrochlorothiazide 25 Mg Tablet PO 25 mg DAILY ESTER Administration Lisinopril 40 mg 03/20/25 01:00 03/22/25 08:18 Lisinopril 20 Mg Tablet PO 40 mg DAILY ESTER Administration Lorazepam 0.5 mg 03/19/25 22:32 03/22/25 23:49 Lorazepam 0.5 Mg Tablet PO 0.5 mg BID PRN Administration ANXIETY Magnesium Oxide 400 mg 03/20/25 08:00 03/22/25 08:18 Magnesium Oxide 400 Mg Tablet PO 400 mg DAILYWM ESTER Administration Nicotine 1 patch 03/20/25 07:26 03/21/25 16:00 Nicotine 14 Mg Patch TOP 1 patch DAILY PRN Administration Nicotine Craving Ondansetron HCl 4 mg 03/19/25 22:35 03/21/25 14:15 Ondansetron 4 Mg/2 Ml Vial IVP 4 mg Q8H PRN Administration Nausea / Vomiting Oxycodone HCl 5 mg 03/20/25 16:21 03/23/25 05:54 Oxycodone 5 Mg Tablet PO 5 mg Q6H PRN Administration pain Pantoprazole Sodium 40 mg 03/20/25 07:00 03/23/25 05:54 Pantoprazole 40 Mg Tablet PO 40 mg BIDAC ESTER Administration Phenol/Menthol 2 sprays 03/19/25 22:39 Phenol Throat [place] 177 Ml MM Q2HR PRN Throat Pain Polyethylene Glycol 17 gm 03/22/25 12:00 03/23/25 05:53 Polyethylene Glycol 3350 17 Gm Packet PO 17 gm TID ESTER Administration Potassium Chloride 20 meq 03/20/25 08:00 03/22/25 08:18 Potassium Chloride 20 Meq Tablet PO 20 meq DAILYWM ESTER Administration Simethicone 80 mg 03/20/25 09:56 03/22/25 18:09 Simethicone Chew 80 Mg Tablet PO 80 mg Q6H PRN Administration Gas Sodium Chloride 10 ml 03/21/25 17:00 03/22/25 23:50 Sodium Chloride Flush 0.9% 10 Ml Syringe IVP 10 ml 0100,0900,1700 ESTER Administration Sodium Chloride 10 ml 03/21/25 16:27 Sodium Chloride Flush 0.9% 10 Ml Syringe IVP PRN PRN Per Line Care protocol Throat Lozenges 1 lozenge 03/19/25 22:39 Benzocaine/Menthol Lozenge MM Q2HR PRN Throat pain Venlafaxine HCl 150 mg 03/20/25 09:00 03/22/25 08:18 Venlafaxine Er 75 Mg Capsule PO 150 mg DAILY ESTER Administration Witch Pamela/Glycerin 1 pad 03/19/25 22:39 Witch Pamela/Glycerin 1 Pad TOP PRN PRN ITCHING Objective Vital Signs/Intake & Output Reviewed Vital Signs: Yes Vital Signs: Vital Signs x48h Temp Pulse Resp BP Pulse Ox O2 Flow Rate 03/23/25 04:00 36.7 C 91 18 146/95 H 91 L 03/23/25 01:08 78 95 2 03/23/25 01:07 104 H 20 87 L Intake & Output: Intake & Output 03/20/25 03/21/25 03/22/25 03/23/25 23:59 23:59 23:59 23:59 Intake Total 4176 / 4176 1000 / 1000 1100 / 1100 400 / 400 Output Total 50 / 50 Balance 4176 / 4176 1000 / 1000 1100 / 1100 350 / 350 Objective General Appearance: positive No acute distress and Alert Eyes Bilateral: positive Normal inspection, PERRL, EOMI and Conjunctivae nml ENT: positive ENT inspection nml and No signs of dehydration Neck: positive Nml inspection and No JVD Respiratory: positive No respiratory distress (on RA) and Rhonchi (mild expiratory rhonchi at the base) Cardiovascular: positive Regular rate & rhythm and No murmur Abdomen: positive Non-tender and Other (Distended); negative Guarding or Rebound Rectal: positive Non-tender and Other (Rectal exam was performed with mat cutter present. Anal sphincter intact without fissure. No formed stool in rectal vault. No blood.) Back: positive Nml inspection Skin: positive Color nml, Warm and Dry Extremities: positive No pedal edema Neurologic/Psychiatric: positive Oriented x3 and Mood/affect nml Comments/Other: Abdomen still with distension similar to yesterday. Nontender to palpation without rebound or guarding. Transverse scar noted, no other surgical scars. No hernia. Lab Results 03/22/25 05:48 03/23/25 08:57 Other Labs: Lab Results x24hrs 03/22/25 Range/Units 05:48 WBC 10.9 H (4.8-10.8) x10^3/uL RBC 4.07 L (4.20-5.40) 10^6/uL Hgb 10.4 L (12.0-16.0) g/dL Hct 34.7 L (37.0-47.0) % MCV 85.3 (81.0-99.0) fL MCH 25.6 L (27.0-31.0) pg MCHC 30.0 L (32.0-36.0) g/dL RDW 16.5 H (12.0-15.0) % Plt Count 337 (130-450) 10^3/uL MPV 8.0 (7.9-10.8) fL Sodium 131 L (135-145) mmol/L Potassium 3.2 L (3.5-4.5) mmol/L Chloride 97 L (101-111) mmol/L Carbon Dioxide 28 (21-32) mmol/L Anion Gap 6.0 (6-13) BUN 8 (6-20) mg/dL Creatinine 0.4 L (0.6-1.3) mg/dL Estimated GFR (MDRD) 159 (>89) Glucose 128 H (74-104) mg/dL Calcium 9.1 (8.5-10.3) mg/dL Diagnostic Imaging Diagnostic Imaging Results: positive Final report reviewed Diagnostic Imaging Comments: 03-21-2025 SBFT XR There is abnormal slow transit of ingested contrast throughout the small bowel. At 8 hours, no contrast is visualized in the colon and remains predominantly in loops of small bowel in the lower pelvis. 03-19-2025 CT AP with contrast, compared to 01-30-2025. Personally reviewed and interpreted by me. Notably dilated loops of small and large bowel throughout, with stool burden predominantly in the distal sigmoid rectal region. No discrete transition point identified. No evidence of perforation. Gastric wall thickening noted. Other Results/Comments Other Results/Comments: 03-19-2025 UA contaminated sample Sepsis Event Note (H) Evaluation Current Stage of Sepsis: Ruled out Assessment/Plan Problem List (1) Diarrhea: Qualifiers: Diarrhea type: unspecified type Qualified Code(s): R19.7 - Diarrhea, unspecified (2) Chronic, continuous use of opioids: (3) Ileus: (4) Colitis: Impression: Patient still has abdominal distention. She is passing liquidy watery stool but scant. I do not believe we have actually cleared her obstruction. She has been on scheduled osmotic laxatives as well as prokinetic laxatives. She is wanting to have advance her diet. Recall patient has chronic GI issues are mostly constipation driven. She likely has some overflow diarrhea and leakage that explains her episodes of incontinence. Suspect most of her symptoms are driven by damming of stool. Discussed her case with general surgery on 03/22. They are in agreement. Her only abdominal surgical hx is a . Other alternatives considered include IBD given history of recurrent diarrhea and constipation however she never had any blood in stool. Clinically she remains stable with fair appetite and no nausea. Passing flatus but no stool, her abdomen remains distended. Manual disimpaction was attempted 03/22 at bedside, however there was no stool in the rectal vault. Rectal exam was unremarkable. - Continue MiraLAX 3 times daily - Bisacodyl daily - Adding Fleet enema every 4 hours - Advance diet to regular - Encourage mobility - Likely nothing surgical. Surgery is now signed off. - Discharge instructions to include likely daily MiraLAX and/or fiber supplementation. (5) Anemia: Impression: Likely dilutional anemia. Hgb stable now 10.2 ->10.4. She is asymptomatic without lightheadedness dizziness. Will monitor given her history of upper GI bleeds and ulcers. Last colonoscopy few years back and normal. -Stopped NSAIDs -Should have chronic anemia workup in the outpatient, possible hematology referral (6) Hypokalemia: (7) Hypomagnesemia: Impression: Likely related to GI losses and suspect chronic magnesium losses, potentially from PPIs. Patient has been taking home potassium tablets. - IV mag today - -Continue to recheck her electrolytes in the morning to ensure stability -Replete K+ as necessary -Continue magnesium supplementation indefinitely (8) Tobacco dependence: Impression: Current 1/2 pack every day smoker. Patient remains precontemplative about stopping smoking. Smoking cessation counseling on admission and on hospital day 1. - Has received nicotine patch here - Will encourage to continue NRT on discharge (9) COPD (chronic obstructive pulmonary disease): Impression: Not in exacerbation. Was on some oxygen initially, suspect mostly related to her abdominal distention impairing diaphragmatic activity. Stable now on RA. No changes to cough or sputum. - Albuterol prn. (10) Ashwin ulcer: Impression: Patient has history of Ashwin ulcer. History of upper GI bleed in the setting. She should be on indefinite PPI. Smoking cessation recommended as above. - PPI at discharge - NRT at discharge
[2025-03-23 09:14] LABS: BUN - BLOOD UREA NITROGEN 6.0 mg/dL (6-20); CARBON DIOXIDE - CO2 27.0 mmol/L (21-32); CREATININE 0.4 mg/dL (0.6-1.3); GFR - MDRD 159.0 (>89)
[2025-03-23] MEDS: BENZONATATE 100 MG CAPSULE PO PRN (09:24)
[2025-03-23] MEDS ORDERED: MAGNESIUM SULFATE 1 GM/2 ML VIAL IVP SCH (14:00)
[2025-03-23] MEDS: MAGNESIUM SULFATE 2 GRAM 2 GM/50 ML BAG IV ONE (14:41)
[2025-03-23] MEDS: SALINE ENEMA 133 ML BOTTLE RC SCH (16:20)
[2025-03-24 06:21] LABS: BUN - BLOOD UREA NITROGEN 7.0 mg/dL (6-20); CARBON DIOXIDE - CO2 28.0 mmol/L (21-32); CREATININE 0.4 mg/dL (0.6-1.3); GFR - MDRD 159.0 (>89)
[2025-03-24] MEDS ORDERED: MAGNESIUM SULFATE 1 GM/2 ML VIAL IVP SCH (08:00)
--- NOTE | 2025-03-24 08:23 | PROVIDER PROGRESS NOTE ---
Subjective Prog Note Date Prog Note Date: 03/24/25 Prog Note Time: 08:22 Subjective Subjective: Patient still is not having significant bowel movement. She is having watery loose stools probably consistent with overflow. She says that her abdominal distention improved somewhat at times, but has not improved significantly. She is still using oral opiates up to 3 times a day for her abdominal pain. Adding on senna for prokinetic effects. Adding milk of magnesia this morning. Enemas still on board, I have told the patient she can refuse, as they have not seem to mobilize with her used yesterday. Electrolytes are still needing to be monitored closely, replacing potassium and magnesium this morning. Kidney function remains stable. Current Medications Current Medications Current Medications: Current Medications Generic Name Dose Route Start Last Admin Trade Name Freq PRN Reason Stop Dose Admin Acetaminophen 1,000 mg 03/20/25 23:00 03/24/25 05:27 Acetaminophen 500 Mg Tablet PO 1,000 mg TID ESTER Administration Alcohol 1 amp 03/19/25 23:00 03/23/25 18:55 Ethyl Alcohol 62% Swab Ampule MATT 1 amp BID ESTER Administration Amlodipine Besylate 5 mg 03/20/25 09:00 03/23/25 18:55 Amlodipine 5 Mg Tablet PO 5 mg BID ESTER Administration Benzonatate 100 mg 03/19/25 22:35 03/23/25 09:24 Benzonatate 100 Mg Capsule PO 100 mg TID PRN Administration Cough Budesonide 0.5 mg 03/20/25 19:00 03/24/25 07:21 Budesonide 0.5 Mg/2 Ml Neb INH 0.5 mg RTBID ESTER Administration Calamine 1 applic 03/19/25 22:39 Calamine/Zinc Oxide 177 Ml Bottle TOP PRN PRN SKIN CARE Carboxymethylcellulose 1 drops 03/19/25 22:39 Carboxymethylcellulose Ophth Drops EACHEYE PRN PRN Dry Eye Cholecalciferol 50 mcg 03/20/25 09:00 03/23/25 09:25 Cholecalciferol 25 Mcg Tablet PO 50 mcg DAILY ESTER Administration Formoterol Fumarate 20 mcg 03/20/25 19:00 03/24/25 07:21 Formoterol Fumarate Neb 20 Mcg/2 Ml INH 20 mcg RTBID ESTER Administration Hydrochlorothiazide 25 mg 03/20/25 09:00 03/23/25 09:25 Hydrochlorothiazide 25 Mg Tablet PO 25 mg DAILY ESTER Administration Magnesium Sulfate 2 gm in 50 mls @ 25 mls/hr 03/24/25 09:00 Magnesium Sulfate IV 03/24/25 10:59 ONCE ONE Lisinopril 40 mg 03/20/25 01:00 03/23/25 09:24 Lisinopril 20 Mg Tablet PO 40 mg DAILY ESTER Administration Lorazepam 0.5 mg 03/19/25 22:32 03/23/25 18:51 Lorazepam 0.5 Mg Tablet PO 0.5 mg BID PRN Administration ANXIETY Magnesium Hydroxide 2,400 mg 03/24/25 07:24 Magnesium Hydroxide 2,400 Mg/30 Ml Udc PO 03/29/25 07:23 ONCE PRN CONSTIPATION Magnesium Oxide 400 mg 03/20/25 08:00 03/23/25 09:25 Magnesium Oxide 400 Mg Tablet PO 400 mg DAILYWM ESTER Administration Nicotine 1 patch 03/20/25 07:26 03/21/25 16:00 Nicotine 14 Mg Patch TOP 1 patch DAILY PRN Administration Nicotine Craving Ondansetron HCl 4 mg 03/19/25 22:35 03/21/25 14:15 Ondansetron 4 Mg/2 Ml Vial IVP 4 mg Q8H PRN Administration Nausea / Vomiting Oxycodone HCl 5 mg 03/20/25 16:21 03/24/25 06:54 Oxycodone 5 Mg Tablet PO 5 mg Q6H PRN Administration pain Pantoprazole Sodium 40 mg 03/20/25 07:00 03/24/25 06:54 Pantoprazole 40 Mg Tablet PO 40 mg BIDAC ESTER Administration Phenol/Menthol 2 sprays 03/19/25 22:39 Phenol Throat [place] 177 Ml MM Q2HR PRN Throat Pain Polyethylene Glycol 17 gm 03/22/25 12:00 03/24/25 06:54 Polyethylene Glycol 3350 17 Gm Packet PO 17 gm TID ESTER Administration Potassium Chloride 20 meq 03/20/25 08:00 03/23/25 09:25 Potassium Chloride 20 Meq Tablet PO 20 meq DAILYWM ESTER Administration Senna 17.2 mg 03/24/25 09:00 Senna 8.6 Mg Tablet PO BID ESTER Simethicone 80 mg 03/20/25 09:56 03/23/25 17:24 Simethicone Chew 80 Mg Tablet PO 80 mg Q6H PRN Administration Gas Sodium Biphosphate/Sodium Phosphate 266 ml 03/23/25 14:00 03/24/25 06:56 Saline Enema 133 Ml Bottle RC Not Given Q4H ESTER Sodium Chloride 10 ml 03/21/25 17:00 03/24/25 00:37 Sodium Chloride Flush 0.9% 10 Ml Syringe IVP 10 ml 0100,0900,1700 ESTER Administration Sodium Chloride 10 ml 03/21/25 16:27 Sodium Chloride Flush 0.9% 10 Ml Syringe IVP PRN PRN Per Line Care protocol Throat Lozenges 1 lozenge 03/19/25 22:39 Benzocaine/Menthol Lozenge MM Q2HR PRN Throat pain Venlafaxine HCl 150 mg 03/20/25 09:00 03/23/25 09:25 Venlafaxine Er 75 Mg Capsule PO 150 mg DAILY ESTER Administration Witch Pamela/Glycerin 1 pad 03/19/25 22:39 Witch Pamela/Glycerin 1 Pad TOP PRN PRN ITCHING Objective Vital Signs/Intake & Output Reviewed Vital Signs: Yes Vital Signs: Vital Signs x48h Temp Pulse Pulse Resp BP BP Pulse Ox 03/24/25 08:19 36.6 C 83 20 155/93 H 92 03/24/25 07:22 80 20 03/24/25 05:19 36.9 C 83 20 152/90 H 95 03/24/25 00:26 37.0 C 90 20 176/98 H 93 Intake & Output: Intake & Output 03/21/25 03/22/25 03/23/25 03/24/25 23:59 23:59 23:59 23:59 Intake Total 1000 / 1000 1100 / 1100 1720 / 1720 Output Total 50 / 50 Balance 1000 / 1000 1100 / 1100 1670 / 1670 Objective Comments/Other: GEN: No acute distress, tired appearing HEENT: NC/AT, normal appearance of external ears and nose. Hearing baseline. Moist mucous membranes Cardiac: Regular rate and rhythm, no murmurs. No visible JVP elevation. No lower extremity edema. Euvolemic on exam. Pulm: Lungs CTA bilaterally, no cough, no wheezes. Normal effort on room air. Abdomen: Taut distention. Diffusely tender to palpation. No guarding. No rebound tenderness. Extremities: Moves all 4 extremities equally. Normal tone. Neuro: Face symmetric, CN II through XII intact grossly. Independent in the room. Normal gait. Psych: Mood euthymic with congruent affect. Lab Results 03/22/25 05:48 03/24/25 05:09 Other Labs: Lab Results x24hrs 03/24/25 03/23/25 Range/Units 05:09 08:57 Sodium 131 L 132 L (135-145) mmol/L Potassium 3.0 L 3.5 (3.5-4.5) mmol/L Chloride 96 L 99 L (101-111) mmol/L Carbon Dioxide 28 27 (21-32) mmol/L Anion Gap 7.0 6.0 (6-13) BUN 7 6 (6-20) mg/dL Creatinine 0.4 L 0.4 L (0.6-1.3) mg/dL Estimated GFR (MDRD) 159 159 (>89) Glucose 98 124 H (74-104) mg/dL Calcium 8.9 8.5 (8.5-10.3) mg/dL Magnesium 1.5 L 1.4 L (1.7-2.3) mg/dL Sepsis Event Note (H) Evaluation Current Stage of Sepsis: Ruled out Assessment/Plan Problem List (1) Diarrhea: Qualifiers: Diarrhea type: unspecified type Qualified Code(s): R19.7 - Diarrhea, unspecified (2) Chronic, continuous use of opioids: (3) Ileus: (4) Colitis: Impression: Patient still has painful abdominal distention. She is passing liquidy watery stool but scant. She likely still has solid stool in her proximal sigmoid or distal colon. Not nauseous. Not vomiting. Recall patient has chronic GI issues which likely mostly constipation driven. She likely has some overflow diarrhea and leakage that explains her episodes of incontinence. Suspect most of her symptoms are driven by damming of stool. Discussed her case with general surgery on 03/22. They are in agreement. Her only abdominal surgical hx is a . Other alternatives considered include IBD given history of recurrent diarrhea and constipation however she never had any blood in stool. Clinically she remains stable with fair appetite and no nausea. Passing flatus but no stool, her abdomen remains distended. Manual disimpaction was attempted 03/22 at bedside, however there was no stool in the rectal vault. Rectal exam was unremarkable. - Continue MiraLAX 3 times daily - MOM x 1 today - Senna 17.2 twice daily - Fleet enema every 4 hours, though it has not been doing much. - She is on a regular diet at her request. - Encourage mobility - Likely nothing surgical. Surgery is now signed off. - Discharge instructions to include likely daily MiraLAX and/or fiber supplementation. - Will need to follow-up with surgery for EGD and screening colon. (5) Anemia: Impression: Stable chronic anemia. Hemoglobin hovering around 10.5. No tachycardia, hypotension, or symptoms of hypovolemia. No other symptoms of anemia. Denies lightheadedness, dizziness, dyspnea, Or chest pain. No neal blood in her stool. No melena. She has a history of Ashwin ulcer as below. She initially endorsed that she had had a colonoscopy a few years back, but after review with general surgery, she has never had a colonoscopy. Denies blood in her stool. No family history of colon cancer. - Reinforced discontinuation of NSAIDs at discharge - Outpatient chronic anemia workup including EGD and screening colon As above (6) Hypokalemia: (7) Hypomagnesemia: Impression: Likely related to GI losses and suspect chronic magnesium losses, potentially from PPIs. Patient has been taking home potassium tablets. 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 - Replete magnesium IV and orally today - Continue indefinite magnesium supplementation orally - Potassium repletion again today. - Monitor BMP a.m. (8) Tobacco dependence: Impression: Current 1/2 pack every day smoker. Patient remains precontemplative about stopping smoking. Smoking cessation counseling on admission and on hospital day 1. - Has received nicotine patch here - Will encourage to continue NRT on discharge (9) COPD (chronic obstructive pulmonary disease): Impression: Not in exacerbation. Was on some oxygen initially, suspect mostly related to her abdominal distention impairing diaphragmatic activity. Stable now on RA. No changes to cough or sputum. - Albuterol prn. (10) Ashwin ulcer: Impression: Patient has history of Ashwin ulcer. History of upper GI bleed in the setting. She should be on indefinite PPI. Smoking cessation recommended as above. - PPI at discharge - NRT at discharge - Follow-up with surgery for EGD and screening colon as above
[2025-03-24] MEDS: SENNA 8.6 MG TABLET PO SCH (08:59)
[2025-03-24] MEDS: POTASSIUM CHLORIDE 20 MEQ TABLET PO ONE (09:00)
[2025-03-24] MEDS: MAGNESIUM HYDROXIDE 2,400 MG/30 ML UDC PO PRN (09:09)
[2025-03-24] MEDS: MAGNESIUM SULFATE 2 GRAM 2 GM/50 ML BAG IV ONE (09:10)
--- NOTE | 2025-03-24 09:24 | XRAY Report ---
PROCEDURE: XR Abdomen 1 V INDICATIONS: SBFT, assess contrast position TECHNIQUE: 1 view of the abdomen was acquired. COMPARISON: None. FINDINGS: Surgical changes and devices: None. Bowel: Contrast present in the colon and rectum. Persistent gaseous distention of the bowel Soft tissues: No masses; visualized solid organ contours appear normal in size. No suspicious abdominal calcifications. Bones: No suspicious bony abnormalities. IMPRESSION: Enteric contrast in the rectum. No obstruction. Gaseous distention of the bowel consistent with ileus or enteritis Reviewed by: Jacob Dunaway MD on 03/24/2025 8:20 AM IBIS Approved by: Jacob Dunaway MD on 03/24/2025 8:20 AM AKZENA Station ID: [id number]
[2025-03-25 06:41] LABS: BUN - BLOOD UREA NITROGEN 7.0 mg/dL (6-20); CARBON DIOXIDE - CO2 28.0 mmol/L (21-32); CREATININE 0.4 mg/dL (0.6-1.3); GFR - MDRD 159.0 (>89)
--- NOTE | 2025-03-25 08:14 | PROVIDER PROGRESS NOTE ---
Subjective Prog Note Date Prog Note Date: 03/25/25 Prog Note Time: 08:10 Subjective Subjective: Starting to have more formed stool. Electrolytes still abnormal this morning, K was replaced Some abnormal telemetry strips overnight. Concern for A-fib versus bundle branch block. Twelve-lead EKG this morning with known incomplete left bundle branch block. Otherwise unchanged. Sinus rhythm, P waves evident. Patient still very distended in the abdomen. Softening somewhat. No nausea or vomiting. Denies fevers or chills. Will continue to do aggressive bowel regimen. Scheduled MiraLAX multiple times today. MOM x 1 again this morning. Continue prokinetic agents. Continue Fleet enemas. Likely will discharge on scheduled MiraLAX and Senna that she can de- escalate if she is having frequent diarrhea. Possible discharge later today. Current Medications Current Medications Current Medications: Current Medications Generic Name Dose Route Start Last Admin Trade Name Freq PRN Reason Stop Dose Admin Acetaminophen 1,000 mg 03/20/25 23:00 03/25/25 06:44 Acetaminophen 500 Mg Tablet PO 1,000 mg TID ESTER Administration Amlodipine Besylate 5 mg 03/20/25 09:00 03/24/25 21:26 Amlodipine 5 Mg Tablet PO 5 mg BID ESTER Administration Benzonatate 100 mg 03/19/25 22:35 03/23/25 09:24 Benzonatate 100 Mg Capsule PO 100 mg TID PRN Administration Cough Budesonide 0.5 mg 03/20/25 19:00 03/25/25 08:04 Budesonide 0.5 Mg/2 Ml Neb INH 0.5 mg RTBID ESTER Administration Calamine 1 applic 03/19/25 22:39 Calamine/Zinc Oxide 177 Ml Bottle TOP PRN PRN SKIN CARE Carboxymethylcellulose 1 drops 03/19/25 22:39 Carboxymethylcellulose Ophth Drops EACHEYE PRN PRN Dry Eye Cholecalciferol 50 mcg 03/20/25 09:00 03/24/25 09:00 Cholecalciferol 25 Mcg Tablet PO 50 mcg DAILY ESTER Administration Formoterol Fumarate 20 mcg 03/20/25 19:00 03/25/25 08:04 Formoterol Fumarate Neb 20 Mcg/2 Ml INH 20 mcg RTBID ESTER Administration Hydrochlorothiazide 25 mg 03/20/25 09:00 03/24/25 09:00 Hydrochlorothiazide 25 Mg Tablet PO 25 mg DAILY ESTER Administration Lisinopril 40 mg 03/20/25 01:00 03/24/25 08:59 Lisinopril 20 Mg Tablet PO 40 mg DAILY ESTER Administration Lorazepam 0.5 mg 03/19/25 22:32 03/24/25 21:27 Lorazepam 0.5 Mg Tablet PO 0.5 mg BID PRN Administration ANXIETY Magnesium Hydroxide 2,400 mg 03/24/25 07:24 03/24/25 09:09 Magnesium Hydroxide 2,400 Mg/30 Ml Udc PO 03/29/25 07:23 2,400 mg ONCE PRN Administration CONSTIPATION Magnesium Oxide 400 mg 03/20/25 08:00 03/24/25 09:00 Magnesium Oxide 400 Mg Tablet PO 400 mg DAILYWM ESTER Administration Nicotine 1 patch 03/20/25 07:26 03/21/25 16:00 Nicotine 14 Mg Patch TOP 1 patch DAILY PRN Administration Nicotine Craving Ondansetron HCl 4 mg 03/19/25 22:35 03/21/25 14:15 Ondansetron 4 Mg/2 Ml Vial IVP 4 mg Q8H PRN Administration Nausea / Vomiting Oxycodone HCl 5 mg 03/20/25 16:21 03/25/25 02:45 Oxycodone 5 Mg Tablet PO 5 mg Q6H PRN Administration pain Pantoprazole Sodium 40 mg 03/20/25 07:00 03/25/25 06:44 Pantoprazole 40 Mg Tablet PO 40 mg BIDAC ESTER Administration Phenol/Menthol 2 sprays 03/19/25 22:39 Phenol Throat [place] 177 Ml MM Q2HR PRN Throat Pain Polyethylene Glycol 17 gm 03/22/25 12:00 03/25/25 06:44 Polyethylene Glycol 3350 17 Gm Packet PO 17 gm TID ESTER Administration Potassium Chloride 20 meq 03/20/25 08:00 03/24/25 09:00 Potassium Chloride 20 Meq Tablet PO 20 meq DAILYWM ESTER Administration Senna 17.2 mg 03/24/25 09:00 03/24/25 21:26 Senna 8.6 Mg Tablet PO 17.2 mg BID ESTER Administration Simethicone 80 mg 03/20/25 09:56 03/25/25 02:46 Simethicone Chew 80 Mg Tablet PO 80 mg Q6H PRN Administration Gas Sodium Biphosphate/Sodium Phosphate 266 ml 03/23/25 14:00 03/25/25 06:59 Saline Enema 133 Ml Bottle RC Not Given Q4H ESTER Sodium Chloride 10 ml 03/21/25 17:00 03/25/25 01:50 Sodium Chloride Flush 0.9% 10 Ml Syringe IVP 10 ml 0100,0900,1700 ESTER Administration Sodium Chloride 10 ml 03/21/25 16:27 Sodium Chloride Flush 0.9% 10 Ml Syringe IVP PRN PRN Per Line Care protocol Throat Lozenges 1 lozenge 03/19/25 22:39 Benzocaine/Menthol Lozenge MM Q2HR PRN Throat pain Venlafaxine HCl 150 mg 03/20/25 09:00 03/24/25 08:59 Venlafaxine Er 75 Mg Capsule PO 150 mg DAILY ESTER Administration Witch Pamela/Glycerin 1 pad 03/19/25 22:39 Witch Pamela/Glycerin 1 Pad TOP PRN PRN ITCHING Objective Vital Signs/Intake & Output Reviewed Vital Signs: Yes Vital Signs: Vital Signs x48h Temp Pulse Pulse Pulse Resp BP Pulse Ox 03/25/25 08:05 88 18 03/25/25 07:43 36.6 C 86 22 153/93 H 94 03/25/25 04:37 36.7 C 84 20 160/109 H 96 Intake & Output: Intake & Output 03/22/25 03/23/25 03/24/25 03/25/25 23:59 23:59 23:59 23:59 Intake Total 1100 / 1100 1720 / 1720 1330 / 1330 Output Total 50 / 50 Balance 1100 / 1100 1670 / 1670 1330 / 1330 Objective Comments/Other: GEN: No acute distress. HEENT: NC/AT, normal appearance of external ears and nose. Hearing baseline. Moist mucous membranes Cardiac: Regular rate and rhythm, no murmurs. No visible JVP elevation. No lower extremity edema. Euvolemic on exam. Pulm: Lungs CTA bilaterally, no cough, no wheezes. Normal effort on room air. Abdomen: Slight softening of the abdomen today. Tender to deep palpation, but not allodynic as prior. No guarding. No rebound tenderness. Extremities: Moves all 4 extremities equally. Normal tone. Neuro: Face symmetric, CN II through XII intact grossly. Independent in the room. Normal gait. Psych: Mood euthymic with congruent affect. Lab Results 03/22/25 05:48 03/25/25 06:10 Other Labs: Lab Results x24hrs 03/25/25 Range/Units 06:10 Sodium 134 L (135-145) mmol/L Potassium 3.4 L (3.5-4.5) mmol/L Chloride 100 L (101-111) mmol/L Carbon Dioxide 28 (21-32) mmol/L Anion Gap 6.0 (6-13) BUN 7 (6-20) mg/dL Creatinine 0.4 L (0.6-1.3) mg/dL Estimated GFR (MDRD) 159 (>89) Glucose 100 (74-104) mg/dL Calcium 8.9 (8.5-10.3) mg/dL Sepsis Event Note (H) Evaluation Current Stage of Sepsis: Ruled out Assessment/Plan Problem List (1) Chronic, continuous use of opioids: (2) Ileus: (3) Colitis: Impression: Abdominal pain slightly improving. Abdomen less taut this AM. She has very liquidy stool output per nursing report. She reports scant solids as the morning of 03/25. Tolerating bowel regimen. No nausea or vomiting. Recall patient has chronic GI issues which likely mostly constipation driven. She likely has some overflow diarrhea and leakage that explains her episodes of incontinence. Suspect most of her symptoms are driven by damming of stool. Discussed her case with general surgery on 03/22. They are in agreement. Her only abdominal surgical hx is a . Other alternatives considered include IBD given history of recurrent diarrhea and constipation however she never had any blood in stool. Clinically she remains stable with fair appetite and no nausea. Passing flatus but no stool, her abdomen remains distended. Manual disimpaction was attempted 03/22 at bedside, however there was no stool in the rectal vault. Rectal exam was unremarkable. Likely nothing surgical. Surgery is now signed off. - Continue MiraLAX 3 times daily - Repeat milk of magnesia today - Senna 17.2 twice daily - Fleet enema every 4 hours, though it has not been doing much. - She is on a regular diet at her request. - Encourage mobility - Once she is moving her bowels, is ready for discharge with daily MiraLAX and senna, she can de-escalate once she is having regular diarrhea - Will continue in the hospital with bowel regimen and monitor her electrolytes while doing so - Will need to follow-up with surgery for EGD and screening colon. (4) Anemia: Impression: Stable chronic anemia. Hgb hovering around 10.5. No tachycardia, hypotension, or symptoms of hypovolemia. No evident bleeding. No other symptoms of anemia. Denies lightheadedness, dizziness, dyspnea, Or chest pain. No neal blood in her stool. No melena. She has a history of Ashwin ulcer as below. She initially endorsed that she had had a colonoscopy a few years back, but after review with general surgery, she has never had a colonoscopy. Denies blood in her stool. No family history of colon cancer. - Reinforced discontinuation of NSAIDs at discharge - Outpatient chronic anemia workup including EGD and screening colon as above (5) Hypokalemia: (6) Hypomagnesemia: Impression: Some abnormal findings on telemetry last night, but EKG this morning reveals normal sinus rhythm. Likely related to GI losses and suspect chronic magnesium losses, potentially from PPIs. Patient has been taking home potassium tablets. 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 - Continue telemetry - Continue indefinite magnesium supplementation orally - Potassium repletion again today. - Monitor BMP, mag a.m. (7) Tobacco dependence: Impression: Current 1/2 pack every day smoker. Patient remains precontemplative about stopping smoking. Smoking cessation counseling on admission and on hospital day 1. - Has received nicotine patch here - Will encourage to continue NRT on discharge (8) COPD (chronic obstructive pulmonary disease): Impression: Not in exacerbation. Was on some oxygen initially, suspect mostly related to her abdominal distention impairing diaphragmatic activity. Stable now on RA. No changes to cough or sputum. - Albuterol prn. (9) Ashwin ulcer: Impression: Patient has history of Ashwin ulcer. History of upper GI bleed in the setting. She should be on indefinite PPI. Smoking cessation recommended as above. - PPI at discharge - NRT at discharge - Follow-up with surgery for EGD and screening colon as above
[2025-03-25] MEDS ORDERED: MAGNESIUM HYDROXIDE 2,400 MG/30 ML UDC PO SCH (12:00)
[2025-03-25] MEDS: MAGNESIUM HYDROXIDE 2,400 MG/30 ML UDC PO ONE ×2 (13:18→13:33)
[2025-03-26 05:23] LABS: BUN - BLOOD UREA NITROGEN 10.0 mg/dL (6-20); CARBON DIOXIDE - CO2 28.0 mmol/L (21-32); CREATININE 0.4 mg/dL (0.6-1.3); GFR - MDRD 159.0 (>89)
--- NOTE | 2025-03-26 09:06 | Discharge Summary ---
Discharge Summary Admit Date: 03/19/25 Discharge Date: 03/26/25 Discharging Provider: Juan Mulligan Primary Care Provider: Monik Mena Code Status: Attempt Resuscitation Discharge Facility Name: Home DIAGNOSES Discharge Diagnoses with Status of Each Condition: ## Concern for ileus ## Constipation ## Overflow diarrhea Patient was admitted initially with concern for intestinal blockage. She has worsened abdominal distention over the days preceding her hospitalization. CT showed large amounts of distention. No clear transition point. She had a small bowel follow-through and despite slow transit, eventually did move contrast to her colon. She was started then on aggressive bowel regimen with some improvement, but continues to have significant distention and pain. She never got nauseous. She has been having some liquidy stool, but I suspect she has not moved to most of her stool ball that was in her proximal sigmoid and distal colon. She feels well enough to continue her bowel regimen at home. - Continue scheduled MiraLAX up to 3 times daily - Continue daily senna 17.2 mg twice daily - Return precautions discussed - She will need BMP checked in the next 1 to 2 weeks to make sure she is maintaining her fluids - I have advised her to avoid antidiarrheals in the future, because I suspect she has a primary constipation problem, and any diarrhea is likely overflow - She can consider follow-up with GI for management of IBS-C - Screening colonoscopy as below ## Hypomagnesemia ## Hypokalemia Patient's history of chronic hypokalemia. She was found to be profoundly hypomagnesemic initially on arrival. She received regular replacement of her potassium throughout the admission. She was started on a daily magnesium supplement orally. On the day of discharge, her potassium is normalized at 3.6. Her magnesium is 1.8. Her electrolyte abnormalities are likely multifactorial but may be from her GI losses as well as PPI as below. - Continue daily magnesium supplement - Reasonable to continue her 20 mill equivalents potassium supplement while on bowel regimen as above - BMP in 1 to 2 weeks to monitor her electrolytes and kidney function ## History of Ashwin ulcer ## History of upper GI bleed She did not have any further GI bleeding. She has a remote history of GI bleed caused by Ashwin ulcer. This was identified on EGD earlier this year. She has not yet followed up with general surgery for surveillance endoscopy. She is due for a screening colon, potentially has never had one. - Patient to follow-up with general surgery for endoscopy - Continue pantoprazole twice daily indefinitely HPI History of Present Illness: pt with abd pain / cramping that has gotten worse over last 2-3 days. no fevers but has chills. no chest pain or sob. smokes 10-12 cigarettes daily for "many years" but denies other substances. h/o htn. no falls. no dysuria or hematuria. states that she saw her pcp on mar 08 after being constipated x 8 days prior to appt, and she was given rx for laxative, which relieved her symptoms but she began having copious diarrhea - even accidentally. no blood in stool. pt reports having history of dark stools for which she underwent endoscopy and found to have ulcers, but no abdominal interventions. CONSULTS | PROCEDURES Consultations: General Surgery Procedures: CT Abd pelvis SBFT HOSPITAL COURSE Hospital Course: Patient was admitted with an unclear history of whether she had an ileus or was that she was having diarrhea. She reported to story after admission that she was having diarrhea, then received antidiarrheals then had not had a bowel movement actually since the day of admission. Her imaging from a CT that was done in the ED finds large gas pattern and distended abdomen. No clear transition point. She was initially treated with suppositories and enemas with an attempt to decompress her bowels. She did not have much success with this. She would pass the enema without success. Then she was trialed on a small bowel follow- through. Contrast was slow to transit, but did finally transit to her colon by 18 hours. At this point she was started on an aggressive bowel regimen including multiday dosing of MiraLAX, prokinetic agents, Multiple enemas per day. Milk of magnesia was added. She began having loose but scant bowel movements. Efforts were made to manually disimpact her, but there was no stool in the rectal vault. Suspect based on her imaging that most of her stool burden is too proximal to reach. She was improving though slowly, and thought appropriate to continue to manage her constipation at home. She was in agreement with this. We prescribed senna, MiraLAX and I suggested that she add on milk of magnesia intermittently if needed. Given that she likely has chronic constipation, I recommended daily MiraLAX supplement once she is more normalized. She was seen by general surgery, who felt there was nothing operative that needed to be done. She is due for a screening colonoscopy, perhaps has never had one, and needs monitoring of her Ashwin's ulcer which caused an upper GI bleed earlier this year. She will follow-up with Dr. Rees Hospitalization was complicated by electrolyte abnormalities. She was profoundly hypomagnesemic when she first came in. Started on a daily magnesium supplement which I think she should continue indefinitely. She has been chronically hypokalemic, and been on potassium supplementation long-term. Reasonable for her to continue this, but I recommend she have her labs checked by her primary care doctor within the next 1 to 2 weeks. She stated good understanding of this, and was discharged in stable condition to home. ALLERGIES Allergies Allergy/AdvReac Type Severity Reaction Status Date / Time codeine AdvReac Mild Nausea Verified 03/19/25 16:46 MEDICATIONS Ambulatory Orders Medication Instructions Recorded Confirmed venlafaxine 150 mg 150 mg PO DAILY #90 caps 12/2903/19/25 capsule,extended release 24 hr fluticasone 250 mcg-salmeterol 50 1 inh inhalation BID #60 ea 11/07/24 03/20/25 mcg/dose blistr powdr for inhalation (Advair Diskus) amlodipine 5 mg tablet 5 mg PO BID 12/07/24 5 lisinopril 40 mg tablet 40 mg PO DAILY 12/07/2403/07 pantoprazole 40 mg tablet,delayed 40 mg PO BIDAC 6 wee ks #84 tabs 01/31/25 03/19/25 release hydrochlorothiazide 25 mg tablet 25 mg PO DAILY hypert ension #90 02/13/25 03/19/25 tabs potassium chloride 20 mEq 20 meq PO DAILYWM #90 tabs 1 03/20/25 tablet,extended release(part/cryst) (Klor-Con M) cholecalciferol (vitamin D3) 50 50 mcg PO DAILY 03/20/25 mcg (2,000 unit) capsule lorazepam 0.5 mg tablet 0.5 mg PO BID PRN Anxiety 03/20/25 acetaminophen 500 mg tablet 1,000 mg (2 x 500 mg) PO T ID #0 03/26/25 (Tylenol Extra Strength) tabs magnesium oxide 400 mg (241.3 mg 400 mg PO DAILYWM #30 tabs 03/26/25 magnesium) tablet nicotine 14 mg/24 hr daily 1 patch topical DAILY PRN N icotine 03/26/25 transdermal patch Craving #28 ea oxycodone 5 mg tablet 5 mg PO Q6H PRN pain #20 tab s 03/26/25 oxycodone 5 mg tablet 5 mg PO Q6HR PRN pain #20 ta bs 03/26/25 polyethylene glycol 3350 17 gram 17 g PO TID #100 ea 1 oral powder packet sennosides 8.6 mg tablet (Senna 17.2 mg (2 x 8.6 mg) P O BID #120 03/26/25 Lax) tabs PHYSICAL EXAM AT DISCHARGE Vital Signs: Vital Signs x48h Temp Pulse Resp BP Pulse Ox 03/26/25 14:05 59 L 182/109 H 03/26/25 14:00 36.9 C 106 H 20 167/116 H 96 LABS 03/22/25 05:48 03/26/25 04:16 SEPSIS Current Stage of Sepsis: Ruled out FOLLOW UP Follow Up: Follow-up with primary care for electrolyte monitoring in the next 1 to 2 weeks, consideration of discontinuation of potassium supplement if improved with magnesium supplementation. Schedule follow-up with general surgery for screening colon and surveillance EGD TIME SPENT Time Spent in Discharge (Minutes): 42 Discharge Plan Discharge Patient Disposition: Home, Self Care Condition: Good Medically Cleared Date:: 03/26/25 Prescriptions: New acetaminophen [Tylenol Extra Strength] 500 mg Tablet 1,000 mg PO TID Qty: 0 0RF sennosides [Senna Lax] 8.6 mg Tablet 17.2 mg PO BID Qty: 120 0RF polyethylene glycol 3350 17 gram Powder In Packet 17 g PO TID Qty: 100 0RF Rx Instructions: Continue miralax up to 3 times daily until having regular diarrhea, then back down until having 1-2 soft bowel movements daily. nicotine 14 mg/24 hr Patch 24 Hour 1 patch topical DAILY PRN (Reason: Nicotine Craving) Qty: 28 0RF magnesium oxide 400 mg (241.3 mg magnesium) Tablet 400 mg PO DAILYWM Qty: 30 0RF oxycodone 5 mg tablet 5 mg PO Q6HR PRN (Reason: pain) Qty: 20 0RF oxycodone 5 mg Tablet 5 mg PO Q6H PRN (Reason: pain) Qty: 20 0RF Continued hydrochlorothiazide 25 mg tablet 25 mg PO DAILY Qty: 90 4RF Rx Instructions: Take 1 tablet by mouth once daily pantoprazole 40 mg Tablet,Delayed Release (Dr/Ec) 40 mg PO BIDAC 42 Days Qty: 84 0RF lorazepam 0.5 mg tablet 0.5 mg PO BID MDD 1 mg PRN (Reason: Anxiety) Patient Comments: Patient states she takes one in the morning, and one around 2pm. Rx Instructions: Take 1 tablet by mouth twice a day as needed anxiety/panic. Use sparingly to reduce risk of tolerance or overuse. Not to exceed 2 tablets daily. cholecalciferol (vitamin D3) 50 mcg (2,000 unit) capsule 50 mcg PO DAILY venlafaxine 150 mg capsule,extended release 24hr 150 mg PO DAILY Qty: 90 4RF amlodipine 5 mg tablet 5 mg PO BID lisinopril 40 mg tablet 40 mg PO DAILY potassium chloride [Klor-Con M20] 20 mEq tablet,ER particles/crystals 20 meq PO DAILYWM Qty: 90 4RF Rx Instructions: take 1 tab daily with food fluticasone propion-salmeterol [Advair Diskus] 250-50 mcg/dose blister with device 1 inh inhalation BID Qty: 60 11RF Patient Comments: Patient states does not have an inhaler at this time. Discontinued omeprazole 40 mg capsule,delayed release(DR/EC) 40 mg PO DAILY Patient Comments: TAKE 1 CAPSULE BY MOUTH EVERY DAY Activity Restrictions: No Restrictions Diet: Regular Health Concerns: You came in with concern for intestinal blockage. You have actually been moving things through your intestine, however I believe you have ongoing stool in your intestine which is caused by chronic constipation. You have been started on some medicines to help move your bowels along. I suspect you may need to be indefinitely on MiraLAX daily, plus or minus the stimulant laxative. Additionally with your history of Ashwin ulcer and GI bleed, you should continue on twice daily pantoprazole which you were taking before this admission. Please follow-up with the general surgery team for surveillance of your ulcer as well as colonoscopy for screening purposes. Regular screening for colon cancer can catch any cancers early and be life preserving. With your Ashwin ulcer, it is important that you try and stop smoking. I am prescribing some nicotine patches if that helps. You have not been smoking during this hospitalization, and I would encourage you to try and stay quit moving forward. Medications: * Polyethylene glycol (Miralax):Take as directed, up to three times daily. Mix the recommended dose in water or another beverage. This medication helps soften stool and increase bowel movements. * Senna 17.2 mg:Take one tablet twice daily. Senna is a stimulant laxative that helps your bowels move more regularly. What to Expect: These medications are effective and generally safe, but may cause mild side effects such as bloating, abdominal discomfort, or diarrhea. If you experience severe abdominal pain, persistent diarrhea, or blood in your stool, contact your healthcare provider promptly. I would prefer your stools to be on the looser side to watery. I suspect most of the incontinence and loose stools you were having before was related to overflow of liquid stool around a solid ball of stool in colon from chronic constipation. It may take several days for your bowel habits to improve. Lifestyle Tips: * Drink plenty of fluids(at least 6-8 glasses of water daily) to help the medications work and prevent dehydration. * Increase dietary fiberby eating fruits, vegetables, and whole grains, unless otherwise instructed. * Stay activewith regular physical activity, such as walking, to help stimulate bowel movements.[3] Follow-Up: You need to see your primary care doctor within two weeksfor laboratory testing and to review your progress. Bring a list of your medications and any symptoms you have experienced. If you do not notice improvement or have concerning symptoms, notify your provider before your scheduled follow-up. When to Seek Immediate Care: * Severe abdominal pain * Vomiting * Blood in stool * No bowel movement for more than 7 days despite treatment Print Language: Mongolian Patient Instructions: Treating Constipation, High Fiber Diet Dc Follow-up Care: Monik Mena ARNP [Primary Care Provider, Family Practice] Debra Rees DO [Provider Admit Priv/Credential, Surgery, General] Referral Note: Schedule for EGD and screening colonoscopy Vitals documented within 30 minutes of discharge?: Yes (see vitals)
[2025-03-26 14:32] VITALS: TEMP 98.4; O2SAT 96
[2025-03-26 14:34] VITALS: BP 182/109
== END 2025-03-26 14:20 | disposition home or self-care (01) | DRG 389 ==
LOC: MS3 16:35 → ED 16:35 → SUATTDRO 22:33 → MS3 23:13
PROVIDERS: ADMIT Student in an Organized Health Care Education/Training Program; ATTEND Student in an Organized Health Care Education/Training Program
DX: K52.89 Other specified noninfective gastroenteritis and colitis; R15.9 Full incontinence of feces; R63.0 Anorexia; Z68.1 Body mass index [BMI] 19.9 or less, adult; K86.89 Other specified diseases of pancreas; T50.906A Underdosing of unspecified drugs, medicaments and biological substances, initial encounter; K59.09 Other constipation; I10 Essential (primary) hypertension; D64.9 Anemia, unspecified; E83.42 Hypomagnesemia; E87.6 Hypokalemia; K56.7 Ileus, unspecified; Z87.11 Personal history of peptic ulcer disease; I44.7 Left bundle-branch block, unspecified; K52.9 Noninfective gastroenteritis and colitis, unspecified; Z91.128 Patient's intentional underdosing of medication regimen for other reason; F17.210 Nicotine dependence, cigarettes, uncomplicated; K80.20 Calculus of gallbladder without cholecystitis without obstruction; J44.9 Chronic obstructive pulmonary disease, unspecified